=== PATIENT | female | born 1975 | race Caucasian/White ===

== ENCOUNTER 2016-09-21 08:55 | Emergency (ER) | payer MEDICAID | END 2016-09-21 11:26 | disposition home or self-care (01) | DX: S63.502A Unspecified sprain of left wrist, initial encounter (principal); M54.6 Pain in thoracic spine; W01.0XXA Fall on same level from slipping, tripping and stumbling without subsequent striking against object, initial encounter; Y93.01 Activity, walking, marching and hiking; R00.0 Tachycardia, unspecified; M79.7 Fibromyalgia; G62.9 Polyneuropathy, unspecified; E03.9 Hypothyroidism, unspecified; Z98.84 Bariatric surgery status; Z87.891 Personal history of nicotine dependence ==

== ENCOUNTER 2016-10-26 | Outpatient (CLI) | payer MEDICAID | END 2016-10-26 17:24 | disposition critical access hospital (66) | DX: R07.89 Other chest pain (principal) | CPT/HCPCS: A0425; A0427 ==

== ENCOUNTER 2016-10-26 | Outpatient (CLI) | payer MEDICAID | END 2016-10-26 16:31 | disposition home or self-care (01) | DX: R07.89 Other chest pain (principal) ==

== ENCOUNTER 2016-10-26 17:56 | Emergency (ER) | payer MEDICAID ==
[2016-10-26] MEDS ORDERED: PREGABALIN 100 MG CAPSULE PO STA (20:26)
[2016-10-26] MEDS ORDERED: CYCLOBENZAPRINE 10 MG TABLET PO STA (20:26)
[2016-10-26] MEDS ORDERED: oxyCOD/ACETAMIN 5 MG/325 MG TABLET PO STA (20:26)
[2016-10-26] MEDS ORDERED: oxyCOD/ACETAMIN 5 MG/325 MG TABLET PO ONE (20:31)
[2016-10-26] MEDS ORDERED: CYCLOBENZAPRINE 10 MG TABLET PO ONE (20:31)
== END 2016-10-26 23:43 | disposition home or self-care (01) ==
DX: R07.9 Chest pain, unspecified (principal); R94.31 Abnormal electrocardiogram [ECG] [EKG]; E03.9 Hypothyroidism, unspecified; G62.9 Polyneuropathy, unspecified; M79.7 Fibromyalgia; Z87.891 Personal history of nicotine dependence
CPT/HCPCS: 36415; 71020; 80048; 84484; 85025; 85379; 93005; 93010; 99284; A9270

== ENCOUNTER 2017-03-11 21:50 | Emergency (ER) | payer MEDICAID ==
[2017-03-11 21:57] VITALS: BP 115/72
--- NOTE | 2017-03-11 22:22 | ED Physician Documentation ---
PD HPI HEENT - Stated complaint Stated Complaint: EAR PX - Chief complaint Chief Complaint: Heent - History obtained from History obtained from: Patient - History of Present Illness Timing - onset: Other (Several days of increasing left ear pain radiating up and down, not related to chewing. No URI symptoms or hearing difficulty. No fever.) Review of Systems Constitutional: denies: Fever, Chills Nose: denies: Rhinorrhea / runny nose, Congestion Throat: denies: Sore throat Cardiac: denies: Chest pain / pressure, Palpitations PD PAST MEDICAL HISTORY - Past Medical History Past Medical History: Yes Cardiovascular: Other Respiratory: None Neuro: Headache/migraine, Peripheral neuropathy Endocrine/Autoimmune: HyPOthyroidism, Other GI: None CRATE TIER: None : Incontinence, Frequency, Other HEENT: None, Chronic vision loss, Chronic hearing loss Psych: Depression, Anxiety Musculoskeletal: Fibromyalgia, Chronic back pain Derm: None - Past Surgical History Past Surgical History: Yes General: Gastric surgery Ortho: Carpal Tunnel surgery HEENT: Tonsil/Adenoidectomy - Present Medications Home Medications: Ambulatory Orders Medication Instructions Recorded Confirmed Levothyroxine [Synthroid] 100 mcg PO DAILY 02/23/14 10/26/16 Cyclobenzaprine [Flexeril] 10 mg PO TID PRN #15 tablet 05/21/15 09/21/16 Oxycodone HCl/Acetaminophen 1 each PO Q8H PRN #20 tablet 10/16/15 10/26/16 [Percocet 10-325 mg Tablet] Hydrochlorothiazide 12.5 mg PO QDBREAKFAST 06/22/16 09/21/16 Pregabalin [Lyrica] 200 mg PO TID #21 capsule 06/22/16 10/26/16 hydrOXYzine PAMOATE [Vistaril] 25 mg PO BID 06/22/16 10/26/16 Loratadine [Allergy] 10 mg PO DAILY PRN 09/15/16 09/21/16 Metoprolol Tartrate 75 mg PO BID 09/15/16 10/26/16 Promethazine [Phenergan] 25 mg PO BID 09/15/16 10/26/16 Meloxicam [Mobic] 7.5 mg PO BID PRN #14 tablet 03/11/17 Neomycin/Polymyx/Hc Otic Drops 4 drops OT TID #1 bottle 07/07/17 [Cortisporin Ear Susp] - Allergies Allergies/Adverse Reactions: Allergies Allergy/AdvReac Type Severity Reaction Status Date / Time No Known Drug Allergies Allergy Verified 03/11/17 21:57 - Social History Does the pt smoke?: No Smoking Status: Former smoker Does the pt drink ETOH?: No Does the pt have substance abuse?: No - Immunizations Immunizations are current?: Yes - POLST Patient has POLST: No PD ED PE NORMAL - Vitals Vital signs reviewed: Yes - General General: Alert and oriented X 3, No acute distress - HEENT HEENT: Other (She has mild left external otitis without much canal swelling. The TM is normal. She is basically edentulous and has no dental tenderness or trismus or facial edema.) - Neck Neck: Supple, no meningeal sign, No bony TTP - Neuro Neuro: Alert and oriented X 3, hoistman 2-12 intact, No motor deficit, No sensory deficit, Normal speech - Psych Psych: Normal mood, Normal affect Results - Vitals Vitals: Vital Signs - 24 hr 03/11/17 21:55 Temperature 36.1 C L Heart Rate 94 Respiratory 18 Rate Blood Pressure 115/72 O2 Saturation 98 Oxygen O2 Source [With Activity] Room air O2 Source [Without Activity] Room air O2 Source Room air PD MEDICAL DECISION MAKING - ED course ED course: 41-year-old woman with left external otitis. She did need something for pain, she is in pain management with her primary care physician and says the Percocet is not working. A potent nonsteroidal was added to her regimen for the short course and she is placed on Cortisporin. Departure - Departure Disposition: 01 Home, Self Care Clinical Impression: External otitis of left ear Qualifiers: Otitis externa type: hemorrhagic Chronicity: acute Qualified Code(s): H60.322 - Hemorrhagic otitis externa, left ear Condition: Good Record reviewed to determine appropriate education?: Yes Instructions: Cephalosporin, ED Otitis Externa Prescriptions: Neomycin/Polymyx/Hc Otic Drops [Cortisporin Ear Susp] 4 drops OT TID #1 bottle Meloxicam [Mobic] 7.5 mg PO BID PRN #14 tablet PRN Reason: Pain Comments: Call your doctor to arrange a follow-up appointment, make the next available appointment. In the interim, return anytime if worse or if new symptoms develop.
[2017-03-11] MEDS ORDERED: NEOMYCIN/POLYMYX/HC OTIC DROPS ONE (22:26)
[2017-03-11] MEDS ORDERED: NAPROXEN 250 MG TABLET PO ONE (22:28)
[2017-03-11] MEDS: NAPROXEN 250 MG TABLET PO STA (22:34)
[2017-03-11] MEDS: MELOXICAM 7.5 MG TABLET PO STA (22:34)
[2017-03-11] MEDS: NEOMYCIN/POLYMYX/HC OTIC DROPS LEFTEAR STA (22:34)
== END 2017-03-11 22:35 | disposition home or self-care (01) ==
LOC: ED 21:50
DX: H60.92 Unspecified otitis externa, left ear (principal); E03.9 Hypothyroidism, unspecified; G62.9 Polyneuropathy, unspecified; M79.7 Fibromyalgia; Z98.84 Bariatric surgery status; Z87.891 Personal history of nicotine dependence
CPT/HCPCS: 99283

== ENCOUNTER 2017-08-31 18:53 | Emergency (ER) | payer MEDICAID ==
[2017-08-31] MEDS ORDERED: oxyCOD/ACETAMIN 5 MG/325 MG TABLET PO STA (19:49)
--- NOTE | 2017-08-31 19:53 | ED Physician Documentation ---
History of Present Illness - Stated complaint Stated Complaint: BODY ACHES - Chief complaint Chief Complaint: General - History obtained from History obtained from: Patient - History of Present Illness Timing: How many days ago (3) Pain level max: 8 Pain level now: 8 - Additonal information Additional information: Patient is a 42-year-old female who states she has had body aches for the past several days. She also states she had a dental extraction performed today on 2 teeth and was having increased pain in the lower jaw. Was not placed on antibiotics. Has taken Motrin and Tylenol without relief. No fevers. Worse with eating, nothing makes it better. 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 : Incontinence, Frequency, Other HEENT: None, Chronic vision loss, Chronic hearing loss Psych: Depression, Anxiety Musculoskeletal: Fibromyalgia, Chronic back pain Derm: None - Past Surgical History Past Surgical History: Yes General: Gastric surgery Ortho: Carpal Tunnel surgery HEENT: Tonsil/Adenoidectomy - Present Medications Home Medications: Ambulatory Orders Medication Instructions Recorded Confirmed Levothyroxine [Synthroid] 100 mcg PO DAILY 02/23/14 08/31/17 Cyclobenzaprine [Flexeril] 10 mg PO TID PRN #15 tablet 05/21/15 08/31/17 Pregabalin [Lyrica] 200 mg PO TID #21 capsule 06/22/16 08/31/17 hydrOXYzine PAMOATE [Vistaril] 25 mg PO BID 06/22/16 08/31/17 Loratadine [Allergy] 10 mg PO DAILY PRN 09/15/16 08/31/17 Metoprolol Tartrate 75 mg PO BID 09/15/16 08/31/17 Promethazine [Phenergan] 25 mg PO BID 09/15/16 08/31/17 Neomycin/Polymyx/Hc Otic Drops 4 drops OT TID #1 bottle 03/11/17 08/31/17 [Cortisporin Ear Susp] Oxybutynin [Ditropan] 5 mg PO BID 08/31/17 08/31/17 Oxycodone HCl/Acetaminophen 1 - 2 each PO Q6H PRN #7 tablet 08/31/17 [Percocet 5-325 mg Tablet] Penicillin V Potassium 500 mg PO Q6HR #40 tablet 08/31/17 traZODone [Desyrel] 50 mg PO DAILY 08/31/17 08/31/17 - Allergies Allergies/Adverse Reactions: Allergies Allergy/AdvReac Type Severity Reaction Status Date / Time No Known Drug Allergies Allergy Verified 08/31/17 19:06 - Social History Does the pt smoke?: Yes Smoking Status: Current every day smoker Does the pt drink ETOH?: No Does the pt have substance abuse?: No - Immunizations Immunizations are current?: Yes - POLST Patient has POLST: No PD ED PE NORMAL - Vitals Vital signs reviewed: Yes - General General: Alert and oriented X 3, No acute distress, Well developed/nourished - HEENT HEENT: PERRL, Ears normal, Moist mucous membranes, Other (2 recently extracted tooth sockets on the bottom L mandible. Clots in place. ) - Neck Neck: Supple, no meningeal sign - Cardiac Cardiac: RRR, Strong equal pulses - Respiratory Respiratory: No respiratory distress, Clear bilaterally - Abdomen Abdomen: Soft, Non tender, Non distended - Derm Derm: Warm and dry - Psych Psych: Normal mood, Normal affect Results - Vitals Vitals: Vital Signs - 24 hr 08/31/17 08/31/17 19:00 19:55 Temperature 36.5 C Heart Rate 125 H 103 H Respiratory 16 14 Rate Blood Pressure 144/87 H 121/69 O2 Saturation 100 99 Oxygen O2 Source [With Activity] Room air O2 Source [Without Activity] Room air O2 Source Room air PD MEDICAL DECISION MAKING - ED course Complexity details: considered differential, d/w patient, d/w family ED course: Patient is a 42-year-old female who presents the emergency department with body aches, but no fevers. Also increasing dental pain after tooth extraction. Will place on antibiotics and pain medication for home. Concern for possible dry socket? She is well-appearing, nontoxic. Afebrile. Patient counseled regarding signs and symptoms for which I believe and urgent re-evaluation would be necessary. Patient with good understanding of and agreement to plan and is comfortable going home at this time This document was made in part using voice recognition software. While efforts are made to proofread this document, sound alike and grammatical errors may occur. Departure - Departure Disposition: 01 Home, Self Care Clinical Impression: Pain, dental Condition: Good Instructions: ED Tooth Pain Follow-Up: Yisel Melendez ARNP [Primary Care Provider] - Within 1 week Prescriptions: Penicillin V Potassium 500 mg PO Q6HR #40 tablet Oxycodone HCl/Acetaminophen [Percocet 5-325 mg Tablet] 1 - 2 each PO Q6H PRN #7 tablet PRN Reason: pain Comments: Return if you worsen. Do not drink alcohol or drive while on narcotic pain medicine. Note that many narcotic pain relievers also contain tylenol/acetaminophen. Please ensure that your total dose of acetaminophen from all sources does not exceed 3 grams (3000mg) per day. You may constipated on this medication, take a stool softener such as "Colace" twice a day while you are on it. Also recommend a [id number] laxative such as senna or MiraLAX any day that you do not have a bowel movement. If you received narcotic pain medication in the emergency department, do not drive or operate machinery for the next 24 hours. Discharge Date/Time: 08/31/17 20:15
[2017-08-31 19:56] VITALS: BP 121/69
== END 2017-08-31 20:15 | disposition home or self-care (01) ==
LOC: ED 18:53
DX: R68.84 Jaw pain (principal); K08.89 Other specified disorders of teeth and supporting structures; E03.9 Hypothyroidism, unspecified; G62.9 Polyneuropathy, unspecified; F17.200 Nicotine dependence, unspecified, uncomplicated; Z98.890 Other specified postprocedural states
CPT/HCPCS: 99283; A9270

== ENCOUNTER 2017-10-31 15:01 | Emergency (ER) | payer MEDICAID ==
--- NOTE | 2017-10-31 18:15 | ED Physician Documentation ---
PD HPI HEADACHE - Stated complaint Stated Complaint: MIGRAINS/NAUSEA - Chief complaint Chief Complaint: Neuro - History obtained from History obtained from: Patient - History of Present Illness Timing - onset: Last night Timing - details: Gradual onset, Still present Worst headache ever?: No: Worst headache ever? Location: Left, Global Quality: Throbbing Associated symptoms: Nausea. No: Fever, Vomiting Improved by: No: Meds Worsened by: Light, Noise Contributing factors: Recent illness Similar symptoms before: Has not had sx before Recently seen: Not recently seen Review of Systems Constitutional: denies: Fever, Chills Nose: denies: Rhinorrhea / runny nose, Congestion Throat: denies: Sore throat Cardiac: denies: Chest pain / pressure Respiratory: denies: Dyspnea, Cough GI: denies: Nausea, Vomiting, Diarrhea Skin: denies: Rash, Lesions PD PAST MEDICAL HISTORY - Past Medical History Cardiovascular: Other Respiratory: None Neuro: Headache/migraine, Peripheral neuropathy Endocrine/Autoimmune: HyPOthyroidism, Other GI: None 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 : Incontinence, Frequency, Other HEENT: None, Chronic vision loss, Chronic hearing loss Psych: Depression, Anxiety Musculoskeletal: Fibromyalgia, Chronic back pain Derm: None - Past Surgical History Past Surgical History: Yes General: Gastric surgery Ortho: Carpal Tunnel surgery HEENT: Tonsil/Adenoidectomy - Present Medications Home Medications: Ambulatory Orders Medication Instructions Recorded Confirmed Levothyroxine [Synthroid] 100 mcg PO DAILY 02/23/14 08/31/17 Cyclobenzaprine [Flexeril] 10 mg PO TID PRN #15 tablet 05/21/15 08/31/17 hydrOXYzine PAMOATE [Vistaril] 25 mg PO BID 06/22/16 08/31/17 Loratadine [Allergy] 10 mg PO DAILY PRN 09/15/16 08/31/17 Metoprolol Tartrate 75 mg PO BID 09/15/16 08/31/17 Promethazine [Phenergan] 25 mg PO BID 09/15/16 08/31/17 Neomycin/Polymyx/Hc Otic Drops 4 drops OT TID #1 bottle 03/11/17 08/31/17 [Cortisporin Ear Susp] Oxybutynin [Ditropan] 5 mg PO BID 08/31/17 08/31/17 Butalb/Acetaminophen/Caffeine 1 each PO Q6H PRN #20 capsule 10/31/17 [Fioricet 50-300-40 mg Capsule] Ondansetron HCl [Zofran] 4 mg PO Q6H PRN #20 tablet 10/31/17 - Allergies Allergies/Adverse Reactions: Allergies Allergy/AdvReac Type Severity Reaction Status Date / Time No Known Drug Allergies Allergy Verified 08/31/17 19:06 - Social History Does the pt smoke?: Yes Smoking Status: Current every day smoker Does the pt drink ETOH?: No Does the pt have substance abuse?: No - Immunizations Immunizations are current?: Yes - POLST Patient has POLST: No PD ED PE NORMAL - Vitals Vital signs reviewed: Yes - General General: Alert and oriented X 3, Well developed/nourished - HEENT HEENT: Ears normal, Pharynx benign - Neck Neck: Supple, no meningeal sign, No adenopathy - Cardiac Cardiac: RRR, No murmur - Respiratory Respiratory: Clear bilaterally - Abdomen Abdomen: Soft, Non tender - Back Back: No CVA TTP - Derm Derm: Normal color, Warm and dry - Neuro Neuro: Alert and oriented X 3, grocery supervisor 2-12 intact, No motor deficit, No sensory deficit, Normal speech Eye Opening: Spontaneous Motor: Obeys Commands Verbal: Oriented GCS Score: 15 Results - Vitals Vitals: Oxygen O2 Source [With Activity] Room air O2 Source [Without Activity] Room air O2 Source Room air PD MEDICAL DECISION MAKING - ED course Complexity details: reviewed old records (not that often of visits for this. ), re-evaluated patient (much improved after migraine meds), considered differential, d/w patient Departure - Departure Disposition: 01 Home, Self Care Clinical Impression: Migraine Qualifiers: Migraine type: without aura Status migrainosus presence: without status migrainosus Intractability: not intractable Qualified Code(s): G43.009 - Migraine without aura, not intractable, without status migrainosus Condition: Stable Record reviewed to determine appropriate education?: Yes Instructions: ED Headache Migraine Follow-Up: Yisel Melendez ARNP [Primary Care Provider] - Prescriptions: Butalb/Acetaminophen/Caffeine [Fioricet 50-300-40 mg Capsule] 1 each PO Q6H PRN #20 capsule PRN Reason: Headache Ondansetron HCl [Zofran] 4 mg PO Q6H PRN #20 tablet PRN Reason: Nausea / Vomiting Comments: Continue usual medications. Drink lots of fluids. For subsequent migraines, use the ibuprofen or Excedrin Migraine that you commonly would use and could combine it with ondansetron and Fioricet which is a particular migraine medicine. See if those work for you in that combination. Follow-up with your primary care Discharge Date/Time: 10/31/17 20:39
[2017-10-31] MEDS ORDERED: KETOROLAC 60 MG/2 ML VIAL IM STA (19:05)
[2017-10-31] MEDS ORDERED: HYDROmorphone 1 MG/ML SYRINGE IM STA (19:05)
[2017-10-31] MEDS ORDERED: PROMETHAZINE 25 MG/1 ML VIAL IM STA (19:05)
[2017-10-31] MEDS ORDERED: ONDANSETRON ODT 4 MG TABLET TL STA (19:08)
[2017-10-31] MEDS ORDERED: oxyCOD/ACETAMIN 5 MG/325 MG TABLET PO STA (20:22)
[2017-10-31] MEDS ORDERED: DEXAMETHASONE 10 MG/ML VIAL PO STA (20:22)
[2017-10-31 20:36] VITALS: BP 116/79
[2017-10-31] MEDS ORDERED: CHERRY SYRUP 10 ML UDC PO ONE (20:36)
== END 2017-10-31 20:39 | disposition home or self-care (01) ==
LOC: ED 15:01
DX: G43.009 Migraine without aura, not intractable, without status migrainosus (principal); E03.9 Hypothyroidism, unspecified; F17.200 Nicotine dependence, unspecified, uncomplicated
CPT/HCPCS: 96372; 99283; 99284; A9270; J1170; Q0162

== ENCOUNTER 2017-11-23 14:16 | Emergency (ER) | payer MEDICAID ==
--- NOTE | 2017-11-23 16:30 | ED Physician Documentation ---
PD HPI URI - Stated complaint Stated Complaint: ALL OVER PX - Chief complaint Chief Complaint: General - History obtained from History obtained from: Patient - History of Present Illness Timing duration: Days Timing details: Gradual onset (has had increase of diffuse pains in muscles over several days without obvious causation. Has fibromyalgia and has had similar flare ups in the past.), Still present Associated symptoms: No: Fever, Chills, Nasal congestion, Rhinorrhea, Sore throat, Dry cough, Chest pain, NVD Contributing factors: No: Sick contact, Travel, Immunocompromised Similar symptoms before: Diagnosis (firbromyalgia) Recently seen: Not recently seen Review of Systems Constitutional: reports: Myalgias, Fatigue. denies: Fever, Chills Nose: denies: Rhinorrhea / runny nose, Congestion Throat: denies: Sore throat Cardiac: denies: Chest pain / pressure, Palpitations Respiratory: denies: Dyspnea, Cough GI: reports: Nausea. 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 : Incontinence, Frequency, Other HEENT: None, Chronic vision loss, Chronic hearing loss Psych: Depression, Anxiety Musculoskeletal: Fibromyalgia, Chronic back pain Derm: None - Past Surgical History Past Surgical History: Yes General: Gastric surgery Ortho: Carpal Tunnel surgery HEENT: Tonsil/Adenoidectomy - Present Medications Home Medications: Ambulatory Orders Medication Instructions Recorded Confirmed Levothyroxine [Synthroid] 100 mcg PO DAILY 02/23/14 08/31/17 Cyclobenzaprine [Flexeril] 10 mg PO TID PRN #15 tablet 05/21/15 08/31/17 hydrOXYzine PAMOATE [Vistaril] 25 mg PO BID 06/22/16 08/31/17 Loratadine [Allergy] 10 mg PO DAILY PRN 09/15/16 08/31/17 Metoprolol Tartrate 75 mg PO BID 09/15/16 08/31/17 Promethazine [Phenergan] 25 mg PO BID 09/15/16 08/31/17 Oxybutynin [Ditropan] 5 mg PO BID 08/31/17 08/31/17 Butalb/Acetaminophen/Caffeine 1 each PO Q6H PRN #20 capsule 10/31/17 [Fioricet 50-300-40 mg Capsule] Dexamethasone [Decadron] 4 mg PO DAILY #5 tablet 11/23/17 Oxycodone HCl/Acetaminophen 1 each PO Q6H PRN #20 tablet 11/23/17 [Percocet 5-325 mg Tablet] - Allergies Allergies/Adverse Reactions: Allergies Allergy/AdvReac Type Severity Reaction Status Date / Time No Known Drug Allergies Allergy Verified 11/23/17 14:26 - Social History Does the pt smoke?: Yes Smoking Status: Current every day smoker Does the pt drink ETOH?: No Does the pt have substance abuse?: No - Immunizations Immunizations are current?: Yes - POLST Patient has POLST: No PD ED PE NORMAL - Vitals Vital signs reviewed: Yes - General General: Alert and oriented X 3, Well developed/nourished, Other (appears in pain and uncomfortable. Tachycardic though patient says her heart rate fujj) - HEENT HEENT: Atraumatic, Ears normal, Pharynx benign - Neck Neck: Supple, no meningeal sign, No adenopathy, Thyroid normal - Cardiac Cardiac: RRR (tachy but regular), No murmur - Respiratory Respiratory: Clear bilaterally - Abdomen Abdomen: Soft, Non tender - Back Back: No CVA TTP - Derm Derm: Normal color, Warm and dry - Extremities Extremities: No edema, No calf tenderness / cord - Neuro Neuro: Alert and oriented X 3, No motor deficit, Normal speech Results - Vitals Vitals: Oxygen O2 Source [With Activity] Room air O2 Source [Without Activity] Room air O2 Source Room air - Labs Labs: Laboratory Tests 11/23/17 14:29 Influenza A (Rapid) Negative Influenza B (Rapid) Negative Influenza Types A,B Ag - PD MEDICAL DECISION MAKING - ED course Complexity details: reviewed results, considered differential (no obvious infections, has had similar in the past. Consider if viral illness or such has triggered the flare of fibromyalgia. ), d/w patient Departure - Departure Disposition: 01 Home, Self Care Clinical Impression: Myalgia, Diffuse pain Condition: Stable Record reviewed to determine appropriate education?: Yes Instructions: ED Muscle Aching Follow-Up: Yisel Melendez ARNP [Primary Care Provider] - Prescriptions: Dexamethasone [Decadron] 4 mg PO DAILY #5 tablet Oxycodone HCl/Acetaminophen [Percocet 5-325 mg Tablet] 1 each PO Q6H PRN #20 tablet PRN Reason: Pain Comments: Continue usual medications. Add Decadron daily for 5 more days. Percocet if needed for pain short-term. Follow-up with your primary care if not improved over the next several days. Discharge Date/Time: 11/23/17 18:39
[2017-11-23] MEDS ORDERED: HYDROmorphone 1 MG/ML CARPUJECT IM STA (16:52)
[2017-11-23] MEDS ORDERED: DEXAMETHASONE 10 MG/ML VIAL PO STA (16:52)
[2017-11-23] MEDS ORDERED: KETOROLAC 60 MG/2 ML VIAL IM STA (16:52)
[2017-11-23 18:38] VITALS: BP 99/62
== END 2017-11-23 18:39 | disposition home or self-care (01) ==
LOC: ED 14:16
DX: M79.7 Fibromyalgia (principal); R52 Pain, unspecified; G62.9 Polyneuropathy, unspecified; E03.9 Hypothyroidism, unspecified; Z98.84 Bariatric surgery status; F17.200 Nicotine dependence, unspecified, uncomplicated
CPT/HCPCS: 87275; 87276; 96372; 99283; J1170

== ENCOUNTER 2018-01-19 14:36 | Outpatient (CLI) | payer MEDICAID ==
[2018-01-19 20:05] LABS: RHEUMATOID FACTOR NEGATIVE (Negative)
[2018-01-21 14:31] LABS: ANA SCREEN NEGATIVE (NEGATIVE)
== END 2018-01-19 14:37 | disposition home or self-care (01) ==
LOC: LAB.F 14:36
PROVIDERS: ATTEND Family Medicine
DX: M25.50 Pain in unspecified joint (principal)
CPT/HCPCS: 36415; 84443; 85651; 86038; 86140; 86430

== ENCOUNTER 2018-02-28 15:06 | Emergency (ER) | payer MEDICAID ==
--- NOTE | 2018-02-28 15:18 | ED Physician Documentation ---
PD HPI BACK INJURY - Stated complaint Stated Complaint: BACK/HIP PX - History obtained from History obtained from: Patient - History of Present Illness Location: Lower Type of injury: Twist (she was moving fridge down stairs on handtruck, so leaning and bending/twisting. No abrupt pain but hurting later in day and continued. Pain lower back to right mostly. Worse with movement.) Where injury occurred: Other (friends house) Timing - onset: How many days ago (3) Timing - duration: Days (2-3) Timing - details: Gradual onset, Still present Quality: Pain, Spasm Improved by: No: Rest Worsened by: Moving, Palpating Associated symptoms: No: Fever, Weakness, Numbness, Incontinent of urine Contributing factors: No: Anticoagulated Similar symptoms before: No diagnosis (has had back pains in the past.) Review of Systems Constitutional: denies: Fever, Chills, Myalgias Nose: denies: Rhinorrhea / runny nose, Congestion Throat: denies: Sore throat Cardiac: denies: Chest pain / pressure Respiratory: denies: Dyspnea, Cough GI: denies: Abdominal Pain, Nausea, Vomiting, Constipation, Diarrhea : denies: Dysuria, Frequency, Discharge Skin: denies: Rash Musculoskeletal: reports: Back pain. denies: Neck pain, Extremity pain Neurologic: denies: Generalized weakness, Focal weakness, Numbness, Near syncope PD PAST MEDICAL HISTORY - Past Medical History Cardiovascular: Other Respiratory: None Endocrine/Autoimmune: HyPOthyroidism, Other GI: None CARDIOVASCULAR RN: None : Incontinence, Frequency, Other HEENT: None, Chronic vision loss, Chronic hearing loss Psych: Depression, Anxiety Musculoskeletal: Fibromyalgia, Chronic back pain Derm: None - Past Surgical History Past Surgical History: Yes General: Gastric surgery Ortho: Carpal Tunnel surgery HEENT: Tonsil/Adenoidectomy - Present Medications Home Medications: Ambulatory Orders Medication Instructions Recorded Confirmed Levothyroxine [Synthroid] 100 mcg PO DAILY 02/23/14 08/31/17 Cyclobenzaprine [Flexeril] 10 mg PO TID PRN #15 tablet 05/21/15 08/31/17 hydrOXYzine PAMOATE [Vistaril] 25 mg PO BID 06/22/16 08/31/17 Loratadine [Allergy] 10 mg PO DAILY PRN 09/15/16 08/31/17 Metoprolol Tartrate 75 mg PO BID 09/15/16 08/31/17 Promethazine [Phenergan] 25 mg PO BID 09/15/16 08/31/17 Oxybutynin [Ditropan] 5 mg PO BID 08/31/17 08/31/17 Butalb/Acetaminophen/Caffeine 1 each PO Q6H PRN #20 capsule 10/31/17 [Fioricet 50-300-40 mg Capsule] Dexamethasone [Decadron] 4 mg PO DAILY #5 tablet 11/23/17 Oxycodone HCl/Acetaminophen 1 each PO Q6H PRN #20 tablet 11/23/17 [Percocet 5-325 mg Tablet] Dexamethasone [Decadron] 4 mg PO DAILY #5 tablet 02/28/18 HYDROcodone/ACET 7.5/325 [[place] 1 each PO Q6H PRN #25 tablet 02/28/18 7.5/325] Lidocaine HCl/Menthol 1 each TP BID PRN #10 adh..patch 02/28/18 [Lidozenpatch 4%-1%] Tizanidine HCl 4 mg PO TID PRN #30 capsule 02/28/18 - Allergies Allergies/Adverse Reactions: Allergies Allergy/AdvReac Type Severity Reaction Status Date / Time No Known Drug Allergies Allergy Verified 11/23/17 14:26 - Social History Does the pt smoke?: Yes Smoking Status: Current every day smoker Does the pt drink ETOH?: No Does the pt have substance abuse?: No - Immunizations Immunizations are current?: Yes - POLST Patient has POLST: No PD ED PE NORMAL - Vitals Vital signs reviewed: Yes - General General: Alert and oriented X 3, Well developed/nourished - Cardiac Cardiac: RRR, No murmur - Respiratory Respiratory: Clear bilaterally - Abdomen Abdomen: Normal bowel sounds, Soft - Female Female : Deferred - Rectal Rectal: Deferred - Back Back: No CVA TTP, No spinal TTP (tender right lower muscles without rash nor redness. ) - Derm Derm: Normal color, Warm and dry, No rash - Extremities Extremities: No deformity, No tenderness to palpate, Normal ROM s pain - Neuro Neuro: Alert and oriented X 3, No motor deficit, No sensory deficit, Normal speech, Other (good reflexes at knees. ) Results - Vitals Vitals: Vital Signs - 24 hr 02/28/18 02/28/18 15:11 16:00 Temperature 36.4 C L 36.1 C L Heart Rate 119 H 108 H Respiratory 18 18 Rate Blood Pressure 133/78 H 118/79 O2 Saturation 100 99 Oxygen O2 Source [With Activity] Room air O2 Source [Without Activity] Room air O2 Source Room air PD MEDICAL DECISION MAKING - ED course Complexity details: considered differential (seems myofascial and no red flags, so no labs/imaging indicated. ), d/w patient - Sepsis Event Vital Signs: Vital Signs - 24 hr 02/28/18 02/28/18 15:11 16:00 Temperature 36.4 C L 36.1 C L Heart Rate 119 H 108 H Respiratory 18 18 Rate Blood Pressure 133/78 H 118/79 O2 Saturation 100 99 Oxygen O2 Source [With Activity] Room air O2 Source [Without Activity] Room air O2 Source Room air Departure - Departure Disposition: 01 Home, Self Care Clinical Impression: Low back strain Qualifiers: Encounter type: initial encounter Qualified Code(s): S39.012A - Strain of muscle, fascia and tendon of lower back, initial encounter Condition: Stable Record reviewed to determine appropriate education?: Yes Instructions: ED Sprain Strain Lumbar Follow-Up: Yisel Melendez ARNP [Primary Care Provider] - Prescriptions: Dexamethasone [Decadron] 4 mg PO DAILY #5 tablet HYDROcodone/ACET 7.5/325 [[place] 7.5/325] 1 each PO Q6H PRN #25 tablet PRN Reason: Pain Lidocaine HCl/Menthol [Lidozenpatch 4%-1%] 1 each TP BID PRN #10 adh..patch PRN Reason: Pain Tizanidine HCl 4 mg PO TID PRN #30 capsule PRN Reason: Spasms Comments: Continue your naproxen. To it add Decadron steroid anti-inflammatory daily for 5 more days. You can try tizanidine muscle relaxant instead of your Flexeril for the next week or 2. See if it is more effective. Add Tylenol or hydrocodone if needed for pains. Topical lidocaine/Menthol patch will likely help as well. At this point it sounds like musculoskeletal back pain and we'll treat it that way. No indication for x-rays or such at this time. Follow-up with your primary care though if it is persisting symptoms, or other symptoms develop with it. Discharge Date/Time: 02/28/18 16:00
[2018-02-28] MEDS: DEXAMETHASONE 10 MG/ML VIAL PO STA (15:55)
[2018-02-28] MEDS: METHOCARBAMOL 500 MG TABLET PO STA (15:56)
[2018-02-28] MEDS: HYDROcod/ACETAM 10 MG/325 MG TABLET PO STA (15:56)
[2018-02-28 16:02] VITALS: BP 118/79
== END 2018-02-28 16:00 | disposition home or self-care (01) ==
LOC: ED 15:06
DX: S39.012A Strain of muscle, fascia and tendon of lower back, initial encounter (principal); X50.9XXA Other and unspecified overexertion or strenuous movements or postures, initial encounter; E03.9 Hypothyroidism, unspecified; F17.200 Nicotine dependence, unspecified, uncomplicated
CPT/HCPCS: 99283; A9270

== ENCOUNTER 2018-04-17 19:36 | Inpatient (IN) | payer MEDICAID ==
[2018-04-17] MEDS ORDERED: SODIUM CHLORIDE 0.9% 1,000 ML IV ONE (21:05)
[2018-04-17] MEDS ORDERED: ACETAMINOPHEN 500 MG TABLET PO STA (21:05)
[2018-04-17] MEDS ORDERED: HYDROmorphone 1 MG/ML CARPUJECT IVP STA ×2 (21:05→23:17)
[2018-04-17] MEDS ORDERED: AMPICILLIN/SULBACTAM 3 GM in SODIUM CHLORIDE 0.9% MINIBAG 100 ML IV STA (21:06)
[2018-04-17 21:29] LABS: BASOPHILS % (AUTO) 0.8 %; EOSINOPHILS % (AUTO) 0.9 %; HGB - HEMOGLOBIN 11.7 g/dL (12.0-16.0); MEAN CORPUSCULAR HEMOGLOBIN 24.9 pg (27.0-31.0); MEAN CORPUSCULAR VOLUME 73.3 fL (81.0-99.0); MEAN PLATELET VOLUME 9.4 fL (7.9-10.8); MONOCYTES % (AUTO) 6.9 %; NEUTROPHILS % (AUTO) 79.4 %; PLT - PLATELET COUNT 259 10^3/uL (130-450); RED BLOOD COUNT 4.69 10^6/uL (4.20-5.40); RED CELL DISTRIBUTION WIDTH 16.3 % (12.0-15.0); WHITE BLOOD COUNT 20.4 x10^3/uL (4.8-10.8)
[2018-04-17 21:31] LABS: ABNORMAL LYMPHS % (MANUAL) 0 %
--- NOTE | 2018-04-17 21:37 | ED Physician Documentation ---
History of Present Illness - Stated complaint Stated Complaint: FEM /NAUSEA - Chief complaint Chief Complaint: Wound - History obtained from History obtained from: Patient - Additonal information Additional information: 42-year-old female presents the emergency department with increasing groin pain which tracks down into her rectum. The patient reports swelling and redness of her groin into her labia and down into her rectum. The patient reports difficulty sitting secondary to the pain. The patient reports general weakness , chills and fatigue. Symptoms are described as severe. No triggering factors. No relieving factors. No other associated symptoms Review of Systems Constitutional: reports: Chills, Fatigue Eyes: denies: Photophobia Ears: denies: Ear pain Nose: denies: Congestion Throat: denies: Sore throat Cardiac: denies: Palpitations Respiratory: denies: Cough GI: denies: Abdominal Pain : denies: Dysuria Skin: reports: Other (Swelling and erythema of the groin and buttocks) Musculoskeletal: denies: Neck pain Neurologic: denies: Generalized weakness Immunocompromised: denies: Chemotherapy PD PAST MEDICAL HISTORY - Past Medical History Past Medical History: Yes Cardiovascular: Other Respiratory: None Endocrine/Autoimmune: HyPOthyroidism, Other GI: None HEEL SCORER: None : Incontinence, Frequency, Other HEENT: None, Chronic vision loss, Chronic hearing loss Psych: Depression, Anxiety Musculoskeletal: Fibromyalgia, Chronic back pain Derm: None Other Past Medical History: Hypoglycemia - Past Surgical History Past Surgical History: Yes General: Gastric surgery Ortho: Carpal Tunnel surgery HEENT: Tonsil/Adenoidectomy - Present Medications Home Medications: Ambulatory Orders Medication Instructions Recorded Confirmed Levothyroxine [Synthroid] 100 mcg PO DAILY 02/23/14 08/31/17 Cyclobenzaprine [Flexeril] 10 mg PO TID PRN #15 tablet 05/21/15 08/31/17 hydrOXYzine PAMOATE [Vistaril] 25 mg PO BID 06/22/16 08/31/17 Loratadine [Allergy] 10 mg PO DAILY PRN 09/15/16 08/31/17 Metoprolol Tartrate 75 mg PO BID 09/15/16 08/31/17 Promethazine [Phenergan] 25 mg PO BID 09/15/16 08/31/17 Oxybutynin [Ditropan] 5 mg PO BID 08/31/17 08/31/17 Dexamethasone [Decadron] 4 mg PO DAILY #5 tablet 11/23/17 - Allergies Allergies/Adverse Reactions: Allergies Allergy/AdvReac Type Severity Reaction Status Date / Time No Known Drug Allergies Allergy Verified 04/17/18 19:50 - Social History Does the pt smoke?: Yes Smoking Status: Current every day smoker Does the pt drink ETOH?: No Does the pt have substance abuse?: No - Immunizations Immunizations are current?: Yes - POLST Patient has POLST: No PD ED PE NORMAL - General General: Alert and oriented X 3, Other (The patient appears quite uncomfortable) - HEENT HEENT: Atraumatic, PERRL, EOMI, Ears normal - Neck Neck: Supple, no meningeal sign - Cardiac Cardiac: RRR, Strong equal pulses, Other (Tachycardia) - Respiratory Respiratory: No respiratory distress, Clear bilaterally - Abdomen Abdomen: Soft, Non tender - Female Female : Other (Erythema and swelling of the labia, pubic wound, groin andButtocks) - Derm Derm: Other (The patient has extensive swelling of the left labia, pubic mound which tracks down into her thigh and gluteal fold. There is no clear area of abscess and the patient is in quite amount of discomfort during examination) - Extremities Extremities: No deformity, No edema - Neuro Neuro: Alert and oriented X 3, Normal speech - Psych Psych: Normal affect Results - Vitals Vitals: Vital Signs - 24 hr 04/17/18 04/17/18 04/17/18 19:47 22:00 22:30 Temperature 36.8 C 36.6 C Heart Rate 136 H 96 94 Respiratory 22 16 Rate Blood Pressure 120/95 H 110/66 95/62 O2 Saturation 99 99 99 04/17/18 04/17/18 23:14 23:37 Temperature Heart Rate 101 H 99 Respiratory 16 17 Rate Blood Pressure 100/62 91/57 L O2 Saturation 98 97 Oxygen O2 Source [With Activity] Room air O2 Source [Without Activity] Room air O2 Source Room air - Labs Labs: Laboratory Tests 04/17/18 04/17/18 04/17/18 21:15 21:15 21:15 WBC 20.4 H RBC 4.69 Hgb 11.7 L Hct 34.4 L MCV 73.3 L MCH 24.9 L MCHC 34.0 RDW 16.3 H Plt Count 259 MPV 9.4 Neut # (Auto) Not Reportable Lymph # (Auto) Not Reportable [place] # (Auto) Not Reportable Eos # (Auto) Not Reportable Baso # (Auto) Not Reportable Absolute Nucleated RBC Not Reportable Total Counted 100 Band Neuts % (Manual) 10 Abnorm Lymph % (Manual) 0 Nucleated RBC % Not Reportable Neutrophils # (Manual) 17.5 H Lymphocytes # (Manual) 2.4 Monocytes # (Manual) 0.2 Eosinophils # (Manual) 0.2 Basophils # (Manual) 0.0 Differential Comment MANUAL DIFFERENTIAL Manual Slide Review Indicated WBC Morphology NORMAL APPEARANCE Platelet Estimate NORMAL (130-450,000) Platelet Morphology NORMAL APPEARANCE RBC Morph Micro Appear NORMAL APPEARANCE Sodium 133 L Potassium 2.6 L Chloride 97 L Carbon Dioxide 26 Anion Gap 10.0 BUN 15 Creatinine 1.0 Estimated GFR (MDRD) 61 L Glucose 112 H Lactic Acid 1.0 Calcium 8.9 Magnesium 1.8 Total Bilirubin 1.0 AST 15 ALT 13 Alkaline Phosphatase 92 Total Protein 7.4 Albumin 3.3 Globulin 4.1 Albumin/Globulin Ratio 0.8 L Lipase 23 Serum HCG, Qual Urine Color Urine Clarity Urine pH Ur Specific [place] Urine Protein Urine Glucose (UA) Urine Ketones Urine Occult Blood Urine Nitrite Urine Bilirubin Urine Urobilinogen Ur Leukocyte Esterase Urine RBC Urine WBC Ur Squamous Epith Cells Urine Bacteria Ur Microscopic Review Urine Culture Comments 04/17/18 04/17/18 21:15 23:05 WBC RBC Hgb Hct MCV MCH MCHC RDW Plt Count MPV Neut # (Auto) Lymph # (Auto) [place] # (Auto) Eos # (Auto) Baso # (Auto) Absolute Nucleated RBC Total Counted Band Neuts % (Manual) Abnorm Lymph % (Manual) Nucleated RBC % Neutrophils # (Manual) Lymphocytes # (Manual) Monocytes # (Manual) Eosinophils # (Manual) Basophils # (Manual) Differential Comment Manual Slide Review WBC Morphology Platelet Estimate Platelet Morphology RBC Morph Micro Appear Sodium Potassium Chloride Carbon Dioxide Anion Gap BUN Creatinine Estimated GFR (MDRD) Glucose Lactic Acid Calcium Magnesium Total Bilirubin AST ALT Alkaline Phosphatase Total Protein Albumin Globulin Albumin/Globulin Ratio Lipase Serum HCG, Qual NEGATIVE Urine Color YELLOW Urine Clarity CLEAR Urine pH 5.5 Ur Specific [place] 1.015 Urine Protein NEGATIVE Urine Glucose (UA) NEGATIVE Urine Ketones TRACE Urine Occult Blood NEGATIVE Urine Nitrite POSITIVE H Urine Bilirubin NEGATIVE Urine Urobilinogen 1 (NORMAL) Ur Leukocyte Esterase NEGATIVE Urine RBC None Seen Urine WBC 0-3 Ur Squamous Epith Cells MOD Squamous H Urine Bacteria Many H Ur Microscopic Review INDICATED Urine Culture Comments NOT INDICATED - Rads (name of study) CT pelvis with IV contrast Radiology: Final report received (Impression: 1. Left labial/perineal cellulitis without evidence of abscess 2. Potential left perianal sinus tract. MRI utilizing fistula protocol may be helpful to assess for potential perianal fistula) PD MEDICAL DECISION MAKING - ED course ED course: The patient has acute cellulitis, on physical exam there is no evidence of necrotizing fasciitis. On reevaluation the patient's resting comfortably and her symptoms are under better control. The patient will require admission to the hospital for ongoing management with IV antibiotics.The patient may also require further workup with MRI to rule out a fistula per the CT read. The findings and plan were discussed with the patient understands and agrees. The case was discussed with the hospitalist Dr. Toscano who accepts the patient onto her service - Sepsis Event Vital Signs: Vital Signs - 24 hr 04/17/18 04/17/18 04/17/18 19:47 22:00 22:30 Temperature 36.8 C 36.6 C Heart Rate 136 H 96 94 Respiratory 22 16 Rate Blood Pressure 120/95 H 110/66 95/62 O2 Saturation 99 99 99 04/17/18 04/17/18 23:14 23:37 Temperature Heart Rate 101 H 99 Respiratory 16 17 Rate Blood Pressure 100/62 91/57 L O2 Saturation 98 97 Oxygen O2 Source [With Activity] Room air O2 Source [Without Activity] Room air O2 Source Room air Departure - Departure Disposition: ED Place in Observation Clinical Impression: Cellulitis of female genitalia Condition: Good
[2018-04-17 21:42] LABS: ALBUMIN 3.3 g/dL (3.2-5.5); ALBUMIN/GLOBULIN RATIO 0.8 (1.0-2.2); CALCIUM 8.9 mg/dL (8.5-10.3); MAGNESIUM 1.8 mg/dL (1.7-2.8); TOTAL PROTEIN 7.4 g/dL (6.7-8.2)
[2018-04-17 21:47] LABS: BAND NEUTROPHILS % (MANUAL) 10 %; DIFFERENTIAL COMMENT MANUAL DIFFERENTIAL; EOSINOPHILS # (MANUAL) 0.2 10^3/uL (0-0.7); LYMPHOCYTES # (MANUAL) 2.4 10^3/uL (1.5-3.5); LYMPHOCYTES % (MANUAL) 12 %; MONOCYTES # (MANUAL) 0.2 10^3/uL (0.0-1.0); NEUTROPHILS # (MANUAL) 17.5 10^3/uL (1.5-6.6); NEUTROPHILS % (MANUAL) 76 %; PLATELET ESTIMATE, MANUAL NORMAL (130-450,000) (NORMAL); PLATELET MORPHOLOGY NORMAL APPEARANCE (NORMAL); RBC MORPHOLOGY (MULTIPLE) NORMAL APPEARANCE (NORMAL)
[2018-04-17] MEDS ORDERED: POTASSIUM CHLORIDE 20 MEQ TABLET PO STA (21:47)
[2018-04-17 21:58] LABS: HCG,QUALITATIVE BLOOD NEGATIVE
[2018-04-17] MEDS ORDERED: metroNIDAZOLE 500 MG/100 ML 500 MG/100 ML BAG IV SCH (22:00)
[2018-04-17] MEDS ORDERED: IOPAMIDOL-300 100 ML VIAL ONE (22:03)
[2018-04-17] MEDS ORDERED: IOPAMIDOL-300 100 ML VIAL IVP ONE (22:53)
[2018-04-17 23:09] LABS: BILIRUBIN,URINE NEGATIVE (NEGATIVE); GLUCOSE, URINE (UA) NEGATIVE (NEGATIVE); KETONES,URINE (UA) TRACE mg/dL (NEGATIVE); LEUKOCYTE ESTERASE, URINE NEGATIVE (NEGATIVE); NITRITE,URINE POSITIVE (NEGATIVE); OCCULT BLOOD,URINE NEGATIVE (NEGATIVE); PH,URINE 5.5 PH (5.0-7.5); PROTEIN,URINE NEGATIVE (NEGATIVE); UROBILINOGEN,URINE 1 (NORMAL) E.U./dL (NORMAL)
[2018-04-17 23:11] LABS: CLARITY,URINE CLEAR (CLEAR)
[2018-04-17 23:15] LABS: BACTERIA,URINE Many /HPF (None Seen); RBC,URINE None Seen /HPF (0-5); SQUAMOUS EPITHELIAL CELL,UR MOD Squamous (<= Few)
--- NOTE | 2018-04-17 23:38 | CT Report ---
Procedure Date: 04/17/2018 Accession Number: [id number] / [id number] Procedure: CT - Pelvis W/ CPT Code: FULL RESULT: EXAM: CT PELVIS EXAM DATE: 04/17/2018 10:54 PM. CLINICAL HISTORY: Increased labial redness tracking down into rectum. COMPARISONS: None. TECHNIQUE: Routine helical CT imaging was performed through the pelvis. IV contrast: 100 mL Isovue 300. Enteric contrast: No. Reconstructions: Coronal and sagittal. In accordance with CT protocol optimization, one or more of the following dose reduction techniques were utilized for this exam: automated exposure control, adjustment of mA and/or KV based on patient size, or use of iterative reconstructive technique. FINDINGS: Visualized Abdominal Organs: Normal. Peritoneal Cavity/Bowel: Normal. No free fluid, free air or adenopathy. No masses or acute inflammatory process. The appendix is well visualized and normal. Pelvic Organs: There is subcutaneous edema and stranding in the region of the left labia and perineum. A linear density is seen extending from the left perineum subcutaneous fat towards the anorectal region. No clear communication with the rectum or anal canal is seen. The uterus is unremarkable. No adnexal mass. Vasculature: No aneurysms or other significant abnormality. Bones: No significant abnormality. Other: None. IMPRESSION: 1. Left labial/perineum cellulitis without evidence of abscess. 2. Potential left perianal sinus tract. MRI utilizing fistula protocol may be helpful to assess for potential perianal fistula. [facility]
[2018-04-18] MEDS ORDERED: ONDANSETRON ODT 4 MG TABLET TL PRN (00:07)
--- NOTE | 2018-04-18 00:19 | HISTORY & PHYSICAL EXAMINATION ---
Chief Complaint - Chief Complaint Chief Complaint: labial pain and swelling History of Present Illness - Admitted From Admitted From:: ER/Home - History Obtained From Records Reviewed: Kori Dixon History obtained from: Patient, ER MD Exam Limitations: none - History of Present Illness HPI Comment/Other: She is a morbidly obese female who has a past medical history of chronic pain syndrome from back pain and fibromyalgia and came to the emergency room thinking that she had a recurrence of a Bartholin's gland infection. She had a fairly severe infection with labial pain back in her 20s. She started having pain in the same area April 14, and thought that she was having another infeciton. While she did see her PCP in the office on April 13 requesting a referral to the pain clinic, she did not call them back on April 14 when she started having the labial pain. She denies fever, but does have chills and fatigue. Her discomfort is mainly localized to the pudendal and labial area.It does radiate to her rectum. Because of her morbid obesity, she finds it difficult to visualize her site of discomfort. But what from she can see, what she can see is red and tender. She was seen in the emergency room where her initial heart rate was 136. But after fluid resuscitation her heart rates down to 98. She has been afebrile at 36.8. She is saturating well on room air. Blood pressure was initially 120/95 in the lower she was in the emergency room was 95/62. Her lactic acid level was normal. She does have hyponatremia at 133, hypokalemia at 2.6, and a white cell count of 20.4 thousand with a left shift.The ER physician does confirm that she has "extensive swelling of the left labia, pubic mount which tracks down into her thigh and gluteal fold. There is no clear area of abscess and the patient is in quite amount of discomfort during the examination". CT of the pelvis was reviewed and she has left labial/perineal cellulitis without evidence of abscess. Potential left perianal sinus tract. MRI using fistula protocol may be helpful to assess for potential perianal fistula. She is now placed in acute patient status for cellulitis. History - Past Medical History Cardiovascular: reports: Other (Tachycardia. Started 2009. Seen by [facility] and 24 hour holter neg. Seen by Cardiology [facility] 07/08/16 and had been taking up to 80 mg of propranolol tid prn.Iraan to be from anxiety and her imipramine. Changed to metoprolol 75 mg po bid. One week Zio patch monitor ordered. But no follwoup noted. ) Respiratory: reports: None Neuro: reports: Headaches (With referral to [facility] headache clinic on April 07, 2018. She has had several referrals but no she didn't followup. ) Endocrine/Autoimmune: reports: HyPOthyroidism, Other (Hypoglycemia,) GI: reports: None CHASER TAR: reports: None : reports: Incontinence, Frequency, Other HEENT: reports: Chronic vision loss, Chronic hearing loss Psych: reports: Depression, Anxiety, ADD/ADHD Musculoskeletal: reports: Osteoarthritis (Of the backAs well as degenerative disc disease), Fibromyalgia, Scoliosis, Chronic back pain (seen by [facility] 03/14/18 and changed to zanaflex. Neurontin max dose helped but became too emotionally numb. PT 10 session in pool in 2016 did not help. [facility] pain managment gave her spine injections in 2016 but none helped. Cymalta has caused nausea. ) Derm: reports: None MRSA Hx?: No Other Past Medical History: She has had chronic pain for more than 5 years. She has been treated by psychiatry with Savella and discontinue the Lyrica and cyclobenzaprine. She was transitioned to tizanidine in the summer 2017 but it does not work well as cyclobenzaprine. Savella was discontinued and she was discharged by the psychiatrist saying they could not treat her for pain. In the past she used Percocet but was weaned off all narcotics in 2017. Pain is primarily in the hips and low back. Spasming low back buttocks. She has tried physical therapy. Requested referral to pain clinic April. - Past Surgical History General: reports: Gastric surgery Ortho: reports: Carpal Tunnel surgery HEENT: reports: Tonsil/Adenoidectomy - Family & Social History Family History Comment/Other: Mom has hx of substance abuse and mental illness. No contract w her for over 18 years. She's ~60. Dad has hx of substance abuse, HTN. He's 63. Full Sister has hx of substance abuse, end stage COPD. Half Sister healthy as a horse. 4 kids. All healthy without CAD, HTN, DM, thyroid, but one has autism. Living arrangement: At home Living Situation: With spouse/s.o. Social History Notes: She was born around [facility]. her first in her late teens and he enlisted in the [employer] and they lived in [facility]. For a while they were in [place]. Then they returned to [place] and they have been on [facility] for 4 years. She does not like living on [facility] and looks forward to leaving the [place]. She has been a [id number] mother. 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 She smoked half a pack per day in her 20s. Started around the age of 19. Currently smokes 3 cigarettes a day. She has no history of alcohol abuse. She does daily ingestion or vague being of cannabis. She denies any use of cocaine, heroin, LSD, methamphetamines. - Substance History Use: Uses substance without health or social issues: Tobacco Abuse: Recurrent use of substance despite neg consequences: NONE Dependence: Experiences withdrawal or developed tolerances: NONE Tobacco Details: Cigarettes (3 to 6 cigarettes a day since her 20s) - POLST Patient has POLST: No POLST Status: Full Code (At this point, she would like everything done including intubation, CPR, tube feeds. If she were to have significant disease state resulting in significant cognitive dysfunction where she has severe memory loss and is 24/ 7 bed bound, let her go) Meds/Allgy - Home Medications Home Medications: Ambulatory Orders Medication Instructions Recorded Confirmed Levothyroxine [Synthroid] 100 mcg PO DAILY 02/23/14 08/31/17 Cyclobenzaprine [Flexeril] 10 mg PO TID PRN #15 tablet 05/21/15 08/31/17 hydrOXYzine PAMOATE [Vistaril] 25 mg PO BID 06/22/16 08/31/17 Loratadine [Allergy] 10 mg PO DAILY PRN 09/15/16 08/31/17 Metoprolol Tartrate 75 mg PO BID 09/15/16 08/31/17 Promethazine [Phenergan] 25 mg PO BID 09/15/16 08/31/17 Oxybutynin [Ditropan] 5 mg PO BID 08/31/17 08/31/17 Dexamethasone [Decadron] 4 mg PO DAILY #5 tablet 11/23/17 - Allergies Allergies/Adverse Reactions: Allergies Allergy/AdvReac Type Severity Reaction Status Date / Time No Known Drug Allergies Allergy Verified 04/17/18 19:50 Review of Systems - Constitutional Constitutional: reports: Fatigue, Chills, Malaise. denies: Fever, Weakness, Poor appetite, Diaphoresis - Eyes Eyes: reports: Blurred vision, Vision loss. denies: Pain, Irritation, Amaurosis , Spots in vision, Field loss, Dipolpia - Ears, Nose & Throat Ears, Nose & Throat: reports: Hearing loss, Postnasal drainage. denies: Ear pain, Hearing aids, Tinnitus, Vertigo, Nasal obstruction, Nasal congestion - Cardiovascular Cariovascular: denies: Irregular heart rate, Palpitations, Chest pain, Edema, Lightheadedness, Syncope - Respiratory Respiratory: denies: Cough, Sputum production, Wheezing, Snoring, Orthopnea, SOB at rest - Gastrointestinal Gastrointestinal: reports: Diarrhea, Nausea. denies: Abdominal pain, Abdominal distention, Constipation, Change in bowel habits, Rectal bleeding, Black stools , Bloody stools, Vomiting - Genitourinary Genitourinary: reports: Dysuria, Frequency, Urgency, Incontinence. denies: Hematuria, Flank pain, Nocturia - Musculoskeletal Musculoskeletal: reports: Muscle pain, Back pain, Muscle aches, Stiffness, Limited range of motion, Joint pain. denies: Muscle weakness, Gout - Integumentary Integumentary: reports: Pruritis, Dryness. denies: Rash, Lesions, Lumps, Acne, Pigment changes - Neurological Neurological: reports: General weakness (Sometimes uses a walker or cane. She hates using it. Has been sometimes has to help her with going to the bathroom and has to wipe her, or help her get off the toilet.). denies: Focal weakness, Numbness, Memory problems, Seizures, Incoordination, Slurred speech - Psychiatric Psychiatric: reports: Depression, Anxiety. denies: Suicidal, Delusions, Hallucinations - Endocrine Endocrine: denies: Polyuria, Polydypsia, Polyphagia - Hematologic/Lymphatic Hematologic/Lymphatic: denies: Anemia, Bruising, Petechiae Exam - Vital Signs Reviewed Vital Signs: Yes Vital Signs: Vital Signs x48h Temp Pulse Resp BP Pulse Ox 04/18/18 00:02 36.5 C 98 16 97/62 97 04/17/18 23:37 99 17 91/57 L 97 04/17/18 23:14 101 H 16 100/62 98 04/17/18 22:30 36.6 C 94 95/62 99 04/17/18 22:00 96 16 110/66 99 04/17/18 19:47 36.8 C 136 H 22 120/95 H 99 - Physical Exam General Appearance: positive: No acute distress, Alert, Other (Middle-aged female, partially edentulous, comfortable after being transferred from the emergency room and being seen in her regular room. No family at the bedside right now) Eyes Bilateral: positive: PERRL, EOMI ENT: positive: Dry mucous membranes Neck: positive: No JVD. negative: Stiff neck, Carotid bruit Respiratory: positive: Chest non-tender, No respiratory distress. negative: Wheezes, Rales, Rhonchi Cardiovascular: positive: Regular rate & rhythm, No murmur. negative: JVD present, Gallop/S4, Friction rub Peripheral Pulses: positive: 1+ Abdomen: positive: Non-tender, No organomegaly, Nml bowel sounds Skin: positive: Warm, Dry, Other (Left labia swollen and red that extends up into the pudendal area and adjacent to the intertriginous fold. Then goes toward the perineum. No discrete abscess, no discrete fluctuance.) Extremities: positive: Non-tender, Full ROM, No pedal edema Neurologic/Psychiatric: positive: Oriented x3, CN's nml (2-12), Motor nml, Depressed mood/affect (Tearful about her poor quality of life, and the stress that she sometimes under because of it) Reflexes: Bicep (R): 1+, Bicep (L): 1+, Knee (R): 1+, Knee (L): 1+, Ankle (R): 0 , Ankle (L): 0 Babinski Reflex: Right: Down, Left: Down Conclusion/Plan - Problem List (1) Cellulitis of female genitalia Conclusion/Plan: No antecedent trauma. No foreign body insertion. No history of diabetes. Previous history of Bartholin's gland infection in her [address]. CT of pelvis does not show discrete abscess nor is there evidence of necrotizing fasciitis Plan: Inpatient admission with acute care stay of greater than 2 midnights planned Unasyn and Flagyl day #1 Adjust antibiotics on the basis of blood cultures I have called Dr. Veronica, gynecologic on-call, for opinion. I asked to be good to see her in the morning. Pain management with Tylenol, p.o. oxycodone. (2) Electrolyte disorder Conclusion/Plan: With hypokalemia and hyponatremia. I suspect dehydration. Plan: IV fluids were 0.9 normal saline used for a total of 2 L Oral supplementation with potassium every 4 hours for total of 3 doses BMP in a.m. (3) Pain syndrome, chronic Conclusion/Plan: She has been recently referred to [facility] pain clinic. She also has chronic migraine headaches. While she is not in a pain contract, specialty evaluations with psychiatry in the past as well as a recent note in her primary care provider office, indicate that opioids are to be used very sparingly. She has been successfully weaned off opioids since last year. Plan Tylenol for mild pain, oxycodone for moderate pain, and no IV pain medicine at this time. (4) Sinus tachycardia Conclusion/Plan: Chronic. An ongoing problem for her. Has now been seen by cardiology in [place] and cardiology at [facility]. Resume a Toprol 75 mg p.o. twice daily. (5) Microcytic anemia Conclusion/Plan: She had anemia in 2013, the 2016 and 2017 showed normal MCV and normal hemoglobin and hematocrit. On review of systems there is no dyspepsia, bloody stool. This patient has had gastric bypass surgery so she would be at risk for malabsorption. The anemia is microcytic. Plan: Anemia panel looking for iron deficiency and B12 deficiency as well as hemolysis. - Lab Results Fish Bones: 04/17/18 21:15 04/17/18 21:15 - Diagnostic Imaging Results Diagnostic Imaging Results: positive: Final report reviewed Diagnostic Imaging Results Comments: CT Pelvis W: IMPRESSION: 1. Left labial/perineum cellulitis without evidence of abscess. 2. Potential left perianal sinus tract. MRI utilizing fistula protocol may be helpful to assess for potential perianal fistula. Core Measures - Anticipated LOS I expect patient to be DC'd or transferred within 96 hours.: Yes - DVT/VTE - Prophylaxis VTE/DVT Device ordered at admit?: Yes
[2018-04-18] MEDS: SODIUM CHLORIDE 0.9% 1,000 ML IV SCH ×2 (01:00→08:05)
[2018-04-18] MEDS: METOPROLOL SUCCINATE 50 MG TABLET PO SCH ×2 (01:20→09:08)
[2018-04-18] MEDS: SODIUM CHLORIDE FLUSH 0.9% 10 ML SYRINGE IVP SCH ×4 (01:21→23:49)
[2018-04-18] MEDS: ONDANSETRON 4 MG/2 ML VIAL IVP PRN ×2 (01:21→08:05)
[2018-04-18] MEDS: POTASSIUM CHLORIDE 20 MEQ TABLET PO SCH ×4 (01:21→13:37)
[2018-04-18] MEDS: oxyCODONE 5 MG TABLET PO PRN ×5 (02:38→20:39)
[2018-04-18] MEDS: AMPICILLIN/SULBACTAM 3 GM in SODIUM CHLORIDE 0.9% MINIBAG 100 ML IV SCH ×4 (02:53→22:14)
[2018-04-18] MEDS: metroNIDAZOLE 500 MG/100 ML 500 MG/100 ML BAG IV SCH ×3 (03:45→18:41)
[2018-04-18 06:13] LABS: BASOPHILS % (AUTO) 0.3 %; EOSINOPHILS # (AUTO) 0.3 10^3/uL (0.0-0.7); HGB - HEMOGLOBIN 10.7 g/dL (12.0-16.0); LYMPHOCYTES % (AUTO) 14.6 %; MEAN CORPUSCULAR HEMOGLOBIN 24.7 pg (27.0-31.0); MEAN CORPUSCULAR HGB CONC 33.2 g/dL (32.0-36.0); MEAN CORPUSCULAR VOLUME 74.2 fL (81.0-99.0); MEAN PLATELET VOLUME 9.5 fL (7.9-10.8); MONOCYTES # (AUTO) 0.9 10^3/uL (0.0-1.0); MONOCYTES % (AUTO) 6.9 %; NEUTROPHILS # (AUTO) 10.4 10^3/uL (1.5-6.6); NEUTROPHILS % (AUTO) 76.2 %; PLT - PLATELET COUNT 224 10^3/uL (130-450); RED BLOOD COUNT 4.36 10^6/uL (4.20-5.40); RED CELL DISTRIBUTION WIDTH 16.1 % (12.0-15.0); WHITE BLOOD COUNT 13.7 x10^3/uL (4.8-10.8)
[2018-04-18 06:18] LABS: MEAN RETIC VALUE 99.9; RED BLOOD COUNT 4.37 10^6/uL (4.20-5.40)
[2018-04-18 06:27] LABS: CALCIUM 8.4 mg/dL (8.5-10.3); CREATININE 0.9 mg/dL (0.4-1.0)
[2018-04-18 06:49] LABS: % IRON SATURATION 6 % (20-50); IRON 22 ug/dL (28-170); TOTAL IRON BINDING CAPACITY 374 ug/dL (250-450); TRANSFERRIN 267 mg/dL (192-382)
[2018-04-18] MEDS: ACETAMINOPHEN 325 MG TABLET PO PRN ×3 (07:56→16:55)
[2018-04-18] MEDS: POLYETHYLENE GLYCOL 3350 17 GM PACKET PO SCH (09:08)
[2018-04-18] MEDS: ENOXAPARIN 40 MG/0.4 ML SYRINGE SUBQ SCH (09:08)
[2018-04-18] MEDS: SODIUM CHLORIDE FLUSH 0.9% 10 ML SYRINGE IVP PRN (09:15)
[2018-04-18] MEDS ORDERED: GADOBUTROL 15 MMOL/15 ML VIAL ONE (11:25)
[2018-04-18] MEDS ORDERED: GADOBUTROL 15 MMOL/15 ML VIAL IVP ONE (12:09)
--- NOTE | 2018-04-18 13:48 | MRI Report ---
Procedure Date: 04/18/2018 Accession Number: [id number] / [id number] Procedure: MRI - Pelvis W/WO CPT Code: FULL RESULT: EXAM: MR PELVIS WITH AND WITHOUT CONTRAST- FISTULOGRAPHY EXAM DATE: 04/18/2018 11:34 AM. CLINICAL HISTORY: Pelvic fistula. COMPARISON: Pelvis with 04/17/2018. TECHNIQUE: Multiplanar breath-hold T1, T2, and DWI sequences obtained through the pelvis on an MR scanner. High-resolution images obtained through the anorectal region and pelvic floor. Images obtained before and after administration of 10 mL Gadavist intravenous contrast. FINDINGS: The [id number] does not include the anal verge, measurements of location may not be perfectly precise in terms of distance to anal verge. The left perianal space demonstrates phlegmonous changes extending past the puborectalis musculature with formation of 3 abscesses inferiorly measuring 2.8 x 1.0, 1.9 x 1.2, and 1.1 x 2.7 cm along the fistula tract. The anal mucosa appears intact with the exception of questionable disruption at the 1 o'clock position approximately 2.5 cm above the anal verge. There appears to be involvement of the vaginal wall at the 5 o'clock position respective to the vagina at the same level. The uterus appears within normal limits as do remaining pelvic structures. IMPRESSION: Trans-sphincteric left perianal space fistula suspected to communicate with the 5 o'clock position of the vagina (1 o'clock position in relation to the anus, 2.5 cm above the anal verge where the origin is suspected ) with formation of 3 discrete abscesses along the tract with a width of up to 1.2 cm and a length of up to 2.8 cm. RADIA
[2018-04-18] MEDS ORDERED: PROMETHAZINE 25 MG TABLET PO PRN (16:38)
--- NOTE | 2018-04-18 16:44 | HISTORY & PHYSICAL EXAMINATION ---
DATE OF SERVICE: 04/18/2018 Physician: Konstantin Veronica MD PRIMARY: TAMRA Simpson. DIAGNOSES 1. Left labial, perineal and buttock cellulitis w associated pain. 2. Bouts of supraventricular tachycardia. 3. Hypothyroidism. 4. Hypoglycemic Episodes. 5. Chronic headaches. 6. Urinary incontinence, mostly stress. 7. Depression and anxiety. 8. Osteoarthritis. 9. Fibromyalgia and chronic pain. REASON FOR CONSULTATION: Dr. Toscano requests investigation of perineal cellulitis and treat. HISTORY OF PRESENT ILLNESS: Patient is a 42-year-old , 4, para 4-0-0-4 woman who reports severe left labial pain and perineal pain that she believes is a Bartholin's gland abscess. The left labial pain began on 06/2018 and gradually increased until the labia and perineum portions of the buttock had swollen. She denies fevers, but does report chills. She has no STD history or suspicion of exposure. 18 years ago, she had a similar bout that began and blossomed into a left Bartholin's gland abscess. The current pain differs in that it radiates into the rectum. She presented to the emergency room with obvious labial/perineal cellulitis tracking down into the interior of the thigh and gluteal fold. She was not found to be septic with normal lactic acid levels, though she had hyponatremia 133 with hypokalemia of 2.6. Her white count was remarkably elevated at 20.4. Patient denies current discharge. CT scan was ordered and will be discussed later in the H and P. Patient is currently on Unasyn and Flagyl. PAST MEDICAL HISTORY: Patient has tachycardia and is followed by Cardiology at [facility]. She was placed on propranolol 80 mg t.i.d. The tachycardia was triggered by anxiety and imipramine. Her Current beta aryan is metoprolol 75 mg b.i.d. Patient has chronic headaches and is seen at the [facility]. She has not made her appointment and has missed several prior. She reports frequency and stress incontinence without dysuria or hematuria. Patient reports osteoarthritis secondary probably to scoliosis and morbid obesity. She has been evaluated by [facility]. She has also seen the [facility] and received paraspinal injections in 2016. Patient denies Crohn's or ulcerative colitis history. She denies history of MRSA. PAST SURGICAL HISTORY 1. Gastric bypass surgery at [facility]. 2. Carpal tunnel surgery. 3. Tonsillectomy, adenoidectomy, and for nasal cauterization. FAMILY HISTORY: Mother - substance abuse, mental illness. Father - substance abuse; hypertension. Sister - substance abuse and end-stage COPD. Children all healthy. SOCIAL HISTORY: Lives with . First enlisted [employer], has and been in [employer] for 4 years. [id number] mom. Smokes half a pack of cigarettes a day for 20 years. Denies alcohol use. Does use marijuana derivative for self- medicating pain. ALLERGIES 1. SEASONAL RHINITIS. 2. NO KNOWN DRUG ALLERGIES. MEDICATIONS 1. Synthroid 100 mcg daily. 2. Flexeril 10 mg t.i.d. 3. Vistaril 25 mg b.i.d. 4. Loratadine 10 mg daily. 5. Metoprolol 75 mg b.i.d. 6. Promethazine 25 mg b.i.d. 7. Ditropan 5 mg b.i.d. 8. Dexamethasone 4 mg daily. REVIEW OF SYSTEMS CONSTITUTIONAL: Chills, night sweats as noted before, otherwise negative. HEENT: Postnasal drip. Seasonal rhinitis symptoms negative. CARDIOVASCULAR: No palpitations, chest pain. RESPIRATORY: No cough, sputum, wheezing, or snoring. GASTROINTESTINAL: Negative abdominal pain, constipation, or rectal bleeding, pain or hematochezia. UROGENITAL: Negative except for stress incontinence. MUSCULOSKELETAL: Back pain, back spasms. SKIN: Negative. NEUROLOGIC: General weakness. PSYCHIATRY: As noted before. PHYSICAL EXAMINATION GENERAL: Morbidly obese, Lying on her side in bed, comfortable. VITAL SIGNS: Temp 36.5, pulse 98, respirations 16, blood pressure 110/66. HEENT: Supple neck, no thyromegaly. LUNGS: Clear, but distant. CARDIAC: Regular. No murmur, no gallop. No JVD. ABDOMEN: Morbidly obese with large pannus. No tenderness. No organomegaly. BREASTS: Deferred. SKIN: Overall warm, dry. EXTREMITIES: Moves all 4 extremities well. No pedal edema or calf tenderness. NEUROLOGIC: Alert, oriented. Cranial nerves grossly intact. GENITOURINARY: Mild inguinal lymphadenopathy on the left. Labia is swollen, red, very tender to touch, which extends down into the buttock and towards the groin fold. The tenderness precludes pelvic exam. No obvious bleeding or pus. ASSESSMENT: Patient has obvious left labial perineal and buttock cellulitis. The origin is not completely clear. CT scan finds no abscess, but exhibits rstranding towards the rectum and changes in the subcutaneous and fat tissue. Radiology suspects possibile perirectal abscess. Discussed and reviewed the CT scan with Radiology and MRI is recommended to determine if there is perirectal and rectal involvement. PLAN: Treatment depends on origin of the infection. The origin is not a Bartholin gland abscess, but there may be an underlying perirectal infective process. In case a perirectal abscess, General Surgery should be called to render an opinion. At the current time, there is no abscess to drain, and the patient is on appropriate IV antibiotics. MRI with and without contrast of the pelvis was ordered for this afternoon. Addendum: MRI revealed perirectal abscesses it is uncertain if there is communication with the rectum itself. There may be vaginal involvement. Discussed case with hospitalist and they will call general surgeon on-call for evaluation and opinion. TD: 04/18/2018 12:58 [id number]
--- NOTE | 2018-04-18 18:15 | PROVIDER PROGRESS NOTE ---
Assessment/Plan - Problem List (1) Cellulitis of female genitalia Assessment/Plan: Dr Veronica did OBGYN consult and I&D was planned but first repeat imaging was done. This showed 3 carine-rectal abscess and he advised General Surgery for mangement. Continue antibioticas and pain meds. Gen. Surgery consult requested. Pt may eat today. I updated Pt with these plans. (2) Perirectal abscess Assessment/Plan: General surgery consult ordered and I called, left message. Continue iv antibiotics and pain meds. Liquid diet ordered and a colon prep may be needed pre-op. (3) Dehydration Assessment/Plan: Hyponatremia and Hypokalemia need replacement with iv fluids. Monitor daily BMP, WBC. (4) Electrolyte disorder Assessment/Plan: Replace low Na and K. Monitor daily labs. - Current Meds Current Meds: Current Medications Generic Name Dose Route Start Last Admin Trade Name Freq PRN Reason Stop Dose Admin Acetaminophen 650 mg 04/18/18 00:07 04/18/18 16:55 Tylenol PO 650 mg Q4HR PRN Administration Pain 1 to 4 Enoxaparin Sodium 40 mg 04/18/18 09:00 04/18/18 09:08 Lovenox SUBQ Not Given DAILY JUAN DIEGO Metronidazole 500 mg in 100 mls @ 100 mls/hr 04/18/18 03:00 04/18/18 13:44 Flagyl 500 Mg/100 Ml IV Infused Q8H JUAN DIEGO Infusion Sodium Chloride 1,000 mls @ 100 mls/hr 04/18/18 01:00 04/18/18 15:33 Normal Saline 0.9% IV 04/18/18 20:59 100 mls/hr .Q10H JUAN DIEGO Infusion Ondansetron HCl 4 mg 04/18/18 00:07 04/18/18 08:05 Zofran Inj IVP 4 mg Q6HR PRN Administration Nausea / Vomiting Oxycodone HCl 5 mg 04/18/18 00:07 04/18/18 16:55 Roxicodone PO 5 mg Q4HR PRN Administration Pain 5 to 7 Polyethylene Glycol 17 gm 04/18/18 09:00 04/18/18 09:08 Miralax PO Not Given DAILY JUAN DIEGO Sodium Chloride 10 ml 04/18/18 00:07 04/18/18 09:15 Normal Saline Flush 0.9% IVP 10 ml PRN PRN Administration NEEDED PER PROVIDER ORDERS Sodium Chloride 10 ml 04/18/18 01:00 04/18/18 08:40 Normal Saline Flush 0.9% IVP Not Given 0100,0900,1700 JUAN DIEGO - Lab Result Fish Bone Diagrams: 04/18/18 05:53 04/18/18 05:53 - Additional Planning My Orders: My Active Orders 04/18/18 Consult [General Surgery Consult] [CONS] Routine 04/18/18 16:38 Promethazine [Phenergan] 25 mg PO TID PRN 04/18/18 21:00 Cyclobenzaprine [Flexeril] 10 mg PO BID Metoprolol Tartrate [Lopressor] 100 mg PO QPM Oxybutynin [Ditropan] 5 mg PO BID 04/18/18 Dinner DIET [Full Liquid Diet] [DIET] 04/19/18 07:00 Levothyroxine [Synthroid] 100 mcg PO QDAC 04/19/18 09:00 Metoprolol Tartrate [Lopressor] 75 mg PO DAILY Varenicline Tartrate [Chantix] 1 mg PO DAILY Subjective - Subjective Patient Reports: Pain Objective Vital Signs: Vital Signs - 24 hr 04/18/18 04/18/18 04/18/18 00:40 02:25 06:02 Temperature 36.4 C L Heart Rate [ 92 78 76 Brachial] Respiratory 16 Rate Blood Pressure [Left Brachial artery] Blood Pressure 119/62 86/52 L 98/50 L [Right Brachial artery] O2 Saturation 98 04/18/18 04/18/18 08:00 15:26 Temperature 36.8 C 36.8 C Heart Rate [ 77 72 Brachial] Respiratory 18 18 Rate Blood Pressure 90/31 L [Left Brachial artery] Blood Pressure 114/53 L [Right Brachial artery] O2 Saturation 100 100 Oxygen O2 Source Room air I&O (Last 24 Hrs): Intake and Output Totals x24h 04/16/18 04/17/18 04/18/18 23:59 23:59 23:59 Intake Total 2590.000 Balance 2590.000 General: Alert, Oriented x3 HEENT: Other (Mucosa dry, edentulous) Neck: Supple Neuro: Non Focal Cardiovascular: Regular rate, No murmurs Respiratory: No respiratory distress, Breath sounds nml Abdomen: Normal bowel sounds, Soft Rectal: Other (Deferred to OBGYN talent development consultant) Extremities: No edema - Results Results: Laboratory Results WBC 13.7 x10^3/uL (4.8-10.8) H 04/18/18 05:53 RBC 4.37 10^6/uL (4.20-5.40) 04/18/18 05:53 Hgb 10.7 g/dL (12.0-16.0) L 04/18/18 05:53 Hct 32.3 % (37.0-47.0) L 04/18/18 05:53 MCV 74.2 fL (81.0-99.0) L 04/18/18 05:53 MCH 24.7 pg (27.0-31.0) L 04/18/18 05:53 MCHC 33.2 g/dL (32.0-36.0) 04/18/18 05:53 RDW 16.1 % (12.0-15.0) H 04/18/18 05:53 Plt Count 224 10^3/uL (130-450) 04/18/18 05:53 MPV 9.5 fL (7.9-10.8) 04/18/18 05:53 Reticulocyte % (Auto) 2.40 % (0.5-2.3) H 04/18/18 05:53 Neut # (Auto) 10.4 10^3/uL (1.5-6.6) H 04/18/18 05:53 Lymph # (Auto) 2.0 10^3/uL (1.5-3.5) 04/18/18 05:53 [place] # (Auto) 0.9 10^3/uL (0.0-1.0) 04/18/18 05:53 Eos # (Auto) 0.3 10^3/uL (0.0-0.7) 04/18/18 05:53 Baso # (Auto) 0.0 10^3/uL (0.0-0.1) 04/18/18 05:53 Absolute Nucleated RBC 0.01 x10^3/uL 04/18/18 05:53 Total Counted 100 04/17/18 21:15 Band Neuts % (Manual) 10 % (0-10) 04/17/18 21:15 Abnorm Lymph % (Manual) 0 % 04/17/18 21:15 Nucleated RBC % 0.1 /100WBC 04/18/18 05:53 Neutrophils # (Manual) 17.5 10^3/uL (1.5-6.6) H 04/17/18 21:15 Lymphocytes # (Manual) 2.4 10^3/uL (1.5-3.5) 04/17/18 21:15 Monocytes # (Manual) 0.2 10^3/uL (0.0-1.0) 04/17/18 21:15 Eosinophils # (Manual) 0.2 10^3/uL (0-0.7) 04/17/18 21:15 Basophils # (Manual) 0.0 10^3/uL (0-0.1) 04/17/18 21:15 Differential Comment MANUAL DIFFERENTIAL 04/17/18 21:15 Manual Slide Review Indicated 04/17/18 21:15 WBC Morphology NORMAL APPEARANCE (NORMAL) 04/17/18 21:15 Platelet Estimate NORMAL (130-450,000) (NORMAL) 04/17/18 21:15 Platelet Morphology NORMAL APPEARANCE (NORMAL) 04/17/18 21:15 RBC Morph Micro Appear NORMAL APPEARANCE (NORMAL) 04/17/18 21:15 Absolute Retic 0.105 10^6/uL (0.020-0.110) 04/18/18 05:53 Sodium 133 mmol/L (135-145) L 04/18/18 05:53 Potassium 2.9 mmol/L (3.5-5.0) L 04/18/18 05:53 Chloride 100 mmol/L (101-111) L 04/18/18 05:53 Carbon Dioxide 26 mmol/L (21-32) 04/18/18 05:53 Anion Gap 7.0 (6-13) 04/18/18 05:53 BUN 12 mg/dL (6-20) 04/18/18 05:53 Creatinine 0.9 mg/dL (0.4-1.0) 04/18/18 05:53 Estimated GFR (MDRD) 69 (>89) L 04/18/18 05:53 Glucose 105 mg/dL (70-100) H 04/18/18 05:53 Lactic Acid 1.0 mmol/L (0.5-2.2) 08/13/18 21:15 Calcium 8.4 mg/dL (8.5-10.3) L 04/18/18 05:53 Magnesium 1.8 mg/dL (1.7-2.8) 04/17/18 21:15 Iron 22 ug/dL (28-170) L 04/18/18 05:53 TIBC 374 ug/dL (250-450) 04/18/18 05:53 % Saturation 6 % (20-50) L 04/18/18 05:53 Transferrin 267 mg/dL (192-382) 04/18/18 05:53 Ferritin 22.8 ng/mL (11.0-306.8) 04/18/18 05:53 Total Bilirubin 1.0 mg/dL (0.2-1.0) 04/17/18 21:15 AST 15 IU/L (10-42) 04/17/18 21:15 ALT 13 IU/L (10-60) 04/17/18 21:15 Alkaline Phosphatase 92 IU/L (42-121) 04/17/18 21:15 Lactate Dehydrogenase 107 IU/L (91-225) 04/18/18 05:53 Total Protein 7.4 g/dL (6.7-8.2) 04/17/18 21:15 Albumin 3.3 g/dL (3.2-5.5) 04/17/18 21:15 Globulin 4.1 g/dL (2.1-4.2) 04/17/18 21:15 Albumin/Globulin Ratio 0.8 (1.0-2.2) L 04/17/18 21:15 Lipase 23 U/L (22-51) 04/17/18 21:15 Vitamin B12 206 pg/mL (180-914) 04/18/18 05:53 Serum HCG, Qual NEGATIVE 04/17/18 21:15 Urine Color YELLOW 04/17/18 23:05 Urine Clarity CLEAR (CLEAR) 04/17/18 23:05 Urine pH 5.5 PH (5.0-7.5) 04/17/18 23:05 Ur Specific [place] 1.015 (1.002-1.030) 04/17/18 23:05 Urine Protein NEGATIVE mg/dL (NEGATIVE) 04/17/18 23:05 Urine Glucose (UA) NEGATIVE mg/dL (NEGATIVE) 04/17/18 23:05 Urine Ketones TRACE mg/dL (NEGATIVE) 04/17/18 23:05 Urine Occult Blood NEGATIVE (NEGATIVE) 04/17/18 23:05 Urine Nitrite POSITIVE (NEGATIVE) H 04/17/18 23:05 Urine Bilirubin NEGATIVE (NEGATIVE) 04/17/18 23:05 Urine Urobilinogen 1 (NORMAL) E.U./dL (NORMAL) 04/17/18 23:05 Ur Leukocyte Esterase NEGATIVE (NEGATIVE) 04/17/18 23:05 Urine RBC None Seen /HPF (0-5) 04/17/18 23:05 Urine WBC 0-3 /HPF (0-5) 04/17/18 23:05 Ur Squamous Epith Cells MOD Squamous (<= Few) H 04/17/18 23:05 Urine Bacteria Many /HPF (None Seen) H 04/17/18 23:05 Ur Microscopic Review INDICATED 04/17/18 23:05 Urine Culture Comments NOT INDICATED 04/17/18 23:05
[2018-04-18] MEDS: OXYBUTYNIN 5MG TABLET PO SCH (20:39)
[2018-04-18] MEDS: CYCLOBENZAPRINE 10 MG TABLET PO SCH (20:39)
[2018-04-18] MEDS ORDERED: METOPROLOL TARTRATE 50 MG TABLET PO SCH (21:00)
[2018-04-19] MEDS: SODIUM CHLORIDE FLUSH 0.9% 10 ML SYRINGE IVP PRN (03:05)
[2018-04-19] MEDS: metroNIDAZOLE 500 MG/100 ML 500 MG/100 ML BAG IV SCH ×3 (03:06→19:16)
[2018-04-19] MEDS: oxyCODONE 5 MG TABLET PO PRN ×3 (03:07→13:27)
[2018-04-19] MEDS: AMPICILLIN/SULBACTAM 3 GM in SODIUM CHLORIDE 0.9% MINIBAG 100 ML IV SCH ×4 (04:30→21:29)
[2018-04-19 05:39] LABS: BASOPHILS # (AUTO) 0.1 10^3/uL (0.0-0.1); BASOPHILS % (AUTO) 0.7 %; EOSINOPHILS # (AUTO) 0.4 10^3/uL (0.0-0.7); EOSINOPHILS % (AUTO) 3.1 %; HGB - HEMOGLOBIN 10.4 g/dL (12.0-16.0); LYMPHOCYTES # (AUTO) 1.7 10^3/uL (1.5-3.5); LYMPHOCYTES % (AUTO) 14.7 %; MEAN CORPUSCULAR HEMOGLOBIN 24.7 pg (27.0-31.0); MEAN CORPUSCULAR HGB CONC 31.7 g/dL (32.0-36.0); MEAN CORPUSCULAR VOLUME 78.1 fL (81.0-99.0); MEAN PLATELET VOLUME 9.8 fL (7.9-10.8); MONOCYTES # (AUTO) 0.8 10^3/uL (0.0-1.0); MONOCYTES % (AUTO) 6.9 %; NEUTROPHILS # (AUTO) 8.7 10^3/uL (1.5-6.6); NEUTROPHILS % (AUTO) 74.6 %; PLT - PLATELET COUNT 230 10^3/uL (130-450); RED BLOOD COUNT 4.22 10^6/uL (4.20-5.40); WHITE BLOOD COUNT 11.7 x10^3/uL (4.8-10.8)
[2018-04-19 05:44] LABS: CALCIUM 8.3 mg/dL (8.5-10.3); CREATININE 0.9 mg/dL (0.4-1.0)
[2018-04-19] MEDS: LEVOTHYROXINE 100 MCG TABLET PO SCH (06:24)
--- NOTE | 2018-04-19 08:11 | PROVIDER PROGRESS NOTE ---
Assessment/Plan - Problem List (1) TIA (transient ischemic attack) Assessment/Plan: Symptoms at 0320 are concerning for a poss TIA. (2) Cellulitis of female genitalia Assessment/Plan: OBGYN consult appreciated. Continue iv antibiotics. (3) Perirectal abscess Assessment/Plan: Pt seen by general surgeon, who stated that he wpu;d not be able to reach all the 3 abscess to son them, that she needs surgery and ONION TOPPER procedure combined, at a higher level of care hospital. I will reach out to other facilities to have her accepted for transfer. (4) Dehydration Assessment/Plan: Continue iv fluids. (5) Electrolyte disorder Assessment/Plan: Continue replacement and monitor labs daily. (6) Hypotension Assessment/Plan: Pt was on a high dose of immediate release Mteoprolol 75 mg in am and 100 mg in pm, which was ordered to continue here when meds reconciled. But Pt admitted to her RN that she only took it haphazardly and it was prescribed for tachycardia, not for HTN. Will stop Metoprolol Tartrtae 75 mg every am and 100 mg ecery pm. Will start long acting Metoprolol Succinate at a lower am dose, starting tomorrow, with HOLD parameters. The patient does not appear to be in septic shock, despite her infection, with improving WBC and skin warm and dry. Will continue iv fluid hydration. Consider an EKG, Echo regarding LVEF if the BP remains low despite iv fluids and med adjustments as above. - Current Meds Current Meds: Current Medications Generic Name Dose Route Start Last Admin Trade Name Freq PRN Reason Stop Dose Admin Acetaminophen 650 mg 04/18/18 00:07 04/18/18 16:55 Tylenol PO 650 mg Q4HR PRN Administration Pain 1 to 4 Cyclobenzaprine HCl 10 mg 04/18/18 21:00 04/18/18 20:39 Flexeril PO 10 mg BID JUAN DIEGO Administration Enoxaparin Sodium 40 mg 04/18/18 09:00 04/18/18 09:08 Lovenox SUBQ Not Given DAILY JUAN DIEGO Metronidazole 500 mg in 100 mls @ 100 mls/hr 04/18/18 03:00 04/19/18 04:06 Flagyl 500 Mg/100 Ml IV Infused Q8H JUAN DIEGO Infusion Ampicillin Sodium/Sulbactam 100 mls @ 200 mls/hr 04/18/18 22:00 04/19/18 05: 29 Sodium 3 gm/ Sodium Chloride IV Infused Q6H JUAN DIEGO Infusion Levothyroxine Sodium 100 mcg 04/19/18 07:00 04/19/18 06:24 Synthroid PO 100 mcg QDAC JUAN DIEGO Administration Metoprolol Tartrate 100 mg 04/18/18 21:00 04/18/18 20:39 Lopressor PO 100 mg QPM JUAN DIEGO Administration Ondansetron HCl 4 mg 04/18/18 00:07 04/18/18 08:05 Zofran Inj IVP 4 mg Q6HR PRN Administration Nausea / Vomiting Oxybutynin Chloride 5 mg 04/18/18 21:00 04/18/18 20:39 Ditropan PO 5 mg BID JUAN DIEGO Administration Oxycodone HCl 5 mg 04/18/18 00:07 04/19/18 03:07 Roxicodone PO 5 mg Q4HR PRN Administration Pain 5 to 7 Polyethylene Glycol 17 gm 04/18/18 09:00 04/18/18 09:08 Miralax PO Not Given DAILY JUAN DIEGO Sodium Chloride 10 ml 04/18/18 00:07 04/19/18 03:05 Normal Saline Flush 0.9% IVP 10 ml PRN PRN Administration NEEDED PER PROVIDER ORDERS Sodium Chloride 10 ml 04/18/18 01:00 04/18/18 23:49 Normal Saline Flush 0.9% IVP 10 ml 0100,0900,1700 JUAN DIEGO Administration - Lab Result Fish Bone Diagrams: 04/19/18 05:20 04/19/18 05:20 - Additional Planning My Orders: My Active Orders 04/18/18 16:38 Promethazine [Phenergan] 25 mg PO TID PRN 04/18/18 21:00 Cyclobenzaprine [Flexeril] 10 mg PO BID Metoprolol Tartrate [Lopressor] 100 mg PO QPM Oxybutynin [Ditropan] 5 mg PO BID 04/18/18 Dinner DIET [Full Liquid Diet] [DIET] 04/19/18 07:00 Levothyroxine [Synthroid] 100 mcg PO QDAC 04/19/18 08:06 Telemetry- [RC] Q4HR 04/19/18 09:00 Metoprolol Tartrate [Lopressor] 75 mg PO DAILY Varenicline Tartrate [Chantix] 1 mg PO DAILY 04/20/18 05:00 CBC - COMP BLD CT W/AUTO DIFF [HEME] DAILYLAB 04/21/18 05:00 CBC - COMP BLD CT W/AUTO DIFF [HEME] DAILYLAB 04/22/18 05:00 CBC - COMP BLD CT W/AUTO DIFF [HEME] DAILYLAB Subjective - Subjective Patient Reports: Other (The abscess started to drain. her pain is better.) Nursing Reports: Other (Pt had approx. 30 min of L facial numbness and droop overnight. A TIA workup was ordered this am.) Objective Vital Signs: Vital Signs - 24 hr 04/18/18 04/18/18 04/18/18 15:26 20:39 23:49 Temperature 36.8 C 37.3 C Heart Rate [ 72 73 Brachial] Respiratory 18 20 Rate Blood Pressure 124/64 Blood Pressure 90/31 L [Left Brachial artery] Blood Pressure 92/51 L [Right Brachial artery] O2 Saturation 100 99 04/19/18 04/19/18 04/19/18 03:20 03:31 03:42 Temperature Heart Rate [ 89 88 84 Brachial] Respiratory 18 Rate Blood Pressure Blood Pressure [Left Brachial artery] Blood Pressure 118/46 L 122/71 118/62 [Right Brachial artery] O2 Saturation 04/19/18 07:32 Temperature 37.1 C Heart Rate [ 78 Brachial] Respiratory 18 Rate Blood Pressure Blood Pressure 101/43 L [Left Brachial artery] Blood Pressure [Right Brachial artery] O2 Saturation 99 Oxygen O2 Source Room air I&O (Last 24 Hrs): Intake and Output Totals x24h 04/17/18 04/18/18 04/19/18 23:59 23:59 23:59 Intake Total 3696.667 600 Balance 3696.667 600 General: Alert, Oriented x3, No acute distress HEENT: Mucous membr. moist/pink Neck: Supple, No JVD Neuro: Non Focal Cardiovascular: Regular rate, No murmurs Respiratory: No respiratory distress Abdomen: Soft, No tenderness, Other (Obese with pannus.) Rectal: Other (Defferred to general surgeon.) Extremities: No edema - Results Results: Laboratory Results WBC 11.7 x10^3/uL (4.8-10.8) H 04/19/18 05:20 RBC 4.22 10^6/uL (4.20-5.40) 04/19/18 05:20 Hgb 10.4 g/dL (12.0-16.0) L 04/19/18 05:20 Hct 33.0 % (37.0-47.0) L 04/19/18 05:20 MCV 78.1 fL (81.0-99.0) L 04/19/18 05:20 MCH 24.7 pg (27.0-31.0) L 04/19/18 05:20 MCHC 31.7 g/dL (32.0-36.0) L 04/19/18 05:20 RDW 17.0 % (12.0-15.0) H 04/19/18 05:20 Plt Count 230 10^3/uL (130-450) 04/19/18 05:20 MPV 9.8 fL (7.9-10.8) 04/19/18 05:20 Reticulocyte % (Auto) 2.40 % (0.5-2.3) H 04/18/18 05:53 Neut # (Auto) 8.7 10^3/uL (1.5-6.6) H 04/19/18 05:20 Lymph # (Auto) 1.7 10^3/uL (1.5-3.5) 04/19/18 05:20 [place] # (Auto) 0.8 10^3/uL (0.0-1.0) 04/19/18 05:20 Eos # (Auto) 0.4 10^3/uL (0.0-0.7) 04/19/18 05:20 Baso # (Auto) 0.1 10^3/uL (0.0-0.1) 04/19/18 05:20 Absolute Nucleated RBC 0.00 x10^3/uL 04/19/18 05:20 Total Counted 100 04/17/18 21:15 Band Neuts % (Manual) 10 % (0-10) 04/17/18 21:15 Abnorm Lymph % (Manual) 0 % 04/17/18 21:15 Nucleated RBC % 0.0 /100WBC 04/19/18 05:20 Neutrophils # (Manual) 17.5 10^3/uL (1.5-6.6) H 04/17/18 21:15 Lymphocytes # (Manual) 2.4 10^3/uL (1.5-3.5) 04/17/18 21:15 Monocytes # (Manual) 0.2 10^3/uL (0.0-1.0) 04/17/18 21:15 Eosinophils # (Manual) 0.2 10^3/uL (0-0.7) 04/17/18 21:15 Basophils # (Manual) 0.0 10^3/uL (0-0.1) 04/17/18 21:15 Differential Comment MANUAL DIFFERENTIAL 04/17/18 21:15 Manual Slide Review Indicated 04/17/18 21:15 WBC Morphology NORMAL APPEARANCE (NORMAL) 04/17/18 21:15 Platelet Estimate NORMAL (130-450,000) (NORMAL) 04/17/18 21:15 Platelet Morphology NORMAL APPEARANCE (NORMAL) 04/17/18 21:15 RBC Morph Micro Appear NORMAL APPEARANCE (NORMAL) 04/17/18 21:15 Absolute Retic 0.105 10^6/uL (0.020-0.110) 04/18/18 05:53 Sodium 137 mmol/L (135-145) 04/19/18 05:20 Potassium 3.6 mmol/L (3.5-5.0) 04/19/18 05:20 Chloride 106 mmol/L (101-111) 04/19/18 05:20 Carbon Dioxide 24 mmol/L (21-32) 04/19/18 05:20 Anion Gap 7.0 (6-13) 04/19/18 05:20 BUN 9 mg/dL (6-20) 04/19/18 05:20 Creatinine 0.9 mg/dL (0.4-1.0) 04/19/18 05:20 Estimated GFR (MDRD) 69 (>89) L 04/19/18 05:20 Glucose 90 mg/dL (70-100) 04/19/18 05:20 Lactic Acid 1.0 mmol/L (0.5-2.2) 04/17/18 21:15 Calcium 8.3 mg/dL (8.5-10.3) L 04/19/18 05:20 Magnesium 1.8 mg/dL (1.7-2.8) 04/17/18 21:15 Iron 22 ug/dL (28-170) L 04/18/18 05:53 TIBC 374 ug/dL (250-450) 04/18/18 05:53 % Saturation 6 % (20-50) L 04/18/18 05:53 Transferrin 267 mg/dL (192-382) 04/18/18 05:53 Ferritin 22.8 ng/mL (11.0-306.8) 04/18/18 05:53 Total Bilirubin 1.0 mg/dL (0.2-1.0) 04/17/18 21:15 AST 15 IU/L (10-42) 04/17/18 21:15 ALT 13 IU/L (10-60) 04/17/18 21:15 Alkaline Phosphatase 92 IU/L (42-121) 04/17/18 21:15 Lactate Dehydrogenase 107 IU/L (91-225) 04/18/18 05:53 Total Protein 7.4 g/dL (6.7-8.2) 04/17/18 21:15 Albumin 3.3 g/dL (3.2-5.5) 04/17/18 21:15 Globulin 4.1 g/dL (2.1-4.2) 04/17/18 21:15 Albumin/Globulin Ratio 0.8 (1.0-2.2) L 04/17/18 21:15 Lipase 23 U/L (22-51) 04/17/18 21:15 Vitamin B12 206 pg/mL (180-914) 04/18/18 05:53 Serum HCG, Qual NEGATIVE 04/17/18 21:15 Urine Color YELLOW 04/17/18 23:05 Urine Clarity CLEAR (CLEAR) 04/17/18 23:05 Urine pH 5.5 PH (5.0-7.5) 04/17/18 23:05 Ur Specific [place] 1.015 (1.002-1.030) 04/17/18 23:05 Urine Protein NEGATIVE mg/dL (NEGATIVE) 04/17/18 23:05 Urine Glucose (UA) NEGATIVE mg/dL (NEGATIVE) 04/17/18 23:05 Urine Ketones TRACE mg/dL (NEGATIVE) 04/17/18 23:05 Urine Occult Blood NEGATIVE (NEGATIVE) 04/17/18 23:05 Urine Nitrite POSITIVE (NEGATIVE) H 04/17/18 23:05 Urine Bilirubin NEGATIVE (NEGATIVE) 04/17/18 23:05 Urine Urobilinogen 1 (NORMAL) E.U./dL (NORMAL) 04/17/18 23:05 Ur Leukocyte Esterase NEGATIVE (NEGATIVE) 04/17/18 23:05 Urine RBC None Seen /HPF (0-5) 04/17/18 23:05 Urine WBC 0-3 /HPF (0-5) 04/17/18 23:05 Ur Squamous Epith Cells MOD Squamous (<= Few) H 04/17/18 23:05 Urine Bacteria Many /HPF (None Seen) H 04/17/18 23:05 Ur Microscopic Review INDICATED 04/17/18 23:05 Urine Culture Comments NOT INDICATED 04/17/18 23:05
[2018-04-19] MEDS ORDERED: METOPROLOL TARTRATE 50 MG TABLET PO SCH (09:00)
[2018-04-19] MEDS: OXYBUTYNIN 5MG TABLET PO SCH ×2 (09:08→21:29)
[2018-04-19] MEDS: CYCLOBENZAPRINE 10 MG TABLET PO SCH ×2 (09:09→21:29)
[2018-04-19] MEDS: SODIUM CHLORIDE FLUSH 0.9% 10 ML SYRINGE IVP SCH ×3 (09:10→20:21)
[2018-04-19] MEDS: ENOXAPARIN 40 MG/0.4 ML SYRINGE SUBQ SCH (09:10)
[2018-04-19] MEDS: POLYETHYLENE GLYCOL 3350 17 GM PACKET PO SCH (09:11)
[2018-04-19] MEDS: VARENICLINE TARTRATE 1 MG PO SCH (09:11)
[2018-04-19] MEDS ORDERED: LORazepam 0.5 MG TABLET PO ONE (09:27)
--- NOTE | 2018-04-19 11:21 | MRI Report ---
Procedure Date: 04/19/2018 Accession Number: [id number] / [id number] Procedure: MRI - Brain W/O CPT Code: FULL RESULT: EXAM: MRI BRAIN WITHOUT CONTRAST EXAM DATE: 04/19/2018 11:06 AM. CLINICAL HISTORY: TIA symptoms. Facial numbness. COMPARISON: None. TECHNIQUE: Multiplanar, multisequence T1-weighted and fluid-sensitive MR sequences of the brain were performed. Sequences optimized for routine evaluation. Other: None. IV Contrast: None. FINDINGS: Brain Volume: Normal for age. Parenchyma/Dura: Mildly low-lying cerebellar tonsils but not sufficient to clearly qualify as a Chiari type I malformation, maximal extent of the tonsils below the plane of the foramen magnum just under 5 mm. No restricted diffusion to suggest acute or recent ischemic infarct. No cerebral hemorrhage. No mass effect, midline shift or abnormal subdural fluid collection. No evidence for cerebral swelling or edema or clear evidence of focal cerebral white matter disease. Ventricles/Cisterns: No hydrocephalus. No abnormal extra-axial fluid collection or hemorrhage. Vasculature: The major arterial skull base flow voids are present. Sinuses: No acute appearing sinus disease. Bones: No focal edema of the calvarium. Other: None. IMPRESSION: 1. Mildly low-lying cerebellar tonsils of uncertain clinical significance. 2. Otherwise unremarkable appearance of the brain without evidence for acute hemorrhage or stroke. RADIA
[2018-04-19] MEDS: ACETAMINOPHEN 325 MG TABLET PO PRN (13:28)
[2018-04-19] MEDS: SACCHAROMYCES BOULARDII 250 MG CAPSULE PO SCH (16:19)
[2018-04-19] MEDS: HYDROmorphone 2 MG/ML VIAL IVP PRN (20:20)
--- NOTE | 2018-04-20 02:35 | Ultrasound Report ---
Procedure Date: 04/20/2018 Accession Number: [id number] / [id number] Procedure: US - Carotid Doppler Complete CPT Code: FULL RESULT: EXAM: BILATERAL CAROTID AND VERTEBRAL ARTERY DUPLEX DOPPLER ULTRASOUND: EXAM DATE: 04/20/2018 12:34 AM CLINICAL HISTORY: TIA symptoms. COMPARISON: None. TECHNIQUE: Grayscale imaging, color Doppler, and duplex spectral Doppler were used to evaluate the carotid and vertebral arteries bilaterally. Static images were obtained. FINDINGS: There is scattered soft plaque within the distal portion of the common carotid and the proximal portions of the internal carotid arteries bilaterally. No significant grayscale evidence of stenosis. VELOCITIES (cm/sec): VELOCITIES: Right: CCA Mid: PSV 80.9 cm/sec. CCA Dist: PSV 77.1 cm/sec. ICA Prox: PSV 80.9 cm/sec, EDV 22.7 cm/sec. ICA Mid: PSV 103 cm/sec, EDV 31.6 cm/sec. ICA Dist: PSV 116.9 cm/sec, EDV 48 cm/sec. ECA: PSV 95 cm/sec. Vertebral Artery: PSV 83 cm/sec. RVA flow direction: Antegrade. ICA/CCA Ratio: 1.05. Left: CCA Mid: PSV 81 cm/sec. CCA Dist: PSV 91.6 cm/sec. ICA Prox: PSV 60.6 cm/sec, EDV 24 cm/sec. ICA Mid: PSV 103 cm/sec, EDV 31.6 cm/sec. ICA Dist: PSV 80.2 cm/sec, EDV 31.6 cm/sec. ECA: PSV 75 cm/sec. Vertebral Artery: PSV 38 cm/sec. LVA flow direction: Antegrade. ICA/CCA Ratio: 0.7. ICA diameter stenosis: Right: <50% by velocity and <70% by NASCET criteria. Left: <50% by velocity and <70% by NASCET criteria. IMPRESSION: 1. Mild scattered soft plaque within the carotid arteries. 2. In the right carotid artery there are no elevated carotid artery velocities to suggest hemodynamically significant stenosis. 3. In the left carotid artery there are no elevated carotid artery velocities to suggest hemodynamically significant stenosis. 4. Normal antegrade flow is present in bilateral vertebral arteries. General Recommendations: Stenosis =50% ICA - Follow-up ultrasound 6-12 months Stenosis <50% ICA - High Risk Patient with plaque - Follow-up ultrasound 1-2 years Normal Study but High Risk Patient - Follow-up ultrasound 3-5 years Management recommendations and diagnostic criteria are based on current IAC endorsed standards in Carotid Artery Stenosis: Grayscale and Doppler Ultrasound Diagnosis. Validated velocity measurements with angiographic measurements and velocity criteria are extrapolated from diameter data as defined by the Society of Radiologists in Ultrasound Consensus Conference Radiology 2003; 229;340-346. RADIA
[2018-04-20] MEDS: SODIUM CHLORIDE FLUSH 0.9% 10 ML SYRINGE IVP PRN ×4 (03:10→14:49)
[2018-04-20] MEDS: metroNIDAZOLE 500 MG/100 ML 500 MG/100 ML BAG IV SCH ×3 (03:10→19:47)
[2018-04-20] MEDS: SODIUM CHLORIDE FLUSH 0.9% 10 ML SYRINGE IVP SCH ×5 (03:39→23:36)
[2018-04-20] MEDS: AMPICILLIN/SULBACTAM 3 GM in SODIUM CHLORIDE 0.9% MINIBAG 100 ML IV SCH ×4 (04:22→22:02)
[2018-04-20] MEDS: HYDROmorphone 2 MG/ML VIAL IVP PRN ×3 (05:06→20:27)
[2018-04-20 05:35] LABS: BASOPHILS # (AUTO) 0.1 10^3/uL (0.0-0.1); BASOPHILS % (AUTO) 0.7 %; EOSINOPHILS # (AUTO) 0.3 10^3/uL (0.0-0.7); EOSINOPHILS % (AUTO) 3.6 %; HGB - HEMOGLOBIN 9.9 g/dL (12.0-16.0); LYMPHOCYTES # (AUTO) 1.5 10^3/uL (1.5-3.5); LYMPHOCYTES % (AUTO) 16.6 %; MEAN CORPUSCULAR HEMOGLOBIN 25.1 pg (27.0-31.0); MEAN CORPUSCULAR HGB CONC 33.1 g/dL (32.0-36.0); MEAN CORPUSCULAR VOLUME 75.8 fL (81.0-99.0); MEAN PLATELET VOLUME 9.4 fL (7.9-10.8); MONOCYTES # (AUTO) 0.7 10^3/uL (0.0-1.0); MONOCYTES % (AUTO) 7.8 %; NEUTROPHILS # (AUTO) 6.6 10^3/uL (1.5-6.6); NEUTROPHILS % (AUTO) 71.3 %; PLT - PLATELET COUNT 214 10^3/uL (130-450); RED BLOOD COUNT 3.95 10^6/uL (4.20-5.40); RED CELL DISTRIBUTION WIDTH 16.8 % (12.0-15.0); WHITE BLOOD COUNT 9.2 x10^3/uL (4.8-10.8)
[2018-04-20 05:44] LABS: CALCIUM 8.2 mg/dL (8.5-10.3); CREATININE 0.8 mg/dL (0.4-1.0)
[2018-04-20] MEDS: LEVOTHYROXINE 100 MCG TABLET PO SCH (06:30)
[2018-04-20] MEDS: SACCHAROMYCES BOULARDII 250 MG CAPSULE PO SCH ×2 (08:01→17:04)
[2018-04-20] MEDS: ENOXAPARIN 40 MG/0.4 ML SYRINGE SUBQ SCH (08:02)
[2018-04-20] MEDS: CYCLOBENZAPRINE 10 MG TABLET PO SCH ×2 (08:02→20:27)
[2018-04-20] MEDS: oxyCODONE 5 MG TABLET PO PRN ×3 (08:02→16:28)
[2018-04-20] MEDS: OXYBUTYNIN 5MG TABLET PO SCH ×2 (08:02→20:27)
[2018-04-20] MEDS: ACETAMINOPHEN 325 MG TABLET PO PRN ×3 (08:02→16:28)
[2018-04-20] MEDS: POLYETHYLENE GLYCOL 3350 17 GM PACKET PO SCH (08:03)
[2018-04-20] MEDS: METOPROLOL SUCCINATE 25 MG TABLET PO SCH (08:07)
[2018-04-20] MEDS: VARENICLINE TARTRATE 1 MG PO SCH (10:03)
[2018-04-20] MEDS ORDERED: LIDOCAINE 1%-EPI 1:100000 30 ML MDV ONE (15:28)
[2018-04-20] MEDS ORDERED: BUPIVACAINE 0.5% PF 30 ML VIAL ONE (15:28)
--- NOTE | 2018-04-20 17:49 | ANESTHESIA ---
Pre-Anesthesia VS, & Labs - Diagnosis Carine-rectal abcess (anterior/poterior) - Procedure I&D Carine-rectal abcess Vital Signs: Temp Pulse Resp BP Pulse Ox 36.6 C 72 20 111/58 L 97 04/20/18 15:42 04/20/18 15:42 04/20/18 15:42 04/20/18 15:42 04/20/18 15:42 Height 5 ft 4 in Weight (kg) 116 kg Body Mass Index 43.9 - NPO Last Fluid Intake: 1230 Last Food Intake: 1230 - Is Patient ?: No Comments:: negative HCG 04/17/18 - Lab Results Lab results reviewed: Yes Fish Bones: 04/20/18 05:25 04/20/18 05:25 Home Medications and Allergies Home Medications: Ambulatory Orders Medication Instructions Recorded Confirmed hydrOXYzine PAMOATE [Vistaril] 25 mg PO BID 06/22/16 04/18/18 Loratadine [Allergy] 10 mg PO DAILY PRN 09/15/16 04/18/18 Metoprolol Tartrate 75 mg PO DAILY 09/15/16 04/18/18 Promethazine [Phenergan] 25 mg PO TID PRN 09/15/16 04/18/18 Oxybutynin [Ditropan] 5 mg PO BID 08/31/17 04/18/18 Cyclobenzaprine [Flexeril] 10 mg PO BID 04/18/18 04/18/18 Levothyroxine Sodium 100 mcg PO QDAC 04/18/18 04/18/18 Metoprolol Tartrate [Metoprolol 100 mg PO QPM 04/18/18 04/18/18 Tartrate] Varenicline Tartrate [Chantix] 1 mg PO DAILY 04/18/18 04/18/18 Vit E/Lidocaine/Aloe/Collagen 1 applic TOP Q8H PRN 04/18/18 04/18/18 [Lidotrex 2% Wound Gel] Allergies/Adverse Reactions: Allergies Allergy/AdvReac Type Severity Reaction Status Date / Time No Known Drug Allergies Allergy Verified 04/17/18 19:50 Anes History & Medical History - Anesthetic History Anesthesia Complications: reports: No previous complications Family history of Anesthesia Complications: Denies Family history of Malignant Hyperthermia: Denies - Medical History Cardiovascular: reports: None, Hypertension, Other (Tachycardia. Started 2009. Seen by [facility] and 24 hour holter neg. Seen by [facility] 07/08/16 and had been taking up to 80 mg of propranolol tid prn.[place] to be from anxiety and her imipramine. Changed to metoprolol 75 mg po bid. One week Zio patch monitor ordered. But no follwoup noted. ) Pulmonary: reports: None Gastrointestinal: reports: None Urinary: reports: Incontinence, Frequency, Other (carine-rectal abcess (draining)) Neuro: reports: Headaches (With referral to [facility] headache clinic on April 07, 2018. She has had several referrals but no she didn't followup. ) Musculoskeletal: reports: Osteoarthritis (Of the backAs well as degenerative disc disease), Fibromyalgia, Scoliosis, Chronic back pain (seen by [facility] 03/14/18 and changed to zanaflex. Neurontin max dose helped but became too emotionally numb. PT 10 session [place] 2016 did not help. [facility] pain managment gave her spine injections in 2016 but none helped. Cymalta has caused nausea. ) Endocrine/Autoimmune: reports: HyPOthyroidism, Other (Hypoglycemia,) Blood Disorders: reports: None Skin: reports: None Smoking Status: Current every day smoker Other Past Medical History: She has had chronic pain for more than 5 years. She has been treated by psychiatry with Savella and discontinue the Lyrica and cyclobenzaprine. She was transitioned to tizanidine in the summer 2017 but it does not work well as cyclobenzaprine. Savella was discontinued and she was discharged by the psychiatrist saying they could not treat her for pain. In the past she used Percocet but was weaned off all narcotics in 2017. Pain is primarily in the hips and low back. Spasming low back buttocks. She has tried physical therapy. Requested referral to pain clinic April. - Surgical History General: Gastric surgery Eyes Ears Nose Throat (EENT): Tonsil/Adenoidectomy Orthopedic: Carpal Tunnel surgery Results - Echo Results Echo Results: Report reviewed (EF 60-65%) Exam General: Alert, Oriented x3, Cooperative Mallampati classification: II Thyromental Distance: 4-6 cm Respiratory: Lungs clear, Normal breath sounds Cardiovascular: Regular rate Mental/Cognitive Status: Alert/Oriented X3, Normal for patient Cognitive Status: Within normal limits Plan Anesthesia Type: General Consent for Procedure(s) Verified and Reviewed: Yes Code Status: Attempt Resuscitation ASA classification: 2-Mild systemic disease Is this case an emergency?: No (Case moved to AM r/t NPO status)
--- NOTE | 2018-04-20 17:50 | PROVIDER PROGRESS NOTE ---
Assessment/Plan - Problem List (1) Cellulitis of female genitalia Assessment/Plan: WBC decreasing every day. Continue iv antibiotics. (2) Perirectal abscess Assessment/Plan: WBC decreasing every day. The surgeon from [facility] was to speak to Dr Mccormick directly. She apparently was not accepted in transfer, after they spoke. Continue antibiotics. Await I & D plan per our surgeon. (3) TIA (transient ischemic attack) Assessment/Plan: No further symptoms and had normal MRI of brain and normal Echo. (4) Dehydration Assessment/Plan: Pt remains in gentle hydration for possible upcoming NPO status for pelvic surgery. (5) Electrolyte disorder Assessment/Plan: Resolved. Monitor daily labs. (6) Hypotension Assessment/Plan: Resolved with significant decrease in B-aryan dose and hold parameters provided. It is for PSVT history. OK to stop telemetry as HR is 80's and only rises briefly, appropriately during walking and toileting. - Current Meds Current Meds: Current Medications Generic Name Dose Route Start Last Admin Trade Name Freq PRN Reason Stop Dose Admin Acetaminophen 650 mg 04/18/18 00:07 04/20/18 16:28 Tylenol PO 650 mg Q4HR PRN Administration Pain 1 to 4 Cyclobenzaprine HCl 10 mg 04/18/18 21:00 04/20/18 08:02 Flexeril PO 10 mg BID JUAN DIEGO Administration Enoxaparin Sodium 40 mg 04/18/18 09:00 04/20/18 08:02 Lovenox SUBQ 40 mg DAILY JUAN DIEGO Administration Hydromorphone HCl 2 mg 04/19/18 16:37 04/20/18 14:49 Dilaudid (Vial) IVP 2 mg Q2H PRN Administration PAIN Metronidazole 500 mg in 100 mls @ 100 mls/hr 04/18/18 03:00 04/20/18 12:00 Flagyl 500 Mg/100 Ml IV Infused Q8H JUAN DIEGO Infusion Ampicillin Sodium/Sulbactam 100 mls @ 200 mls/hr 04/18/18 22:00 04/20/18 16: 30 Sodium 3 gm/ Sodium Chloride IV 0 mls/hr Q6H JUAN DIEGO Infusion Levothyroxine Sodium 100 mcg 04/19/18 07:00 04/20/18 06:30 Synthroid PO 100 mcg QDAC JUAN DIEGO Administration Metoprolol Succinate 25 mg 04/20/18 09:00 04/20/18 08:07 Toprol Xl PO Not Given DAILY JUAN DIEGO Non-Formulary Medication 1 mg 04/19/18 09:00 04/20/18 10:03 Varenicline Tartrate [Chantix] PO Not Given DAILY JUAN DIEGO Ondansetron HCl 4 mg 04/18/18 00:07 04/18/18 08:05 Zofran Inj IVP 4 mg Q6HR PRN Administration Nausea / Vomiting Ondansetron HCl 4 mg 04/18/18 00:07 04/20/18 09:19 Zofran Odt TL 4 mg Q6HR PRN Administration Nausea / Vomiting Oxybutynin Chloride 5 mg 04/18/18 21:00 04/20/18 08:02 Ditropan PO 5 mg BID JUAN DIEGO Administration Oxycodone HCl 5 mg 04/18/18 00:07 04/20/18 16:28 Roxicodone PO 5 mg Q4HR PRN Administration Pain 5 to 7 Polyethylene Glycol 17 gm 04/18/18 09:00 04/20/18 08:03 Miralax PO 17 gm DAILY JUAN DIEGO Administration Promethazine HCl 25 mg 04/18/18 16:38 04/20/18 17:24 Phenergan PO 25 mg TID PRN Administration Nausea / Vomiting Saccharomyces Boulardii 250 mg 04/19/18 17:00 04/20/18 17:04 Florastor PO 250 mg BIDWM JUAN DIEGO Administration Sodium Chloride 10 ml 04/18/18 00:07 04/20/18 14:49 Normal Saline Flush 0.9% IVP 20 ml PRN PRN Administration NEEDED PER PROVIDER ORDERS Sodium Chloride 10 ml 04/18/18 01:00 04/20/18 17:04 Normal Saline Flush 0.9% IVP 10 ml 0100,[id number],1700 JUAN DIEGO Administration - Lab Result Fish Bone Diagrams: 04/20/18 05:25 04/20/18 05:25 - Additional Planning My Orders: My Active Orders 04/19/18 17:00 Saccharomyces Boulardii [Florastor] 250 mg PO BIDWM 04/20/18 09:00 Metoprolol Succinate [Toprol Xl] 25 mg PO DAILY 04/21/18 05:00 CBC - COMP BLD CT W/AUTO DIFF [HEME] DAILYLAB 04/22/18 05:00 CBC - COMP BLD CT W/AUTO DIFF [HEME] DAILYLAB Subjective - Subjective Patient Reports: Feeling Better, Other (Less perineal pain after warm compress. Drainage from wound persists and is bloody now. No BM since here. Nauseated after prune juice this am.) Objective Vital Signs: Vital Signs - 24 hr 04/19/18 04/20/18 04/20/18 20:25 00:05 04:50 Temperature 37.6 C H 37.1 C 37.5 C Heart Rate [ 87 94 83 Brachial] Respiratory 18 18 16 Rate Blood Pressure 105/49 L [Left Brachial artery] Blood Pressure 100/52 L 114/60 [Right Brachial artery] O2 Saturation 96 98 100 04/20/18 04/20/18 04/20/18 08:05 13:00 15:42 Temperature 37.2 C 36.7 C 36.6 C Heart Rate [ 95 82 72 Brachial] Respiratory 20 20 20 Rate Blood Pressure [Left Brachial artery] Blood Pressure 114/54 L 114/49 L 111/58 L [Right Brachial artery] O2 Saturation 98 99 97 Oxygen O2 Source Room air I&O (Last 24 Hrs): Intake and Output Totals x24h 04/18/18 04/19/18 04/20/18 23:59 23:59 23:59 Intake Total 3696.667 2647 1626.667 Balance 3696.667 2647 1626.667 General: Alert, Oriented x3 HEENT: Mucous membr. moist/pink Neck: Supple, No JVD Neuro: Non Focal Cardiovascular: Regular rate, No murmurs Respiratory: No respiratory distress, Breath sounds nml Abdomen: Soft, No tenderness Rectal: Other (Defferred to surgeon) Extremities: No edema - Results Results: Laboratory Results WBC 9.2 x10^3/uL (4.8-10.8) 04/20/18 05:25 RBC 3.95 10^6/uL (4.20-5.40) L 04/20/18 05:25 Hgb 9.9 g/dL (12.0-16.0) L 04/20/18 05:25 Hct 29.9 % (37.0-47.0) L 04/20/18 05:25 MCV 75.8 fL (81.0-99.0) L 04/20/18 05:25 MCH 25.1 pg (27.0-31.0) L 04/20/18 05:25 MCHC 33.1 g/dL (32.0-36.0) 04/20/18 05:25 RDW 16.8 % (12.0-15.0) H 04/20/18 05:25 Plt Count 214 10^3/uL (130-450) 04/20/18 05:25 MPV 9.4 fL (7.9-10.8) 04/20/18 05:25 Reticulocyte % (Auto) 2.40 % (0.5-2.3) H 04/18/18 05:53 Neut # (Auto) 6.6 10^3/uL (1.5-6.6) 04/20/18 05:25 Lymph # (Auto) 1.5 10^3/uL (1.5-3.5) 04/20/18 05:25 [place] # (Auto) 0.7 10^3/uL (0.0-1.0) 04/20/18 05:25 Eos # (Auto) 0.3 10^3/uL (0.0-0.7) 04/20/18 05:25 Baso # (Auto) 0.1 10^3/uL (0.0-0.1) 04/20/18 05:25 Absolute Nucleated RBC 0.00 x10^3/uL 04/20/18 05:25 Total Counted 100 04/17/18 21:15 Band Neuts % (Manual) 10 % (0-10) 04/17/18 21:15 Abnorm Lymph % (Manual) 0 % 04/17/18 21:15 Nucleated RBC % 0.0 /100WBC 04/20/18 05:25 Neutrophils # (Manual) 17.5 10^3/uL (1.5-6.6) H 04/17/18 21:15 Lymphocytes # (Manual) 2.4 10^3/uL (1.5-3.5) 04/17/18 21:15 Monocytes # (Manual) 0.2 10^3/uL (0.0-1.0) 04/17/18 21:15 Eosinophils # (Manual) 0.2 10^3/uL (0-0.7) 04/17/18 21:15 Basophils # (Manual) 0.0 10^3/uL (0-0.1) 04/17/18 21:15 Differential Comment MANUAL DIFFERENTIAL 04/17/18 21:15 Manual Slide Review Indicated 04/17/18 21:15 WBC Morphology NORMAL APPEARANCE (NORMAL) 04/17/18 21:15 Platelet Estimate NORMAL (130-450,000) (NORMAL) 04/17/18 21:15 Platelet Morphology NORMAL APPEARANCE (NORMAL) 04/17/18 21:15 RBC Morph Micro Appear NORMAL APPEARANCE (NORMAL) 04/17/18 21:15 Absolute Retic 0.105 10^6/uL (0.020-0.110) 04/18/18 05:53 Sodium 137 mmol/L (135-145) 04/20/18 05:25 Potassium 3.5 mmol/L (3.5-5.0) 04/20/18 05:25 Chloride 106 mmol/L (101-111) 04/20/18 05:25 Carbon Dioxide 24 mmol/L (21-32) 04/20/18 05:25 Anion Gap 7.0 (6-13) 04/20/18 05:25 BUN 8 mg/dL (6-20) 04/20/18 05:25 Creatinine 0.8 mg/dL (0.4-1.0) 04/20/18 05:25 Estimated GFR (MDRD) 79 (>89) L 04/20/18 05:25 Glucose 99 mg/dL (70-100) 04/20/18 05:25 Lactic Acid 1.0 mmol/L (0.5-2.2) 04/17/18 21:15 Calcium 8.2 mg/dL (8.5-10.3) L 04/20/18 05:25 Magnesium 1.8 mg/dL (1.7-2.8) 04/17/18 21:15 Iron 22 ug/dL (28-170) L 04/18/18 05:53 TIBC 374 ug/dL (250-450) 04/18/18 05:53 % Saturation 6 % (20-50) L 04/18/18 05:53 Transferrin 267 mg/dL (192-382) 04/18/18 05:53 Ferritin 22.8 ng/mL (11.0-306.8) 04/18/18 05:53 Total Bilirubin 1.0 mg/dL (0.2-1.0) 04/17/18 21:15 AST 15 IU/L (10-42) 04/17/18 21:15 ALT 13 IU/L (10-60) 04/17/18 21:15 Alkaline Phosphatase 92 IU/L (42-121) 04/17/18 21:15 Lactate Dehydrogenase 107 IU/L (91-225) 04/18/18 05:53 Total Protein 7.4 g/dL (6.7-8.2) 04/17/18 21:15 Albumin 3.3 g/dL (3.2-5.5) 04/17/18 21:15 Globulin 4.1 g/dL (2.1-4.2) 04/17/18 21:15 Albumin/Globulin Ratio 0.8 (1.0-2.2) L 04/17/18 21:15 Lipase 23 U/L (22-51) 04/17/18 21:15 Vitamin B12 206 pg/mL (180-914) 04/18/18 05:53 Serum HCG, Qual NEGATIVE 04/17/18 21:15 Urine Color YELLOW 04/17/18 23:05 Urine Clarity CLEAR (CLEAR) 04/17/18 23:05 Urine pH 5.5 PH (5.0-7.5) 04/17/18 23:05 Ur Specific [place] 1.015 (1.002-1.030) 04/17/18 23:05 Urine Protein NEGATIVE mg/dL (NEGATIVE) 04/17/18 23:05 Urine Glucose (UA) NEGATIVE mg/dL (NEGATIVE) 04/17/18 23:05 Urine Ketones TRACE mg/dL (NEGATIVE) 04/17/18 23:05 Urine Occult Blood NEGATIVE (NEGATIVE) 04/17/18 23:05 Urine Nitrite POSITIVE (NEGATIVE) H 04/17/18 23:05 Urine Bilirubin NEGATIVE (NEGATIVE) 04/17/18 23:05 Urine Urobilinogen 1 (NORMAL) E.U./dL (NORMAL) 04/17/18 23:05 Ur Leukocyte Esterase NEGATIVE (NEGATIVE) 04/17/18 23:05 Urine RBC None Seen /HPF (0-5) 04/17/18 23:05 Urine WBC 0-3 /HPF (0-5) 04/17/18 23:05 Ur Squamous Epith Cells MOD Squamous (<= Few) H 04/17/18 23:05 Urine Bacteria Many /HPF (None Seen) H 04/17/18 23:05 Ur Microscopic Review INDICATED 04/17/18 23:05 Urine Culture Comments NOT INDICATED 04/17/18 23:05 ABX Reporting Has patient been on IV antibiotics over the past 48 hours?: Yes
--- NOTE | 2018-04-20 20:32 | CONSULTATION NOTE ---
Referring Provider Name of Referring Provider:: Dr. Rosey Navarro Consult Date: 04/19/18 Chief Complaint - Chief Complaint Chief Complaint: Complex perineal abscess History of Present Illness - Admitted From Admitted From:: [facility] ED - History Obtained From Records Reviewed: Yes History obtained from: Patient and chart Exam Limitations: None - History of Present Illness HPI Comment/Other: 42 year old female evaluated in Room 2205 [facility] MS unit. This patient was initially admitted by Dr. Toscano and Dr. Veronica consulted for evaluation and treatment of labial cellulitis. The patient tells me that she normally does not wear underwear but in the 24 hours prior to her admission she wore the equivalent of male swim trunks in order to help her at his job ([employer]) and by the time she got home she was too tired to remove the trunks and feels that wearing and leaving the trunks on led to the cellulitis and the subsequent infection. Now that the labial lesion has spontaneously started draining she has started feeling better but the buttock lesion is becoming larger. The initial CT scan was not definitive for an abscess but was certainly concerning for possible infection. An MRI was obtained that showed the rectum as the likely source of the inflammation. Dr. Veronica recommended that general surgery be consulted for a possible opinion. From what I can tell this was his last input in the patient's care. Dr. Bhatt states that she then called me and left a message for me to consult on the patient. I did not receive this message and only noted my name associated with this patient's care by accident. As long as the patient has been admitted to the hospital she has been on appropriate antibiotics and has clinically improved. My initial evaluation suggested that this complex abscess was not something that should be tackled as our hospital as a multidisciplinary approach would be needed. I recommended transfer to a higher level of care. Dr. Bhatt called [facility] who also felt that her needed care was more than they could provide. [facility] Delacruz was then called and their section hand surgeon (name on request) sybil chowdhury told me that she did not feel that the patient should be transferred despite the fact that I clearly explained to her that we were a [facility] and that her care exceeded the care that I thought we could provide and that Felisha felt similarly. The section hand surgeon recommended that I drain the abscess. Now the patient has been in our hospital for 48 hours and although she has definitely clinically improved (no fever, decreased WBC) the complexity of the abscess has not improved. I explained the aforementioned to the patient and explained that since we are unable to transfer her I am offering that I drain this abscess. Both she and her have indicated that they would like to proceed with my plan. History - Past Medical History Cardiovascular: reports: None, Hypertension, Other (Tachycardia. Started 2009. Seen by [facility] and 24 hour holter neg. Seen by [facility] 07/08/16 and had been taking up to 80 mg of propranolol tid prn.[place] to be from anxiety and her imipramine. Changed to metoprolol 75 mg po bid. One week Zio patch monitor ordered. But no follwoup noted. ) Respiratory: reports: None Neuro: reports: Headaches (With referral to [facility] headache clinic on April 07, 2018. She has had several referrals but no she didn't followup. 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 Neurontin max dose helped but became too emotionally numb. PT 10 session in [place] in [address] [facility] for pain managment gave her spine injections in 2016 but none helped. Cymalta has caused nausea. ) Derm: reports: None MRSA Hx?: No Other Past Medical History: She has had chronic pain for more than 5 years. She has been treated by psychiatry with Savella and discontinue the Lyrica and cyclobenzaprine. She was transitioned to tizanidine in the summer 2017 but it does not work well as cyclobenzaprine. Savella was discontinued and she was discharged by the psychiatrist saying they could not treat her for pain. In the past she used Percocet but was weaned off all narcotics in 2017. Pain is primarily in the hips and low back. Spasming low back buttocks. She has tried physical therapy. Requested referral to pain clinic April. - Past Surgical History General: reports: Gastric surgery Ortho: reports: Carpal Tunnel surgery HEENT: reports: Tonsil/Adenoidectomy - Family & Social History Family History Comment/Other: Mom has hx of substance abuse and mental illness. No contract w her for over 18 years. She's ~60. Dad has hx of substance abuse, HTN. He's 63. Full Sister has hx of substance abuse, end stage COPD. Half Sister healthy as a horse. 4 kids. All healthy without CAD, HTN, DM, thyroid, but one has autism. Living arrangement: At home Living Situation: With spouse/s.o. Social History Notes: She was born around [facility]. her first in her late teens and he enlisted in the [employer] and they lived in [facility]. For a while they were in [place]. Then they returned to [place] and they have been on [facility] for 4 years. [place] does not like living on [facility] [place] 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 She smoked half a pack per day in her 20s. Started around the age of 19. Currently smokes 3 cigarettes a day. She has no history of alcohol abuse. She does daily ingestion or vague being of cannabis. She denies any use of cocaine, heroin, LSD, methamphetamines. - Substance History Use: Uses substance without health or social issues: Tobacco Abuse: Recurrent use of substance despite neg consequences: NONE Dependence: Experiences withdrawal or developed tolerances: NONE Tobacco Details: Cigarettes (3 to 6 cigarettes a day since her 20s) - POLST Patient has POLST: No POLST Status: Full Code (At this point, she would like everything done including intubation, CPR, tube feeds. If she were to have significant disease state resulting in significant cognitive dysfunction where she has severe memory loss and is 24/ 7 bed bound, let her go) Meds/Allgy - Home Medications Home Medications: Ambulatory Orders Medication Instructions Recorded Confirmed hydrOXYzine PAMOATE [Vistaril] 25 mg PO BID 06/22/16 04/18/18 Loratadine [Allergy] 10 mg PO DAILY PRN 09/15/16 04/18/18 Metoprolol Tartrate 75 mg PO DAILY 09/15/16 04/18/18 Promethazine [Phenergan] 25 mg PO TID PRN 09/15/16 04/18/18 Oxybutynin [Ditropan] 5 mg PO BID 08/31/17 04/18/18 Cyclobenzaprine [Flexeril] 10 mg PO BID 04/18/18 04/18/18 Levothyroxine Sodium 100 mcg PO QDAC 04/18/18 04/18/18 Metoprolol Tartrate [Metoprolol 100 mg PO QPM 04/18/18 04/18/18 Tartrate] Varenicline Tartrate [Chantix] 1 mg PO DAILY 04/18/18 04/18/18 Vit E/Lidocaine/Aloe/Collagen 1 applic TOP Q8H PRN 04/18/18 04/18/18 [Lidotrex 2% Wound Gel] - Allergies Allergies/Adverse Reactions: Allergies Allergy/AdvReac Type Severity Reaction Status Date / Time No Known Drug Allergies Allergy Verified 04/17/18 19:50 Review of Systems - Constitutional Constitutional: reports: Fever, Chills - All Other Systems All Other Systems: reports: Reviewed and negative Exam - Vital Signs Reviewed Vital Signs: Yes Vital Signs: Vital Signs x48h Temp Pulse Resp BP Pulse Ox 04/20/18 20:26 36.7 C 70 20 108/63 100 04/20/18 15:42 36.6 C 72 20 111/58 L 97 04/20/18 13:00 36.7 C 82 20 114/49 L 99 - Physical Exam General Appearance: positive: No acute distress (Obese.) Eyes Bilateral: positive: No lid inflammation, Conjunctivae nml, No scleral icterus ENT: positive: No signs of dehydration Neck: positive: Trachea midline Respiratory: positive: Chest non-tender, No respiratory distress, Breath sounds nml Cardiovascular: positive: Regular rate & rhythm Abdomen: positive: Non-tender, Nml bowel sounds, No distention Rectal: positive: Other (Draining lesion inferior and slightly lateral to the left labia with some fluctuance of the left buttocks. Pointing.) Extremities: positive: Non-tender, Nml appearance Neurologic/Psychiatric: positive: Oriented x3 Conclusion/Plan - Diagnosis Diagnosis: Complex perineal and perianal abscess - Plan Plan: Incision and drainage. The indications, procedure, alternatives including no surgery, possible risks including infection (deep or superficial), bleeding requiring transfusion (with all of its risks), and were fully explained to the patient and her and all questions answered. I also explained the pathophysiology. I explained that following the surgery that her stools must be soft to help with healing and that the areas need to be kept clean and dry. I explained why the wounds will be left open. I also explained that depending on the operative findings I may be packing the wound. Verbal and written consent was obtained. The patient, in preparation for surgery will be nothing by mouth, and receive 3.375 g of Zosyn with induction. I asked her to contact me with any surgical questions and her concerns and she stated that she would. I asked her to let me know if there is any way we can make her stay at [facility] more comfortable and she stated that she would let me know. 45 minutes of [id number] time spent with the patient, the majority of which was spent in discussion, coordination of care, and completion of the requisite paperwork Dragon disclaimer: This document was created in part using voice recognition technology. Because of the inherent limitations of the system ([employer]'s [employer] user manual states that the licensee understands that speech recognition is a statistical process and that recognition errors are inherent in the process), occasional same sounding word substitutions and grammatical errors do occur and persist despite proofreading. Please read this document for context. - Lab Results Lab results reviewed: Yes Fish Bones: 04/20/18 05:25 04/20/18 05:25 - Diagnostic Imaging Results Diagnostic Imaging Results: positive: Final report reviewed, Read independently - Other Other Results/Comments: Every attempt was made to try and transfer this patient to a higher level of care.
[2018-04-20] MEDS ORDERED: SODIUM CHLORIDE 0.9% 500 ML IV PRN (22:00)
[2018-04-21] MEDS: metroNIDAZOLE 500 MG/100 ML 500 MG/100 ML BAG IV SCH (03:00)
[2018-04-21] MEDS: AMPICILLIN/SULBACTAM 3 GM in SODIUM CHLORIDE 0.9% MINIBAG 100 ML IV SCH (04:16)
[2018-04-21] MEDS ORDERED: SALINE ENEMA 133 ML BOTTLE RC SCH (06:00)
[2018-04-21] MEDS: LEVOTHYROXINE 100 MCG TABLET PO SCH (06:11)
[2018-04-21 06:16] LABS: BASOPHILS % (AUTO) 0.5 %; EOSINOPHILS # (AUTO) 0.3 10^3/uL (0.0-0.7); EOSINOPHILS % (AUTO) 3.9 %; LYMPHOCYTES # (AUTO) 1.1 10^3/uL (1.5-3.5); LYMPHOCYTES % (AUTO) 13.2 %; MEAN CORPUSCULAR HGB CONC 33.2 g/dL (32.0-36.0); MEAN CORPUSCULAR VOLUME 75.2 fL (81.0-99.0); MEAN PLATELET VOLUME 9.3 fL (7.9-10.8); MONOCYTES # (AUTO) 0.7 10^3/uL (0.0-1.0); NEUTROPHILS # (AUTO) 6.4 10^3/uL (1.5-6.6); NEUTROPHILS % (AUTO) 74.4 %; PLT - PLATELET COUNT 214 10^3/uL (130-450); RED BLOOD COUNT 3.98 10^6/uL (4.20-5.40); RED CELL DISTRIBUTION WIDTH 16.9 % (12.0-15.0); WHITE BLOOD COUNT 8.6 x10^3/uL (4.8-10.8)
[2018-04-21] MEDS: SODIUM CHLORIDE FLUSH 0.9% 10 ML SYRINGE IVP SCH ×4 (07:32→23:48)
[2018-04-21] MEDS: POLYETHYLENE GLYCOL 3350 17 GM PACKET PO SCH (07:32)
[2018-04-21] MEDS ORDERED: SODIUM CHLORIDE 0.9% 1,000 ML IV ONE (08:21)
[2018-04-21] MEDS: LACTATED RINGERS 1,000 ML IV ONE (08:21)
[2018-04-21] MEDS ORDERED: fentaNYL 100 MCG/2 ML VIAL IVP ONE (08:29)
[2018-04-21] MEDS ORDERED: LIDOCAINE-MPF 2% 5 ML VIAL IM ONE (08:29)
[2018-04-21] MEDS ORDERED: PROPOFOL 200 MG/20 ML VIAL IVP ONE (08:29)
[2018-04-21] MEDS ORDERED: BUPIVACAINE 0.5% PF 30 ML VIAL INFIL ONE (08:37)
--- NOTE | 2018-04-21 08:44 | OPERATIVE REPORT ---
Operative Report - General Admit Date: 04/18/18 Procedure Date: 04/21/18 Planned Procedure: Incision and drainage of complex perianal and perineal abscess Pre-Op Diagnosis: Complex perianal and perineal abscess Procedure Performed: Incision and drainage of complex perianal, perineal and pelvic abscess Post Op Diagnosis: Complex perianal, perineal and pelvic abscess - Procedure Note Primary Surgeon: Lorenzo Mccormick MD Anesthesia Provider: Lorenzo Earl MD Anesthesia Technique: General ET tube, Local (30 mL 1/2% marcaine) IV Fluids (mL): 300 Estimated Blood Loss (mL): 20 Drain/Tube Type: Other (The wound was packed with an entire bottle of 1 inch iodophor.) Complications: None. - Other Other Information/Narrative: OPERATIVE DESCRIPTION/REPORT: After verbal and written informed consent was obtained detailing the risks of infection, bleeding requiring transfusion with its risks, nerve injury, and , as well as the possibility of a colostomy, and after I met with the patient confirming the surgery, the patient was brought to the operative suite and placed supine on the operating table. Great care was taken to avoid pressure points to prevent pressure necrosis or nerve injury. Monitoring devices were applied along with TEDs and pneumatic compressive stockings (to prevent DVT). The patient received preoperative antibiotics for surgical prophylaxis. Dr. Lorenzo Earl sedated and anesthetized the patient for the entire procedure. The patient was then carefully placed in stirrups. The patient was prepped and draped in the usual sterile manner. A "time in" then confirmed that the patient was identified with 3 identifiers (name, date and medical record number), the history and physical was in the chart, the signed consent confirming the procedure was in the chart, the patient was in the correct position, the aforementioned prophylactic measures were in place or given, we had the correct personnel and equipment to complete the procedure and that anesthesia, surgery and nursing were given an opportunity to express any concerns. With the agreement of everyone in the room, we proceeded with the operation. A circular incision was made with Bovie electrocautery inferior and lateral to the left labia where the abscess had already pointed and started draining. Dissection was carried out down to the abscess cavity with return of thick boss pus. The Yankauer suction was then used to follow the abscess cavity anteriorly and posteriorly. Posteriorly the entire tip was brought to the skin on the cheek of the left buttock and a circular incision was made there again with Bovie electrocautery. The tract site was widened again using Bovie electrocautery so that they could admit my index finger easily. Digitally the abscess was broken down to allow proper drainage. In a similar manner the Yankauer tip was brought up anteriorly pointing in the inguinal crease just lateral to the left superior labia and a circular incision was made where again using Bovie electrocautery. In a similar manner this tract was widened to admit my index finger and the abscess was debrided digitally. An entire bottle of 1 inch iodophor gauze was obtained and a silk tie was placed in the midportion of this gauze. The wound was then packed starting at the middle packing upwards and downwards so that the tie could be used to remove the packing tomorrow from the middle incision. Hemostasis was noted to be present once the packing was complete. At this point a time out was performed that confirmed that all the counts were correct, the procedure that was performed, the blood loss, the urine output, the IV fluids administered, and the patients condition. Dressings were placed on the wound. Having tolerated the procedure well, the patient was subsequently extubated and taken to recovery room in good and stable condition. [employer] disclaimer: This document was created in part using voice recognition technology. Because of the inherent limitations of the system ([employer]'s [employer] user manual states that the licensee understands that speech recognition is a statistical process and that recognition errors are inherent in the process), occasional same sounding word substitutions and grammatical errors do occur and persist despite proofreading. Please read this document for context.
[2018-04-21] MEDS ORDERED: SODIUM CHLORIDE FLUSH 0.9% 10 ML SYRINGE IVP PRN (09:02)
[2018-04-21] MEDS: HYDROmorphone 1 MG/ML CARPUJECT ONE ×2 (09:17→09:34)
[2018-04-21] MEDS: CYCLOBENZAPRINE 10 MG TABLET PO SCH ×2 (10:09→20:13)
[2018-04-21] MEDS: METOPROLOL SUCCINATE 25 MG TABLET PO SCH (10:09)
[2018-04-21] MEDS: SACCHAROMYCES BOULARDII 250 MG CAPSULE PO SCH ×2 (10:09→16:21)
[2018-04-21] MEDS: oxyCODONE 5 MG TABLET PO PRN ×2 (10:09→14:53)
[2018-04-21] MEDS: OXYBUTYNIN 5MG TABLET PO SCH ×2 (10:10→20:13)
[2018-04-21] MEDS: ENOXAPARIN 40 MG/0.4 ML SYRINGE SUBQ SCH (10:10)
[2018-04-21] MEDS: HYDROmorphone 2 MG/ML VIAL IVP PRN ×3 (10:51→23:48)
[2018-04-21] MEDS: IBUPROFEN 600 MG TABLET PO PRN ×2 (10:55→18:04)
--- NOTE | 2018-04-21 11:40 | PROVIDER PROGRESS NOTE ---
Assessment/Plan - Problem List (1) Cellulitis of female genitalia Assessment/Plan: Continue antibiotics (2) Perirectal abscess Assessment/Plan: Packs in place post-op Continue with surgical care plan [facility] tomorrow (3) Pain syndrome, chronic Assessment/Plan: Continue pain meds and management (4) Anemia Qualifiers: Anemia type: iron deficiency Assessment/Plan: Start Ferrous Gluconate, also B12 im x1 then po (5) Hypothyroidism Assessment/Plan: Continue Synthroid replacement - Current Meds Current Meds: Current Medications Generic Name Dose Route Start Last Admin Trade Name Freq PRN Reason Stop Dose Admin Acetaminophen 650 mg 04/18/18 00:07 04/20/18 16:28 Tylenol PO 650 mg Q4HR PRN Administration Pain 1 to 4 Cyclobenzaprine HCl 10 mg 04/18/18 21:00 04/21/18 10:09 Flexeril PO 10 mg BID JUAN DIEGO Administration Enoxaparin Sodium 40 mg 04/18/18 09:00 04/21/18 10:10 Lovenox SUBQ 40 mg DAILY JUAN DIEGO Administration Hydromorphone HCl 2 mg 04/19/18 16:37 04/21/18 10:51 Dilaudid (Vial) IVP 2 mg Q2H PRN Administration PAIN Sodium Chloride 500 mls @ 0 mls/hr 04/20/18 22:00 04/21/18 08:11 Normal Saline 0.9% IV 0 mls/hr Q24H PRN Infusion TKO RATE TKO Ibuprofen 600 mg 04/21/18 09:07 04/21/18 10:55 Motrin PO 600 mg Q6HR PRN Administration PAIN Levothyroxine Sodium 100 mcg 04/19/18 07:00 04/21/18 06:11 Synthroid PO 100 mcg QDAC JUAN DIEGO Administration Metoprolol Succinate 25 mg 04/20/18 09:00 04/21/18 10:09 Toprol Xl PO Not Given DAILY JUAN DIEGO Ondansetron HCl 4 mg 04/18/18 00:07 04/18/18 08:05 Zofran Inj IVP 4 mg Q6HR PRN Administration Nausea / Vomiting Ondansetron HCl 4 mg 04/18/18 00:07 04/20/18 09:19 Zofran Odt TL 4 mg Q6HR PRN Administration Nausea / Vomiting Oxybutynin Chloride 5 mg 04/18/18 21:00 04/21/18 10:10 Ditropan PO 5 mg BID JUAN DIEGO Administration Oxycodone HCl 5 mg 04/18/18 00:07 04/21/18 10:09 Roxicodone PO 5 mg Q4HR PRN Administration Pain 5 to 7 Polyethylene Glycol 17 gm 04/18/18 09:00 04/21/18 07:32 Miralax PO Not Given DAILY JUAN DIEGO Promethazine HCl 25 mg 04/18/18 16:38 04/20/18 17:24 Phenergan PO 25 mg TID PRN Administration Nausea / Vomiting Saccharomyces Boulardii 250 mg 04/19/18 17:00 04/21/18 10:09 Florastor PO 250 mg BIDWM JUAN DIEGO Administration Sodium Biphosphate/Sodium Phosphate 133 ml 04/21/18 06:00 04/21/18 06:16 Fleets Saline Enema RC 04/21/18 23:59 133 ml ONCE JUAN DIEGO Administration Sodium Chloride 10 ml 04/18/18 00:07 04/20/18 14:49 Normal Saline Flush 0.9% IVP 20 ml PRN PRN Administration NEEDED PER PROVIDER ORDERS Sodium Chloride 10 ml 04/18/18 01:00 04/21/18 07:32 Normal Saline Flush 0.9% IVP Not Given 0100,0900,1700 JUAN DIEGO - Lab Result Fish Bone Diagrams: 04/21/18 05:55 04/20/18 05:25 - Additional Planning My Orders: My Active Orders 04/22/18 05:00 CBC - COMP BLD CT W/AUTO DIFF [HEME] DAILYLAB Subjective - Subjective Patient Reports: Resting Comfortably Nursing Reports: Other (Had I&D surgery this am) Objective Vital Signs: Vital Signs - 24 hr 04/20/18 04/20/18 04/20/18 13:00 15:42 20:26 Temperature 36.7 C 36.6 C 36.7 C Heart Rate [ 82 72 70 Brachial] Respiratory 20 20 20 Rate Blood Pressure Blood Pressure [Left Brachial artery] Blood Pressure 114/49 L 111/58 L 108/63 [Right Brachial artery] O2 Saturation 99 97 100 04/21/18 04/21/18 04/21/18 06:00 07:51 08:49 Temperature 37.1 C 36.9 C 36.7 C Heart Rate [ 81 88 Brachial] Respiratory 18 18 21 Rate Blood Pressure 110/57 L Blood Pressure [Left Brachial artery] Blood Pressure 108/85 H 127/61 [Right Brachial artery] O2 Saturation 99 99 100 04/21/18 04/21/18 04/21/18 08:55 09:00 09:05 Temperature Heart Rate [ Brachial] Respiratory 16 22 21 Rate Blood Pressure 105/51 L 102/47 L 97/50 L Blood Pressure [Left Brachial artery] Blood Pressure [Right Brachial artery] O2 Saturation 100 100 100 04/21/18 04/21/18 04/21/18 09:10 09:15 09:20 Temperature 36.6 C Heart Rate [ Brachial] Respiratory 18 15 19 Rate Blood Pressure 108/56 L 114/51 L 113/59 L Blood Pressure [Left Brachial artery] Blood Pressure [Right Brachial artery] O2 Saturation 100 100 100 04/21/18 04/21/18 04/21/18 09:25 09:30 09:35 Temperature Heart Rate [ Brachial] Respiratory 92 H 89 H 13 Rate Blood Pressure 113/55 L 106/62 126/50 L Blood Pressure [Left Brachial artery] Blood Pressure [Right Brachial artery] O2 Saturation 99 100 100 04/21/18 04/21/18 04/21/18 09:40 09:45 10:15 Temperature 36.5 C 37.8 C H 36.7 C Heart Rate [ 81 78 Brachial] Respiratory 20 16 18 Rate Blood Pressure 98/47 L Blood Pressure 110/56 L 103/58 L [Left Brachial artery] Blood Pressure [Right Brachial artery] O2 Saturation 100 100 100 Oxygen O2 Source Room air I&O (Last 24 Hrs): Intake and Output Totals x24h 04/19/18 04/20/18 04/21/18 23:59 23:59 23:59 Intake Total 2647 2970.000 357.000 Balance 2647 2970.000 357.000 General: Alert, Oriented x3 HEENT: Mucous membr. moist/pink Neck: Supple Neuro: Non Focal Cardiovascular: Regular rate Respiratory: No respiratory distress, Breath sounds nml Abdomen: Soft Extremities: No edema - Results Results: Laboratory Results WBC 8.6 x10^3/uL (4.8-10.8) 04/21/18 05:55 RBC 3.98 10^6/uL (4.20-5.40) L 04/21/18 05:55 Hgb 10.0 g/dL (12.0-16.0) L 04/21/18 05:55 Hct 30.0 % (37.0-47.0) L 04/21/18 05:55 MCV 75.2 fL (81.0-99.0) L 04/21/18 05:55 MCH 25.0 pg (27.0-31.0) L 04/21/18 05:55 MCHC 33.2 g/dL (32.0-36.0) 04/21/18 05:55 RDW 16.9 % (12.0-15.0) H 04/21/18 05:55 Plt Count 214 10^3/uL (130-450) 04/21/18 05:55 MPV 9.3 fL (7.9-10.8) 04/21/18 05:55 Reticulocyte % (Auto) 2.40 % (0.5-2.3) H 04/18/18 05:53 Neut # (Auto) 6.4 10^3/uL (1.5-6.6) 04/21/18 05:55 Lymph # (Auto) 1.1 10^3/uL (1.5-3.5) L 04/21/18 05:55 [place] # (Auto) 0.7 10^3/uL (0.0-1.0) 04/21/18 05:55 Eos # (Auto) 0.3 10^3/uL (0.0-0.7) 04/21/18 05:55 Baso # (Auto) 0.0 10^3/uL (0.0-0.1) 04/21/18 05:55 Absolute Nucleated RBC 0.00 x10^3/uL 04/21/18 05:55 Total Counted 100 04/17/18 21:15 Band Neuts % (Manual) 10 % (0-10) 04/17/18 21:15 Abnorm Lymph % (Manual) 0 % 04/17/18 21:15 Nucleated RBC % 0.0 /100WBC 04/21/18 05:55 Neutrophils # (Manual) 17.5 10^3/uL (1.5-6.6) H 04/17/18 21:15 Lymphocytes # (Manual) 2.4 10^3/uL (1.5-3.5) 04/17/18 21:15 Monocytes # (Manual) 0.2 10^3/uL (0.0-1.0) 04/17/18 21:15 Eosinophils # (Manual) 0.2 10^3/uL (0-0.7) 04/17/18 21:15 Basophils # (Manual) 0.0 10^3/uL (0-0.1) 04/17/18 21:15 Differential Comment MANUAL DIFFERENTIAL 04/17/18 21:15 Manual Slide Review Indicated 04/17/18 21:15 WBC Morphology NORMAL APPEARANCE (NORMAL) 04/17/18 21:15 Platelet Estimate NORMAL (130-450,000) (NORMAL) 04/17/18 21:15 Platelet Morphology NORMAL APPEARANCE (NORMAL) 04/17/18 21:15 RBC Morph Micro Appear NORMAL APPEARANCE (NORMAL) 04/17/18 21:15 Absolute Retic 0.105 10^6/uL (0.020-0.110) 04/18/18 05:53 Sodium 137 mmol/L (135-145) 04/20/18 05:25 Potassium 3.5 mmol/L (3.5-5.0) 04/20/18 05:25 Chloride 106 mmol/L (101-111) 04/20/18 05:25 Carbon Dioxide 24 mmol/L (21-32) 04/20/18 05:25 Anion Gap 7.0 (6-13) 04/20/18 05:25 BUN 8 mg/dL (6-20) 04/20/18 05:25 Creatinine 0.8 mg/dL (0.4-1.0) 04/20/18 05:25 Estimated GFR (MDRD) 79 (>89) L 04/20/18 05:25 Glucose 99 mg/dL (70-100) 04/20/18 05:25 Lactic Acid 1.0 mmol/L (0.5-2.2) 04/17/18 21:15 Calcium 8.2 mg/dL (8.5-10.3) L 04/20/18 05:25 Magnesium 1.8 mg/dL (1.7-2.8) 04/17/18 21:15 Iron 22 ug/dL (28-170) L 04/18/18 05:53 TIBC 374 ug/dL (250-450) 04/18/18 05:53 % Saturation 6 % (20-50) L 04/18/18 05:53 Transferrin 267 mg/dL (192-382) 04/18/18 05:53 Ferritin 22.8 ng/mL (11.0-306.8) 04/18/18 05:53 Total Bilirubin 1.0 mg/dL (0.2-1.0) 04/17/18 21:15 AST 15 IU/L (10-42) 04/17/18 21:15 ALT 13 IU/L (10-60) 04/17/18 21:15 Alkaline Phosphatase 92 IU/L (42-121) 04/17/18 21:15 Lactate Dehydrogenase 107 IU/L (91-225) 04/18/18 05:53 Total Protein 7.4 g/dL (6.7-8.2) 04/17/18 21:15 Albumin 3.3 g/dL (3.2-5.5) 04/17/18 21:15 Globulin 4.1 g/dL (2.1-4.2) 04/17/18 21:15 Albumin/Globulin Ratio 0.8 (1.0-2.2) L 04/17/18 21:15 Lipase 23 U/L (22-51) 04/17/18 21:15 Vitamin B12 206 pg/mL (180-914) 04/18/18 05:53 Serum HCG, Qual NEGATIVE 04/17/18 21:15 Urine Color YELLOW 04/17/18 23:05 Urine Clarity CLEAR (CLEAR) 04/17/18 23:05 Urine pH 5.5 PH (5.0-7.5) 04/17/18 23:05 Ur Specific [place] 1.015 (1.002-1.030) 04/17/18 23:05 Urine Protein NEGATIVE mg/dL (NEGATIVE) 04/17/18 23:05 Urine Glucose (UA) NEGATIVE mg/dL (NEGATIVE) 04/17/18 23:05 Urine Ketones TRACE mg/dL (NEGATIVE) 04/17/18 23:05 Urine Occult Blood NEGATIVE (NEGATIVE) 04/17/18 23:05 Urine Nitrite POSITIVE (NEGATIVE) H 04/17/18 23:05 Urine Bilirubin NEGATIVE (NEGATIVE) 04/17/18 23:05 Urine Urobilinogen 1 (NORMAL) E.U./dL (NORMAL) 04/17/18 23:05 Ur Leukocyte Esterase NEGATIVE (NEGATIVE) 04/17/18 23:05 Urine RBC None Seen /HPF (0-5) 04/17/18 23:05 Urine WBC 0-3 /HPF (0-5) 04/17/18 23:05 Ur Squamous Epith Cells MOD Squamous (<= Few) H 04/17/18 23:05 Urine Bacteria Many /HPF (None Seen) H 04/17/18 23:05 Ur Microscopic Review INDICATED 04/17/18 23:05 Urine Culture Comments NOT INDICATED 04/17/18 23:05
[2018-04-21] MEDS: PIPERACILLIN/TAZOBACTAM 3.375 GM in SODIUM CHLORIDE 0.9% MINIBAG 100 ML IV SCH ×3 (13:17→23:48)
[2018-04-21] MEDS: ONDANSETRON 4 MG/2 ML VIAL IVP PRN ×2 (13:18→16:56)
[2018-04-21] MEDS: ACETAMINOPHEN 325 MG TABLET PO PRN (14:53)
[2018-04-21] MEDS ORDERED: CYANOCOBALAMIN 1,000 MCG/ML VIAL IM SCH (15:00)
[2018-04-21] MEDS: MULTIVITAMIN W/MINERALS TABLET PO SCH (16:21)
[2018-04-21] MEDS: FERROUS GLUCONATE 324 MG TABLET PO SCH (16:21)
[2018-04-21] MEDS ORDERED: SODIUM CHLORIDE FLUSH 0.9% 10 ML SYRINGE IVP SCH (17:00)
[2018-04-21] MEDS ORDERED: SODIUM CHLORIDE 0.9% 500 ML IV SCH (18:58)
[2018-04-22] MEDS: PIPERACILLIN/TAZOBACTAM 3.375 GM in SODIUM CHLORIDE 0.9% MINIBAG 100 ML IV SCH (05:43)
[2018-04-22] MEDS: SODIUM CHLORIDE FLUSH 0.9% 10 ML SYRINGE IVP PRN (05:43)
[2018-04-22] MEDS: metroNIDAZOLE 250 MG TABLET PO SCH ×2 (05:43→14:43)
[2018-04-22] MEDS: HYDROmorphone 2 MG/ML VIAL IVP PRN (05:45)
[2018-04-22 05:57] LABS: BASOPHILS % (AUTO) 0.3 %; EOSINOPHILS # (AUTO) 0.3 10^3/uL (0.0-0.7); EOSINOPHILS % (AUTO) 3.4 %; HGB - HEMOGLOBIN 10.6 g/dL (12.0-16.0); LYMPHOCYTES # (AUTO) 1.4 10^3/uL (1.5-3.5); LYMPHOCYTES % (AUTO) 14.1 %; MEAN CORPUSCULAR HEMOGLOBIN 25.3 pg (27.0-31.0); MEAN CORPUSCULAR HGB CONC 33.5 g/dL (32.0-36.0); MEAN CORPUSCULAR VOLUME 75.6 fL (81.0-99.0); MEAN PLATELET VOLUME 9.5 fL (7.9-10.8); MONOCYTES # (AUTO) 0.8 10^3/uL (0.0-1.0); MONOCYTES % (AUTO) 8.1 %; NEUTROPHILS # (AUTO) 7.5 10^3/uL (1.5-6.6); NEUTROPHILS % (AUTO) 74.1 %; PLT - PLATELET COUNT 216 10^3/uL (130-450); RED BLOOD COUNT 4.19 10^6/uL (4.20-5.40); RED CELL DISTRIBUTION WIDTH 17.4 % (12.0-15.0); WHITE BLOOD COUNT 10.2 x10^3/uL (4.8-10.8)
[2018-04-22] MEDS ORDERED: CIPROFLOXACIN 250 MG TABLET PO SCH ×2 (06:00)
[2018-04-22] MEDS: LEVOTHYROXINE 100 MCG TABLET PO SCH (06:09)
[2018-04-22] MEDS: oxyCODONE 5 MG TABLET PO PRN ×3 (07:26→17:18)
[2018-04-22] MEDS ORDERED: CYANOCOBALAMIN 500 MCG TABLET PO SCH (08:00)
[2018-04-22] MEDS: HYDROcod/ACETAM 7.5 MG/325 MG TABLET PO PRN ×2 (09:31→19:03)
--- NOTE | 2018-04-22 10:40 | PROVIDER PROGRESS NOTE ---
Assessment/Plan - Problem List (1) Perirectal abscess Assessment/Plan: Labial/perineal/perirectal abscess: clinically improving following I & D; cellulitis resolving as well; Rec: drain removed today; sitz baths TID, ok for d /c home today on oral antibiotics; f/u with Dr. Mccormick this coming week (4-5 days). (2) Cellulitis of female genitalia Assessment/Plan: Resolving; PLan: see plan for perirectal abscess above. (3) Constipation Qualifiers: Constipation type: chronic idiopathic constipation Qualified Code(s): K59.04 - Chronic idiopathic constipation Assessment/Plan: likely to be exacerbated by narcotic analgesics; Rec: daily Miralax; adjust dose as needed. - Current Meds Current Meds: Current Medications Generic Name Dose Route Start Last Admin Trade Name Freq PRN Reason Stop Dose Admin Acetaminophen 650 mg 04/18/18 00:07 04/21/18 14:53 Tylenol PO 650 mg Q4HR PRN Administration Pain 1 to 4 Hydrocodone Bitart/Acetaminophen 1 tab 04/22/18 09:11 04/22/18 09:31 [place] 7.5/325 PO 1 tab Q4HR PRN Administration PAIN Ciprofloxacin 250 mg 04/22/18 06:00 04/22/18 05:43 Cipro PO 250 mg BID JUAN DIEGO Administration Cyclobenzaprine HCl 10 mg 04/18/18 21:00 04/21/18 20:13 Flexeril PO 10 mg BID JUAN DIEGO Administration Enoxaparin Sodium 40 mg 04/18/18 09:00 04/21/18 10:10 Lovenox SUBQ 40 mg DAILY JUAN DIEGO Administration Ferrous Gluconate 324 mg 04/21/18 17:00 04/21/18 16:21 [place]ergon PO 324 mg DAILYWM JUAN DIEGO Administration Hydromorphone HCl 2 mg 04/19/18 16:37 04/21/18 23:48 Dilaudid (Vial) IVP 2 mg Q2H PRN Administration PAIN Sodium Chloride 500 mls @ 0 mls/hr 04/20/18 22:00 04/21/18 11:30 Normal Saline 0.9% IV 20 mls/hr Q24H PRN Infusion TKO RATE TKO Ibuprofen 600 mg 04/21/18 09:07 04/21/18 18:04 Motrin PO 600 mg Q6HR PRN Administration PAIN Levothyroxine Sodium 100 mcg 04/19/18 07:00 04/22/18 06:09 Synthroid PO 100 mcg QDAC JUAN DIEGO Administration Metoprolol Succinate 25 mg 04/20/18 09:00 04/21/18 10:09 Toprol Xl PO Not Given DAILY JUAN DIEGO Metronidazole 500 mg 04/22/18 06:00 04/22/18 05:43 Flagyl PO 04/26/18 05:59 500 mg Q8H JUAN DIEGO Administration Multivitamins/Minerals 1 tab 04/21/18 15:00 04/21/18 16:21 Theragran M PO 1 tab DAILYWM JUAN DIEGO Administration Ondansetron HCl 4 mg 04/18/18 00:07 04/21/18 16:56 Zofran Inj IVP 4 mg Q6HR PRN Administration Nausea / Vomiting Ondansetron HCl 4 mg 04/18/18 00:07 04/20/18 09:19 Zofran Odt TL 4 mg Q6HR PRN Administration Nausea / Vomiting Oxybutynin Chloride 5 mg 04/18/18 21:00 04/21/18 20:13 Ditropan PO 5 mg BID JUAN DIEGO Administration Oxycodone HCl 5 mg 04/18/18 00:07 04/22/18 07:26 Roxicodone PO 5 mg Q4HR PRN Administration Pain 5 to 7 Polyethylene Glycol 17 gm 04/18/18 09:00 04/21/18 07:32 Miralax PO Not Given DAILY JUAN DIEGO Promethazine HCl 25 mg 04/18/18 16:38 04/20/18 17:24 Phenergan PO 25 mg TID PRN Administration Nausea / Vomiting Saccharomyces Boulardii 250 mg 04/19/18 17:00 04/21/18 16:21 Florastor PO 250 mg BIDWM JUAN DIEGO Administration Sodium Chloride 10 ml 04/18/18 00:07 04/22/18 05:43 Normal Saline Flush 0.9% IVP 10 ml PRN PRN Administration NEEDED PER PROVIDER ORDERS Sodium Chloride 10 ml 04/18/18 01:00 04/21/18 23:48 Normal Saline Flush 0.9% IVP 10 ml 0100,0900,1700 JUAN DIEGO Administration - Lab Result Fish Bone Diagrams: 04/22/18 05:19 04/20/18 05:25 Subjective - Subjective Patient Reports: Feeling Better (perineal pain improving; wants to go home; able to void and tolerate oral intake well.) Objective Vital Signs: Vital Signs - 24 hr 04/21/18 04/21/18 04/21/18 12:15 14:15 15:15 Temperature 36.6 C 36.6 C 36.7 C Heart Rate [ 86 89 86 Brachial] Respiratory 18 18 18 Rate Blood Pressure 109/57 L 96/48 L 97/48 L [Left Brachial artery] Blood Pressure [Right Brachial artery] O2 Saturation 99 99 99 04/21/18 04/21/18 04/22/18 21:02 23:46 05:39 Temperature 36.7 C 36.6 C 36.8 C Heart Rate [ 85 97 92 Brachial] Respiratory 18 Rate Blood Pressure 104/52 L [Left Brachial artery] Blood Pressure 102/56 L 99/41 L [Right Brachial artery] O2 Saturation 100 99 100 04/22/18 07:53 Temperature Heart Rate [ Brachial] Respiratory Rate Blood Pressure 103/56 L [Left Brachial artery] Blood Pressure [Right Brachial artery] O2 Saturation Oxygen O2 Source Room air I&O (Last 24 Hrs): Intake and Output Totals x24h 04/20/18 04/21/18 04/22/18 23:59 23:59 23:59 Intake Total 2970.000 1807.000 440 Balance 2970.000 1807.000 440 General: Alert, Oriented x3, Cooperative Abdomen: Soft, No tenderness Genitourinary: No Bleeding, No Discharge Skin: No rashes Comments/Notes: perineal area inspected: no erythema, mild soft tissue swelling; drain removed after sitz bath and premedication with narcotics. - Results Results: Laboratory Results WBC 10.2 x10^3/uL (4.8-10.8) 04/22/18 05:19 RBC 4.19 10^6/uL (4.20-5.40) L 04/22/18 05:19 Hgb 10.6 g/dL (12.0-16.0) L 04/22/18 05:19 Hct 31.6 % (37.0-47.0) L 04/22/18 05:19 MCV 75.6 fL (81.0-99.0) L 04/22/18 05:19 MCH 25.3 pg (27.0-31.0) L 04/22/18 05:19 MCHC 33.5 g/dL (32.0-36.0) 04/22/18 05:19 RDW 17.4 % (12.0-15.0) H 04/22/18 05:19 Plt Count 216 10^3/uL (130-450) 04/22/18 05:19 MPV 9.5 fL (7.9-10.8) 04/22/18 05:19 Reticulocyte % (Auto) 2.40 % (0.5-2.3) H 04/18/18 05:53 Neut # (Auto) 7.5 10^3/uL (1.5-6.6) H 04/22/18 05:19 Lymph # (Auto) 1.4 10^3/uL (1.5-3.5) L 04/22/18 05:19 [place] # (Auto) 0.8 10^3/uL (0.0-1.0) 04/22/18 05:19 Eos # (Auto) 0.3 10^3/uL (0.0-0.7) 04/22/18 05:19 Baso # (Auto) 0.0 10^3/uL (0.0-0.1) 04/22/18 05:19 Absolute Nucleated RBC 0.00 x10^3/uL 04/22/18 05:19 Total Counted 100 04/17/18 21:15 Band Neuts % (Manual) 10 % (0-10) 04/17/18 21:15 Abnorm Lymph % (Manual) 0 % 04/17/18 21:15 Nucleated RBC % 0.0 /100WBC 04/22/18 05:19 Neutrophils # (Manual) 17.5 10^3/uL (1.5-6.6) H 04/17/18 21:15 Lymphocytes # (Manual) 2.4 10^3/uL (1.5-3.5) 04/17/18 21:15 Monocytes # (Manual) 0.2 10^3/uL (0.0-1.0) 04/17/18 21:15 Eosinophils # (Manual) 0.2 10^3/uL (0-0.7) 04/17/18 21:15 Basophils # (Manual) 0.0 10^3/uL (0-0.1) 04/17/18 21:15 Differential Comment MANUAL DIFFERENTIAL 04/17/18 21:15 Manual Slide Review Indicated 04/17/18 21:15 WBC Morphology NORMAL APPEARANCE (NORMAL) 04/17/18 21:15 Platelet Estimate NORMAL (130-450,000) (NORMAL) 04/17/18 21:15 Platelet Morphology NORMAL APPEARANCE (NORMAL) 04/17/18 21:15 RBC Morph Micro Appear NORMAL APPEARANCE (NORMAL) 04/17/18 21:15 Absolute Retic 0.105 10^6/uL (0.020-0.110) 04/18/18 05:53 Sodium 137 mmol/L (135-145) 04/20/18 05:25 Potassium 3.5 mmol/L (3.5-5.0) 04/20/18 05:25 Chloride 106 mmol/L (101-111) 04/20/18 05:25 Carbon Dioxide 24 mmol/L (21-32) 04/20/18 05:25 Anion Gap 7.0 (6-13) 04/20/18 05:25 BUN 8 mg/dL (6-20) 04/20/18 05:25 Creatinine 0.8 mg/dL (0.4-1.0) 04/20/18 05:25 Estimated GFR (MDRD) 79 (>89) L 04/20/18 05:25 Glucose 99 mg/dL (70-100) 04/20/18 05:25 Lactic Acid 1.0 mmol/L (0.5-2.2) 04/17/18 21:15 Calcium 8.2 mg/dL (8.5-10.3) L 04/20/18 05:25 Magnesium 1.8 mg/dL (1.7-2.8) 04/17/18 21:15 Iron 22 ug/dL (28-170) L 04/18/18 05:53 TIBC 374 ug/dL (250-450) 04/18/18 05:53 % Saturation 6 % (20-50) L 04/18/18 05:53 Transferrin 267 mg/dL (192-382) 04/18/18 05:53 Ferritin 22.8 ng/mL (11.0-306.8) 04/18/18 05:53 Total Bilirubin 1.0 mg/dL (0.2-1.0) 04/17/18 21:15 AST 15 IU/L (10-42) 04/17/18 21:15 ALT 13 IU/L (10-60) 04/17/18 21:15 Alkaline Phosphatase 92 IU/L (42-121) 04/17/18 21:15 Lactate Dehydrogenase 107 IU/L (91-225) 04/18/18 05:53 Total Protein 7.4 g/dL (6.7-8.2) 04/17/18 21:15 Albumin 3.3 g/dL (3.2-5.5) 04/17/18 21:15 Globulin 4.1 g/dL (2.1-4.2) 04/17/18 21:15 Albumin/Globulin Ratio 0.8 (1.0-2.2) L 04/17/18 21:15 Lipase 23 U/L (22-51) 04/17/18 21:15 Vitamin B12 206 pg/mL (180-914) 04/18/18 05:53 Serum HCG, Qual NEGATIVE 04/17/18 21:15 Urine Color YELLOW 04/17/18 23:05 Urine Clarity CLEAR (CLEAR) 04/17/18 23:05 Urine pH 5.5 PH (5.0-7.5) 04/17/18 23:05 Ur Specific [place] 1.015 (1.002-1.030) 04/17/18 23:05 Urine Protein NEGATIVE mg/dL (NEGATIVE) 04/17/18 23:05 Urine Glucose (UA) NEGATIVE mg/dL (NEGATIVE) 04/17/18 23:05 Urine Ketones TRACE mg/dL (NEGATIVE) 04/17/18 23:05 Urine Occult Blood NEGATIVE (NEGATIVE) 04/17/18 23:05 Urine Nitrite POSITIVE (NEGATIVE) H 04/17/18 23:05 Urine Bilirubin NEGATIVE (NEGATIVE) 04/17/18 23:05 Urine Urobilinogen 1 (NORMAL) E.U./dL (NORMAL) 04/17/18 23:05 Ur Leukocyte Esterase NEGATIVE (NEGATIVE) 04/17/18 23:05 Urine RBC None Seen /HPF (0-5) 04/17/18 23:05 Urine WBC 0-3 /HPF (0-5) 04/17/18 23:05 Ur Squamous Epith Cells MOD Squamous (<= Few) H 04/17/18 23:05 Urine Bacteria Many /HPF (None Seen) H 04/17/18 23:05 Ur Microscopic Review INDICATED 04/17/18 23:05 Urine Culture Comments NOT INDICATED 04/17/18 23:05 ABX Reporting Has patient been on IV antibiotics over the past 48 hours?: Yes
[2018-04-22] MEDS ORDERED: POLYETHYLENE GLYCOL 3350 17 GM PACKET PO SCH (10:46)
--- NOTE | 2018-04-22 10:53 | Discharge Plan ---
Discharge Plan Disposition: Home, Self Care Condition: Stable Prescriptions: HYDROcodone/ACET 7.5/325 [[place] 7.5/325] 1 tab PO Q4HR PRN #5 tablet PRN Reason: Pain B Complex with Vitamin C [Vitamin B-Complex with Vit C] 1 each PO DAILY #30 capsule Ciprofloxacin [Cipro] 250 mg PO BID #10 tablet Ferrous Gluconate 324 mg PO BID #60 tablet metroNIDAZOLE [Flagyl] 500 mg PO TID #30 tablet Multivitamin W/Minerals [Theragran M] 1 tab PO DAILYWM #30 tablet Diet: Regular Activity Restrictions: Activity as Tolerated Shower Restrictions: No Driving Restrictions: No Weight Bearing: Full Weight Instruction Topics: Sitz Bath Additional Instructions or Follow Up instructions: Resume all your pre-hospital medications. Take the 2 different antibiotics, Cipro and Flagyl, until all the pills are done. A prescription for pain medication, Vicodin was prescribed for you. New vitamins and iron replacement were also prescribed for you. Take a sitz bath 1-3 times a day, as advised by the surgeon. See Dr Lorenzo Mccormick in his office in follow-up in 1 week. Call the office to make an appointment: . Come back to the ER if you have concerns or worsening symptoms. No Smoking: If you smoke, Please STOP! Call for help. Follow-up with: Yisel Melendez ARNP [Primary Care Provider] -
[2018-04-22] MEDS: METOPROLOL SUCCINATE 25 MG TABLET PO SCH (11:01)
[2018-04-22] MEDS: FERROUS GLUCONATE 324 MG TABLET PO SCH (11:14)
[2018-04-22] MEDS: MULTIVITAMIN W/MINERALS TABLET PO SCH (11:14)
[2018-04-22] MEDS: CYANOCOBALAMIN 500 MCG TABLET PO SCH ×2 (11:14→11:18)
[2018-04-22] MEDS: ENOXAPARIN 40 MG/0.4 ML SYRINGE SUBQ SCH (11:15)
[2018-04-22] MEDS: OXYBUTYNIN 5MG TABLET PO SCH (11:15)
[2018-04-22] MEDS: IBUPROFEN 600 MG TABLET PO PRN (11:15)
[2018-04-22] MEDS: SACCHAROMYCES BOULARDII 250 MG CAPSULE PO SCH ×2 (11:15→17:18)
[2018-04-22] MEDS: CYCLOBENZAPRINE 10 MG TABLET PO SCH (11:41)
[2018-04-22] MEDS: SODIUM CHLORIDE FLUSH 0.9% 10 ML SYRINGE IVP SCH (17:14)
[2018-04-22 18:35] VITALS: BP 132/75
--- NOTE | 2018-04-23 16:44 | DISCHARGE SUMMARY ---
Physician: Rosey Bhatt MD DATE OF ADMISSION: 04/18/2018 DATE OF DISCHARGE: 04/22/2018 HISTORY OF PRESENT ILLNESS: This is a 42-year-old white female with history of hypothyroidism on Synthroid, obesity with prior gastric surgery, fibromyalgia with chronic pain syndrome, remote narcotic pain abuser who has weaned herself off last year. The patient presented after developing swollen, painful and red labia which occurred after she worked in an environment with certain pants that were usually not worn creating sweating. She was admitted with presumed cellulitis of her labia and the emergency room reached out to METHODS ENGINEER, who advised admission on the hospitalist service. HOSPITAL COURSE AND DISCHARGE DIAGNOSES 1. Cellulitis of female genitalia. The patient was placed on empiric IV antibiotics throughout this course. The Inserter Operator, Dr. Veronica, requested that after CT imaging, done in the emergency room, be repeated with MRI for better localization of the pathology. His evaluation found that she had an anovaginal fistula and 3 perirectal abscesses, pointing toward the vagina. He felt that this was out of the scope of WORKERS COMPENSATION EXAMINER and advised general surgery consult. 2. Perirectal abscesses. The patient had 3 abscesses. She was seen in consult by Dr. Mccormick, who felt that the patient needed transfer for higher level of care and combined surgical management from general surgery and gynecology. Hospitalist tried to get the patient accepted at [facility] where she was denied because the problem was felt too extensive for their management. Hospitalist also tried to get her accepted at [facility], on the surgical service and she was denied acceptance. Their surgeon spoke to our surgeon who indicated that the surgery should be done here. The patient remained here for surgery and postop care. The abscesses were drained on 2017 and packed. The packs were removed on 04/22/2018 and general surgery advised that she could be discharged home with p.o. antibiotics and with sitz baths to be done for a week. Followup should also be with Dr. Mccormick in 1 week in his office. 3. Pain syndrome, chronic. The patient's chronic pain medications were continued while here. She required additional Vicodin for postop pain and was discharged with 5 tablets of this. 4. Anemia. B12 level and iron values were low and she was started on ferrous gluconate as well as B12 replacement at discharge. 5. Hypothyroidism. The patient's Synthroid was continued throughout this hospital course. 6. Hypotension. The day after admission her BP was low. She had been given the reconciled dose of Metoprolol, for diagnosis of SVT, per the patient. She admitted that she actually only took Metoprolol sporadically, not daily. Therefore the dose of Metoprolol 75 mg in a.m. and 100 mg in p.m. was significantly decreased to Toprol XL 12.5 mg daily and she was discharged with this change. ALLERGIES: NO KNOWN ALLERGIES. DISCHARGE MEDICATIONS 1. [place] 7.5/325 mg q. 4 hours p.r.n., 5 tablets. 2. B complex with vitamin C 1 tablet daily. 3. Cipro 250 mg b.i.d. for an additional 5 days. 4. Flexeril 10 mg p.o. b.i.d. 5. Iron gluconate 324 mg b.i.d. 6. Vistaril 25 mg b.i.d. 7. Levothyroxine 100 mcg daily. 8. Loratadine 10 mg p.r.n. 9. Her Metoprolol tartrate 75 mg in am, 100 mg in pm was stopped. The patient' s actual dose of this was lower in that she indicated noncompliance with this schedule. The dose was decreased substantially while here and change to Toprol- XL 25 mg 1/2 tablet daily. 10. Flagyl 500 mg t.i.d. for an additional 5 days. 11. Multivitamin with minerals daily. 12. Ditropan 5 mg b.i.d. 13. Phenergan 25 mg t.i.d. p.r.n. 14. Chantix 1 mg daily. 15. Vitamin E with lidocaine and aloe topically. PHYSICAL EXAMINATION GENERAL: Edentulous, obese white female, in no distress. VITAL SIGNS: Blood pressure 111/55, pulse of 92, afebrile, room air saturation 100%. HEENT: Oral mucosa moist and mouth completely edentulous. NECK: Without JVD or carotid bruits. CHEST: Clear. HEART: Sounds are normal. ABDOMEN: Obese, nontender. EXTREMITIES: No clubbing, cyanosis, or edema. NEUROLOGIC: Intact. FOLLOWUP: With general surgeon, Dr. Mccormick in 1 week, and with her PCP in 1- 2 weeks. CODE STATUS: FULL CODE. Time required to complete this entire discharge, chart review, medication orders , dictation: 60 minutes. cc: TAMRA Simpson TD: 04/22/2018 17:37 MTDD
== END 2018-04-22 19:10 | disposition home or self-care (01) | DRG 580 ==
LOC: ED 19:36 → MS2 04-18 00:07
PROVIDERS: ADMIT Specialist; ATTEND Internal Medicine
PROC: 0D9QXZZ Drainage of Anus, External Approach (ICD-10-PCS; 2018-04-21)
PROC: 0H99XZZ Drainage of Perineum Skin, External Approach (ICD-10-PCS; principal; 2018-04-21 07:45)
DX: L02.215 Cutaneous abscess of perineum (principal); K61.0 Anal abscess; Z68.41 Body mass index [BMI] 40.0-44.9, adult; E87.1 Hypo-osmolality and hyponatremia; I47.1 Supraventricular tachycardia; G45.9 Transient cerebral ischemic attack, unspecified; M79.7 Fibromyalgia; Z72.0 Tobacco use; G89.4 Chronic pain syndrome; E03.9 Hypothyroidism, unspecified; E66.01 Morbid (severe) obesity due to excess calories; E87.6 Hypokalemia; E86.0 Dehydration; D50.9 Iron deficiency anemia, unspecified; K59.04 Chronic idiopathic constipation
CPT/HCPCS: 36415; 70551; 72193; 72197; 80048; 80053; 81001; 81003; 82607; 82728; 83540; 83605; 83615; 83690; 83735; 84466; 84703; 85025; 85044; 87040; 87086; 87640; 93306; 93880; 96365; 96368; 96375; 96376; 99284; 99285; 99406

== ENCOUNTER 2018-06-06 09:32 | Emergency (ER) | payer MEDICAID ==
[2018-06-06] MEDS ORDERED: SODIUM CHLORIDE 0.9% 1,000 ML IV ONE (10:08)
[2018-06-06] MEDS ORDERED: ONDANSETRON 4 MG/2 ML VIAL IVP STA (10:16)
[2018-06-06] MEDS ORDERED: HYDROmorphone 1 MG/ML CARPUJECT IVP STA ×2 (10:16→13:08)
[2018-06-06] MEDS ORDERED: AMPICILLIN/SULBACTAM 3 GM in SODIUM CHLORIDE 0.9% MINIBAG 100 ML IV STA (10:19)
--- NOTE | 2018-06-06 10:23 | ED Physician Documentation ---
History of Present Illness - Stated complaint Stated Complaint: FEMALE - Chief complaint Chief Complaint: Wound - Additonal information Additional information: hx from pt 42 f gastric surgery fibro admitted april 2018 for labial cellulitis and found to have anovag fistual with multiple perirectal abscesses surgery Dr Mccormick was better now sx returned subj fever chills vag pain nausea loose BM s blood no vag dc or bleed Review of Systems Constitutional: reports: Fever, Chills Throat: denies: Sore throat Cardiac: denies: Chest pain / pressure Respiratory: denies: Dyspnea, Cough GI: reports: Other (rectal pain). denies: Abdominal Pain : reports: Other (vaginal pain). denies: Discharge, Vaginal bleeding Endocrine: denies: Easy bruising / bleeding Immunocompromised: denies: Immunocompromised PD PAST MEDICAL HISTORY - Past Medical History Cardiovascular: None, Hypertension, Other Respiratory: None Neuro: Headaches Endocrine/Autoimmune: HyPOthyroidism, Other GI: None CURING ROOM WORKER: None : Incontinence, Frequency, Other HEENT: Chronic vision loss, Chronic hearing loss Psych: Depression, Anxiety, ADD/ADHD Musculoskeletal: Osteoarthritis, Fibromyalgia, Scoliosis, Chronic back pain Derm: None - Past Surgical History Past Surgical History: Yes General: Gastric surgery Ortho: Carpal Tunnel surgery HEENT: Tonsil/Adenoidectomy - Present Medications Home Medications: Ambulatory Orders Medication Instructions Recorded Confirmed hydrOXYzine PAMOATE [Vistaril] 25 mg PO BID 06/22/16 04/18/18 Loratadine [Allergy] 10 mg PO DAILY PRN 09/15/16 04/18/18 Metoprolol Tartrate 75 mg PO DAILY 09/15/16 04/18/18 Promethazine [Phenergan] 25 mg PO TID PRN 09/15/16 04/18/18 Oxybutynin [Ditropan] 5 mg PO BID 08/31/17 04/18/18 Cyclobenzaprine [Flexeril] 10 mg PO BID 04/18/18 04/18/18 Levothyroxine Sodium 100 mcg PO QDAC 04/18/18 04/18/18 Metoprolol Tartrate 100 mg PO QPM 04/18/18 04/18/18 Varenicline Tartrate [Chantix] 1 mg PO DAILY 04/18/18 04/18/18 Vit E/Lidocaine/Aloe/Collagen 1 applic TOP Q8H PRN 04/18/18 04/18/18 [Lidotrex 2% Wound Gel] B Complex with Vitamin C [Vitamin 1 each PO DAILY #30 capsule 04/22/18 B-Complex with Vit C] Ciprofloxacin [Cipro] 250 mg PO BID #10 tablet 04/22/18 Ferrous Gluconate 324 mg PO BID #60 tablet 04/22/18 HYDROcodone/ACET 7.5/325 [[place] 1 tab PO Q4HR PRN #5 tablet 04/22/18 7.5/325] Metoprolol Succinate [Toprol Xl] 12.5 mg PO DAILY #15 tab.er.24h 04/22/18 Multivitamin W/Minerals [Theragran 1 tab PO DAILYWM #30 tablet 04/22/18 M] metroNIDAZOLE [Flagyl] 500 mg PO TID #30 tablet 04/22/18 Clindamycin [Cleocin] 300 mg PO Q6H 7 Days capsule 06/06/18 Ibuprofen [Motrin] 400 mg PO Q6H PRN #30 tablet 06/06/18 Oxycodone HCl/Acetaminophen 1 each PO Q6HR PRN #10 tablet 06/06/18 [Percocet 5-325 mg Tablet] - Allergies Allergies/Adverse Reactions: Allergies Allergy/AdvReac Type Severity Reaction Status Date / Time No Known Drug Allergies Allergy Verified 06/06/18 09:45 - Social History Does the pt smoke?: Yes Smoking Status: Current every day smoker Does the pt drink ETOH?: No Does the pt have substance abuse?: No - Immunizations Immunizations are current?: Yes - POLST Patient has POLST: No POLST Status: Full Code (At this point, she would like everything done including intubation, CPR, tube feeds. If she were to have significant disease state resulting in significant cognitive dysfunction where she has severe memory loss and is 24/ 7 bed bound, let her go) PD ED PE NORMAL - Vitals Vital signs reviewed: Yes (tachy) - Cardiac Cardiac: RRR - Respiratory Respiratory: No respiratory distress - Abdomen Abdomen: Soft, Non tender - Female Female : Other (swollen red L labia with several open lesionsm TTP posterior R labia with fullness as well, palpable flutuance left side on vaginal and rectal exam as well) - Derm Derm: Normal color Results - Vitals Vitals: Vital Signs - 24 hr 06/06/18 09:39 Temperature 36.4 C L Heart Rate 130 H Respiratory 20 Rate Blood Pressure 138/68 H O2 Saturation 100 Oxygen O2 Source [With Activity] Room air O2 Source [Without Activity] Room air O2 Source Room air - EKG (time done) 1015 Rate: Rate (enter#) Rhythm: NSR (see lead II) [place]: Normal Ischemia: Non specific changes Other comments: Other comments (poor baseline) - Rads (name of study) CT pelvis with IV con Radiology: See rad report (no drainable fluid collection) PD MEDICAL DECISION MAKING - ED course ED course: pt meets sepsis criteria ordered lactate blood cx 30 cc /kg IVF and unasyn which would cover carine-rectal abcess order CT pelvis to assess extent of abscess - CT delayed for discussion between house radiologist and surgeon CT = no abscess surgeon consulted but defers to CURING ROOM WORKER rad rec TV sono seen by CURING ROOM WORKER Dr Simons before sono - does not feel abscess to drain, perhaps underlying hydranitis - rec tx with tetracycline or clinda and rec referral to CURING ROOM WORKER for consideration of excision of underlying tracts pt HR down, lactate neg, WBC fine - feel safe to dc at this point mark as no surgery is anticipated - Sepsis Event Vital Signs: Vital Signs - 24 hr 06/06/18 09:39 Temperature 36.4 C L Heart Rate 130 H Respiratory 20 Rate Blood Pressure 138/68 H O2 Saturation 100 Oxygen O2 Source [With Activity] Room air O2 Source [Without Activity] Room air O2 Source Room air Departure - Departure Disposition: 01 Home, Self Care Clinical Impression: Hydradenitis Condition: Good Instructions: Hidradenitis Suppurativa Follow-Up: Yisel Melendez ARNP [Primary Care Provider] - Prescriptions: Oxycodone HCl/Acetaminophen [Percocet 5-325 mg Tablet] 1 each PO Q6HR PRN #10 tablet PRN Reason: Severe Pain Clindamycin [Cleocin] 300 mg PO Q6H 7 Days capsule Ibuprofen [Motrin] 400 mg PO Q6H PRN #30 tablet PRN Reason: Pain Comments: Your labs were fine The CT scan did not show a perirectal abscess this time The CURING ROOM WORKER specialist came to see you and does not think you need surgery today - she recommends treatment with antibiotics an that your PMD refer you to CURING ROOM WORKER for consideration of excision of the underlying infection tracts Return if worse Forms: Activity restrictions
[2018-06-06 10:25] LABS: BILIRUBIN,URINE NEGATIVE (NEGATIVE); GLUCOSE, URINE (UA) NEGATIVE (NEGATIVE); KETONES,URINE (UA) NEGATIVE (NEGATIVE); LEUKOCYTE ESTERASE, URINE TRACE (NEGATIVE); NITRITE,URINE NEGATIVE (NEGATIVE); OCCULT BLOOD,URINE NEGATIVE (NEGATIVE); PROTEIN,URINE NEGATIVE (NEGATIVE); UROBILINOGEN,URINE 0.2 (NORMAL) E.U./dL (NORMAL)
[2018-06-06 10:27] LABS: CLARITY,URINE HAZY (CLEAR); HCG UR QUAL NEGATIVE
[2018-06-06 10:36] LABS: BACTERIA,URINE Many /HPF (None Seen); RBC,URINE 0-5 /HPF (0-5); SQUAMOUS EPITHELIAL CELL,UR MANY Squamous (<= Few)
[2018-06-06 10:57] LABS: BASOPHILS % (AUTO) 0.4 %; EOSINOPHILS # (AUTO) 0.2 10^3/uL (0.0-0.7); EOSINOPHILS % (AUTO) 1.8 %; HGB - HEMOGLOBIN 11.7 g/dL (12.0-16.0); LYMPHOCYTES # (AUTO) 1.4 10^3/uL (1.5-3.5); MEAN CORPUSCULAR HEMOGLOBIN 25.3 pg (27.0-31.0); MEAN CORPUSCULAR HGB CONC 32.6 g/dL (32.0-36.0); MEAN CORPUSCULAR VOLUME 77.7 fL (81.0-99.0); MEAN PLATELET VOLUME 10.1 fL (7.9-10.8); MONOCYTES # (AUTO) 0.6 10^3/uL (0.0-1.0); MONOCYTES % (AUTO) 6.8 %; NEUTROPHILS # (AUTO) 6.7 10^3/uL (1.5-6.6); PLT - PLATELET COUNT 183 10^3/uL (130-450); RED BLOOD COUNT 4.62 10^6/uL (4.20-5.40); RED CELL DISTRIBUTION WIDTH 18.3 % (12.0-15.0); WHITE BLOOD COUNT 8.9 x10^3/uL (4.8-10.8)
[2018-06-06 11:19] LABS: BILIRUBIN,TOTAL 0.4 mg/dL (0.2-1.0); CALCIUM 8.9 mg/dL (8.5-10.3); CREATININE 0.9 mg/dL (0.4-1.0)
[2018-06-06 11:20] LABS: ALBUMIN 3.7 g/dL (3.2-5.5); ALBUMIN/GLOBULIN RATIO 0.9 (1.0-2.2); TOTAL PROTEIN 7.6 g/dL (6.7-8.2)
[2018-06-06] MEDS ORDERED: IOPAMIDOL-300 100 ML VIAL ONE (11:20)
[2018-06-06 11:28] LABS: HCG,QUALITATIVE BLOOD NEGATIVE
[2018-06-06] MEDS ORDERED: SODIUM CHLORIDE 0.9% 2,000 ML IV ONE (12:25)
--- NOTE | 2018-06-06 12:42 | CT Report ---
Reason: rect-vag fistilas and suspect perirectal abscess Procedure Date: 06/06/2018 Accession Number: [id number] / [id number] Procedure: CT - Pelvis W/ CPT Code: FULL RESULT: EXAM: CT PELVIS EXAM DATE: 06/06/2018 12:22 PM. CLINICAL HISTORY: Rectovaginal fistulas and suspect perirectal abscess. COMPARISONS: PELVIS W/ 04/17/2018 10:30 PM. TECHNIQUE: Routine helical CT imaging was performed through the pelvis. IV contrast: ISOVUE 300 100mL. Enteric contrast: No. Reconstructions: Coronal and sagittal. In accordance with CT protocol optimization, one or more of the following dose reduction techniques were utilized for this exam: automated exposure control, adjustment of mA and/or KV based on patient size, or use of iterative reconstructive technique. FINDINGS: There is persistent soft tissue asymmetry and fat stranding between the left gracilis and labia tracking cranially towards the obturator internus and upwards to the left bladder base. The obturator internus itself is relatively symmetric within the limitations of this exam. No definite drainable fluid collection or phlegmon is detected. No abnormal mass, free air or free fluid is seen within the pelvis. Visualized visceral organs are within normal limits. IMPRESSION: No drainable fluid collection with prior fistula findings as described above. Presence or absence of a fistula cannot be determined on this exam. RADIA
[2018-06-06 14:52] VITALS: BP 112/50
--- NOTE | 2018-06-06 16:20 | CONSULTATION NOTE ---
DATE OF CONSULTATION: 06/06/2018 Physician: Alis Simons DO IDENTIFICATION: This is a 42-year-old G4, P4-0-0-4. HISTORY OF PRESENT ILLNESS: I was consulted by Dr. Rosemary Holt to see patient here in the emergency department. Her recent history is remarkable for a prior emergency room visit on 04/18/2018, with similar problems. Patient, at that time, was diagnosed with a rectovaginal fistula, and had an incision and drainage of a complex perianal, perineal and pelvic abscess done by Dr. Lorenzo Mccormick on 04/21/2018. This area was packed with an entire bottle of 1 inch iodoform. More recently, patient states that, within the last day, she started having acute pain in the left groin area. In general, her symptoms have been worsening within the last couple of months. She states that she has had these issues since she was a teenager. She has been able to self-treat herself until this year. Patient states that she has been using powders, as well as rupturing any acne or abscesses that she is able to take care of herself. However, now her symptoms are getting so bad that she is having a difficult time sitting or standing. She rates her pain at most an 8/10. She is experiencing cramping. Patient denies any difficulty with urination or defecation. She denies any fevers or chills. She recalls that her bowel movements are normal and she has 2 bowel movements in a week. She denies any hematochezia. PAST MEDICAL HISTORY 1. Hypothyroidism. 2. Obesity. 3. Supraventricular tachycardia. 4. Chronic migraines. 5. Depression and anxiety. 6. PTSD. 7. Osteoarthritis. 8. Fibromyalgia mainly in the upper body, but located in different areas as well. PAST SURGICAL HISTORY 1. In 2007, gastric bypass surgery, [facility]. Patient recalls that she went from 330 pounds down to 140 pounds. Her symptoms got significantly worsened when she lost that weight. She is currently 260 pounds, per report. 2. Left carpal tunnel surgery. 3. Tonsils and adenoids. ALLERGIES: NO KNOWN DRUG ALLERGIES. MEDICATIONS 1. Synthroid 100 mcg 1 tab p.o. q.a.m. 2. Metoprolol 75 mg 1 tab p.o. b.i.d. 3. Flexeril 10 mg p.o. t.i.d. p.r.n. 4. Vistaril 25 mg 1 tab p.o. b.i.d. p.r.n. 5. Loratadine 10 mg 1 tablet p.o. daily p.r.n. 6. Promethazine 25 mg 1 tab p.o. b.i.d. p.r.n. 7. Ditropan 5 mg 1 tab p.o. b.i.d. SOCIAL HISTORY: Patient is currently accompanied with her , Gian. 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 She states that her , Gian, had a vasectomy. Patient admits to using CBD for long-term pain control. Patient states that she smokes about half a pack of cigarettes per day. She denies any alcohol use. Patient's primary care provider is Yisel Melendez, and her pharmacy of choice is [facility]. PAST OBSTETRICAL HISTORY: Four term spontaneous vaginal deliveries, the largest baby weighing 8 pounds 2 ounces at the time of delivery PAST GYNECOLOGIC HISTORY: She states that her Pap smears have been within normal limits and her most recent Pap smear was performed about 2 years ago. She states that her menses are for the most part every month, and she bleeds for 3-4 days. However, last month, she has had 2 menses during a month period and bled for 4-5 days. She does have dysmenorrhea. Again, patient and Gian are using vasectomy for control. FAMILY HISTORY: Noncontributory. REVIEW OF SYSTEMS: Negative, unless otherwise stated. OBJECTIVE VITAL SIGNS: Temperature is 98.1, heart rate 112, blood pressure 132/75, respiratory rate 18, O2 saturations 99%. GENERAL: Patient is an obese, female who appears to be older than her stated age. She is alert and oriented x3. She does have a very depressed and anxious affect. HEENT: Patient seems to not have a full set of teeth. PELVIC: Female. Patient has several areas of folliculitis on her perineum and gluteal areas. She does have significant areas of infection between the left inferior labial and perilabial areas. The largest area is indurated and appeared to be healing. There is no osmin pustular head. There are 2 areas in the fold that are significant, measuring approximately 1.5 cm in largest diameter. There is no current drainage. The vagina itself is pink and moist. Cervix is posterior. There is a small amount of whitish discharge. Cervix is closed and thick. There are no obvious ulcerations or masses from the cervix. LABORATORIES: 06/06/2018 labs show a white count of 8.9, hemoglobin of 11.7, hematocrit 35.9, platelets are 183. Sodium 137, potassium 4.5, creatinine 0.9, glucose 96. Iron is 22, TIBC is 374, percent saturation is 6%, transferrin is 267, AST 27, ALT 19. Urine shows trace leukocytes, many squamous cells, 0-5 RBCs, and 6-10 WBCs. There are urinary casts, as well as many bacteria. Urine hCG is negative. STUDIES Patient did have recent radiological studies. CT of the pelvis on 06/06/2018 shows a persistent soft tissue asymmetry and fat stranding between the left gracilis and labia tracking cranially towards the obturator internus and upwards to the left bladder base. Obturator internus itself is relatively symmetric within the limitations of this exam. No definite drainable fluid collection or phlegmon is detected. No abnormal mass, free air or free fluid is seen within the pelvis. Visualized visceral organs are within normal limits. The 04/17/2018 CT of the pelvis is remarkable for subcutaneous edema and stranding in the region of the left labia and perineum. A linear density is seen extending from the left perineum subcutaneous fat towards the anorectal region. No clear communication with the rectum or anal canal was seen. The uterus is unremarkable. No adnexal mass. The 04/18/2018 MRI of the pelvis with and without contrast fistulography showing the left perianal space demonstrates phlegmonous changes extending past the puborectalis musculature with formation of 3 abscesses inferiorly measuring 2.8 x 1.0 x 1.9 x 1.2 and 1.1 x 2.7 along the fistula tract. The anal mucosa appears intact with the exception of questionable disruption at the 1-o'clock position approximately 2.5 cm above the anal verge. There appears to be involvement of the vaginal wall at the 5-o'clock position respective to the vagina at the same level. Uterus appears within normal limits, as do remaining pelvic structures. ASSESSMENT 1. A 42-year-old G4, P4-0-0-4. 2. Grade 2 hidradenitis suppurativa. PLAN 1. Cultures for gonorrhea, chlamydia have been done of the cervix. Aerobic and anaerobic cultures of the left labial and perilabial areas have been obtained. Finally, an Affirm of the vagina has been done. 2. Discussed with patient what hidradenitis suppurativa is, and unfortunately there is no good long-term treatment for this disease. I have recommended Dr. Rosemary Holt to put patient on antibiotics. According to [employer], tetracycline is the first line of choice. After that, she can have the option of clindamycin and rifampin. 3. I recommend patient to do conservative methods including keeping these areas clean and dry, making sure that they do not rub against her clothing and maximizing her immune system. She can maximize her immune system by having a healthy diet, getting good sleep and minimizing stress, as well as exercise. 4. Anticipate long-term care for patient. She will be seen at [facility], as she may be a candidate for surgery. TD: 06/06/2018 14:54 MTDAnna
[2018-06-06] MEDS ORDERED: IOPAMIDOL-300 100 ML VIAL IVP ONE (16:43)
== END 2018-06-06 15:03 | disposition home or self-care (01) ==
LOC: ED 09:32
DX: L73.2 Hidradenitis suppurativa (principal); I10 Essential (primary) hypertension; E03.9 Hypothyroidism, unspecified; M79.7 Fibromyalgia; F17.200 Nicotine dependence, unspecified, uncomplicated
CPT/HCPCS: 36415; 72193; 80053; 81001; 81025; 81599; 83605; 83690; 84703; 85025; 87040; 87480; 87510; 87660; 93005; 96361; 96365; 96375; 96376; 99284; J1170; Q9967; 81003; 87086; 87491; 87591

== ENCOUNTER 2018-07-07 19:45 | Emergency (ER) | payer MEDICAID ==
--- NOTE | 2018-07-07 20:32 | ED Physician Documentation ---
PD HPI BACK PAIN - Stated complaint Stated Complaint: BACK PX - Chief complaint Chief Complaint: Back Pain - History obtained from History obtained from: Patient - History of Present Illness Timing - onset: How many weeks ago (1) Timing - details: Gradual onset, Waxing and waning Pain level now: 6 Location: Mid, Lower, Other (mid/lower back pain, midline) Quality: Pain Associated symptoms: No: Fever, Weakness, Numbness, Incontinent of urine, Unable to urinate, Hematuria, Incontinent of stool Improves with: Rest Worsened by: Movement Recently seen: Emergency Dept (T+R 1 month ago (unrelated c/o)) - Additional information Additional information: c/o one week of gradual onset, gradually worsening low/mid back pain. no recent injury. Pain is worse with movement. Had migraine headache yesterday, although this has improved. She took flexeril and ibuprofen earlier today for the back pain without relief. 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: None : Incontinence, Frequency, Other HEENT: Chronic vision loss, Chronic hearing loss Psych: Depression, Anxiety, ADD/ADHD Musculoskeletal: Osteoarthritis, Fibromyalgia, Scoliosis, Chronic back pain Derm: None - Past Surgical History Past Surgical History: Yes General: Gastric surgery Ortho: Carpal Tunnel surgery HEENT: Tonsil/Adenoidectomy - Present Medications Home Medications: Ambulatory Orders Medication Instructions Recorded Confirmed hydrOXYzine PAMOATE [Vistaril] 25 mg PO BID 06/22/16 04/18/18 Loratadine [Allergy] 10 mg PO DAILY PRN 09/15/16 04/18/18 Metoprolol Tartrate 75 mg PO DAILY 09/15/16 04/18/18 Promethazine [Phenergan] 25 mg PO TID PRN 09/15/16 04/18/18 Oxybutynin [Ditropan] 5 mg PO BID 08/31/17 04/18/18 Cyclobenzaprine [Flexeril] 10 mg PO BID 04/18/18 04/18/18 Levothyroxine Sodium 100 mcg PO QDAC 04/18/18 04/18/18 Metoprolol Tartrate 100 mg PO QPM 04/18/18 04/18/18 Varenicline Tartrate [Chantix] 1 mg PO DAILY 04/18/18 04/18/18 Vit E/Lidocaine/Aloe/Collagen 1 applic TOP Q8H PRN 04/18/18 04/18/18 [Lidotrex 2% Wound Gel] B Complex with Vitamin C [Vitamin 1 each PO DAILY #30 capsule 04/22/18 B-Complex with Vit C] Ferrous Gluconate 324 mg PO BID #60 tablet 04/22/18 Metoprolol Succinate [Toprol Xl] 12.5 mg PO DAILY #15 tab.er.24h 04/22/18 Multivitamin W/Minerals [Theragran 1 tab PO DAILYWM #30 tablet 04/22/18 M] Ibuprofen 1 tab PO Q6HR PRN 07/07/18 07/07/18 - Allergies Allergies/Adverse Reactions: Allergies Allergy/AdvReac Type Severity Reaction Status Date / Time No Known Drug Allergies Allergy Verified 07/07/18 19:54 - Social History Does the pt smoke?: Yes Smoking Status: Current every day smoker Does the pt drink ETOH?: No Does the pt have substance abuse?: No - Immunizations Immunizations are current?: Yes - POLST Patient has POLST: No POLST Status: Full Code (At this point, she would like everything done including intubation, CPR, tube feeds. If she were to have significant disease state resulting in significant cognitive dysfunction where she has severe memory loss and is 24/ 7 bed bound, let her go) PD ED PE NORMAL - Vitals Vital signs reviewed: Yes - General General: Alert and oriented X 3, No acute distress, Well developed/nourished - Cardiac Cardiac: RRR, No murmur - Respiratory Respiratory: No respiratory distress, Clear bilaterally - Abdomen Abdomen: Soft, Non tender - Back Back: No CVA TTP, No spinal TTP - Derm Derm: No rash - Neuro Neuro: Alert and oriented X 3, No motor deficit, No sensory deficit Results - Vitals Vitals: Vital Signs - 24 hr 07/07/18 07/07/18 19:47 21:40 Temperature 36.8 C Heart Rate 121 H 100 Respiratory 18 18 Rate Blood Pressure 122/66 115/77 O2 Saturation 100 100 Oxygen O2 Source [With Activity] Room air O2 Source [Without Activity] Room air O2 Source Room air PD MEDICAL DECISION MAKING - ED course Complexity details: reviewed old records, re-evaluated patient, considered differential, d/w patient Departure - Departure Disposition: 01 Home, Self Care Clinical Impression: Back pain Qualifiers: Back pain location: low back pain Chronicity: unspecified Back pain laterality: midline Sciatica presence: without sciatica Qualified Code(s): M54.5 - Low back pain Condition: Good Instructions: ED Neck Back Pain General Follow-Up: Yisel Melendez ARNP [Primary Care Provider] - (Rocky to arrange next available appointment) Discharge Date/Time: 07/07/18 22:47
[2018-07-07] MEDS ORDERED: KETOROLAC 60 MG/2 ML VIAL IM STA (20:56)
[2018-07-07] MEDS ORDERED: diphenhydrAMINE INJ 50 MG/ML VIAL IM STA (20:56)
[2018-07-07] MEDS ORDERED: diazePAM 5 MG TABLET PO STA (20:56)
[2018-07-07 21:41] VITALS: BP 115/77
[2018-07-07] MEDS ORDERED: oxyCODONE 5 MG TABLET PO STA (22:37)
== END 2018-07-07 22:47 | disposition home or self-care (01) ==
LOC: ED 19:45
DX: M54.5 Low back pain (principal); I10 Essential (primary) hypertension; E03.9 Hypothyroidism, unspecified; F17.200 Nicotine dependence, unspecified, uncomplicated
CPT/HCPCS: 96372; 99283; A9270; J1200

== ENCOUNTER 2018-12-06 10:36 | Emergency (ER) | payer MEDICAID ==
[2018-12-06 10:54] LABS: MUDS CUTOFF CONCENTRATIONS CUTOFF CONC BELOW:
[2018-12-06 11:05] LABS: BILIRUBIN,URINE NEGATIVE (NEGATIVE); GLUCOSE, URINE (UA) NEGATIVE (NEGATIVE); KETONES,URINE (UA) 15 mg/dL (NEGATIVE); LEUKOCYTE ESTERASE, URINE NEGATIVE (NEGATIVE); NITRITE,URINE POSITIVE (NEGATIVE); OCCULT BLOOD,URINE LARGE (NEGATIVE); PH,URINE 5.5 PH (5.0-7.5); PROTEIN,URINE TRACE mg/dL (NEGATIVE); UROBILINOGEN,URINE 0.2 (NORMAL) E.U./dL (NORMAL)
[2018-12-06 11:09] LABS: CLARITY,URINE CLOUDY (CLEAR); HCG UR QUAL NEGATIVE
[2018-12-06 11:10] LABS: BACTERIA,URINE Many /HPF (None Seen); SQUAMOUS EPITHELIAL CELL,UR MANY Squamous (<= Few)
[2018-12-06 11:20] LABS: BASOPHILS # (AUTO) 0.1 10^3/uL (0.0-0.1); BASOPHILS % (AUTO) 1.4 %; EOSINOPHILS # (AUTO) 0.2 10^3/uL (0.0-0.7); EOSINOPHILS % (AUTO) 3.1 %; HGB - HEMOGLOBIN 12.2 g/dL (12.0-16.0); LYMPHOCYTES # (AUTO) 1.6 10^3/uL (1.5-3.5); MEAN CORPUSCULAR HGB CONC 33.4 g/dL (32.0-36.0); MEAN CORPUSCULAR VOLUME 74.8 fL (81.0-99.0); MONOCYTES # (AUTO) 0.4 10^3/uL (0.0-1.0); MONOCYTES % (AUTO) 6.3 %; NEUTROPHILS # (AUTO) 4.7 10^3/uL (1.5-6.6); NEUTROPHILS % (AUTO) 67.2 %; PLT - PLATELET COUNT 210 10^3/uL (130-450); RED BLOOD COUNT 4.88 10^6/uL (4.20-5.40); RED CELL DISTRIBUTION WIDTH 17.7 % (12.0-15.0); WHITE BLOOD COUNT 7.1 x10^3/uL (4.8-10.8)
[2018-12-06 11:25] LABS: TRICYCLIC ANTIDEPRESSANT,URINE POSITIVE (NEGATIVE)
[2018-12-06 11:26] LABS: AMPHETAMINE SCREEN,URINE NEGATIVE (NEGATIVE); BENZODIAZEPINES SCREEN, URINE NEGATIVE (NEGATIVE); COCAINE SCREEN URINE NEGATIVE (NEGATIVE); METHADONE SCREEN, URINE NEGATIVE (NEGATIVE); METHAMPHETAMINES SCREEN, URINE NEGATIVE (NEGATIVE); OPIATE SCREEN, URINE NEGATIVE (NEGATIVE); OXYCODONE SCREEN, URINE NEGATIVE (NEGATIVE); PROPOXYPHENE SCREEN, URINE NEGATIVE (NEGATIVE)
[2018-12-06 11:31] LABS: ACETAMINOPHEN < 10 ug/mL (10-30); ALBUMIN 4.3 g/dL (3.2-5.5); ALBUMIN/GLOBULIN RATIO 1.1 (1.0-2.2); ALKALINE PHOSPHATASE 102 IU/L (42-121); ALT ALANINE AMINOTRANSFERASE 17 IU/L (10-60); AST ASPARTATE AMINOTRANSFERASE 26 IU/L (10-42); BILIRUBIN,TOTAL 0.6 mg/dL (0.2-1.0); BUN - BLOOD UREA NITROGEN 10 mg/dL (6-20); CALCIUM 9.4 mg/dL (8.5-10.3); CARBON DIOXIDE - CO2 19 mmol/L (21-32); CHLORIDE 105 mmol/L (101-111); CREATININE 0.9 mg/dL (0.4-1.0); GFR - MDRD 69 (>89); GLUCOSE 97 mg/dL (70-100); LIPASE 30 U/L (22-51); SALICYLATE < 6.0 mg/dL; SODIUM 137 mmol/L (135-145); TOTAL PROTEIN 8.3 g/dL (6.7-8.2)
--- NOTE | 2018-12-06 11:35 | ED Physician Documentation ---
PD HPI MHE - Stated complaint Stated Complaint: SI - Chief complaint Chief Complaint: MHE - History obtained from History obtained from: Patient - History of Present Illness Primary symptom: Suicidal ideation, Depression Timing - onset: How many months ago (2) Contributing factors: Off meds Similar symptoms before: Diagnosis (depression) Recently seen: Not recently seen - Additional information Additional information: 43-year-old female with a history of fibromyalgia and chronic pain has a history of depression and she reports that about 2 months ago her depression worsened. She states that she is having trouble sleeping at night with excessive ruminatio n and she is not enjoying food and she is having suicidal ideations. She states that driving here today she was behind an [address] and felt that if she just spit up enough she might build to get into an accident that would kill her. She states that she did not follow through with anything because of her concern for her children. She reports that she had been on an antidepressant she thinks it was Effexor and she was on it for several months discontinued it in August because she thought it was making her pain worse. The patient has been for more than 14 years and she has a supportive . She has 4 children ages 6-19 and she does have a 9-year-old special needs son and a 14-year-old daughter. The 19-year-old child has recently moved out of the house and her grandmother apparently about 1 month ago. The patient states that all of the grandmothers belongings are in her apartment now. Review of Systems Constitutional: reports: Myalgias, Fatigue. denies: Fever, Chills Eyes: denies: Decreased vision Ears: denies: Ear pain Nose: denies: Rhinorrhea / runny nose, Congestion Throat: denies: Sore throat Cardiac: denies: Chest pain / pressure, Palpitations Respiratory: denies: Dyspnea, Cough GI: denies: Abdominal Pain, Nausea, Vomiting, Constipation, Diarrhea : denies: Dysuria, Frequency Skin: denies: Rash, Lesions Musculoskeletal: reports: Neck pain, Back pain, Extremity pain Neurologic: denies: Generalized weakness, Focal weakness, Numbness Psychiatric: reports: Depressed, Suicidal, Anxiety, Insomnia. 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 : Incontinence, Frequency, Other HEENT: Chronic vision loss, Chronic hearing loss Psych: Depression, Anxiety, ADD/ADHD Musculoskeletal: Osteoarthritis, Fibromyalgia, Scoliosis, Chronic back pain Derm: None - Past Surgical History Past Surgical History: Yes General: Gastric surgery Ortho: Carpal Tunnel surgery HEENT: Tonsil/Adenoidectomy - Present Medications Home Medications: Ambulatory Orders Medication Instructions Recorded Confirmed RX: hydrOXYzine PAMOATE [Vistaril] 25 mg PO BID 06/22/16 04/18/18 RX: Loratadine [Allergy] 10 mg PO DAILY PRN 09/15/16 04/18/18 RX: Metoprolol Tartrate 75 mg PO DAILY 09/15/16 04/18/18 RX: Promethazine [Phenergan] 25 mg PO TID PRN 09/15/16 04/18/18 RX: Oxybutynin [Ditropan] 5 mg PO BID 08/31/17 04/18/18 RX: Cyclobenzaprine [Flexeril] 10 mg PO BID 04/18/18 04/18/18 RX: Levothyroxine Sodium 100 mcg PO QDAC 04/18/18 04/18/18 RX: Metoprolol Tartrate 100 mg PO QPM 04/18/18 04/18/18 RX: Varenicline Tartrate [Chantix] 1 mg PO DAILY 04/18/18 04/18/18 RX: Vit E/Lidocaine/Aloe/Collagen 1 applic TOP Q8H PRN 04/18/18 04/18/18 [Lidotrex 2% Wound Gel] Metoprolol Succinate [Toprol Xl] 12.5 mg PO DAILY #15 tab.er.24h 04/22/18 RX: B Complex with Vitamin C 1 each PO DAILY #30 capsule 04/22/18 [Vitamin B-Complex with Vit C] RX: Ferrous Gluconate 324 mg PO BID #60 tablet 04/22/18 RX: Multivitamin W/Minerals 1 tab PO DAILYWM #30 tablet 04/22/18 [Theragran M] RX: Ibuprofen 1 tab PO Q6HR PRN 07/07/18 07/07/18 - Allergies Allergies/Adverse Reactions: Allergies Allergy/AdvReac Type Severity Reaction Status Date / Time No Known Drug Allergies Allergy Verified 12/06/18 10:49 - Social History Does the pt smoke?: Yes Smoking Status: Current every day smoker Does the pt drink ETOH?: No Does the pt have substance abuse?: No - Immunizations Immunizations are current?: Yes - POLST Patient has POLST: No POLST Status: Full Code (At this point, she would like everything done including intubation, CPR, tube feeds. If she were to have significant disease state resulting in significant cognitive dysfunction where she has severe memory loss and is 24/ 7 bed bound, let her go) PD ED PE NORMAL - Vitals Vital signs reviewed: Yes (tachy ) - General General: Alert and oriented X 3, Well developed/nourished, Other (Broad tears and a very sad face with a flattened affect.) - HEENT HEENT: Atraumatic, PERRL, EOMI, Ears normal, Moist mucous membranes, Pharynx benign - Neck Neck: Supple, no meningeal sign, No bony TTP - Cardiac Cardiac: No murmur, Other (tachy to 110) - Respiratory Respiratory: No respiratory distress, Clear bilaterally - Abdomen Abdomen: Soft, Non tender - Back Back: No CVA TTP, No spinal TTP - Derm Derm: Normal color, Warm and dry, No rash - Extremities Extremities: No deformity, No edema - Neuro Neuro: Alert and oriented X 3, rheumatology specialist 2-12 intact, No motor deficit, No sensory de ficit, Normal speech Eye Opening: Spontaneous Motor: Obeys Commands Verbal: Oriented GCS Score: 15 - Psych Psych: Other (mood is sad and the affect is flat ) Results - Vitals Vitals: Vital Signs - 24 hr 12/06/18 12/06/18 10:47 13:45 Temperature 36.7 C Heart Rate 112 H 107 H Respiratory 18 16 Rate Blood Pressure 150/77 H 113/70 O2 Saturation 100 100 Oxygen O2 Source [] Room air O2 Source [] Room air O2 Source Room air - Labs Labs: Laboratory Tests 12/06/18 12/06/18 12/06/18 10:44 10:44 11:07 WBC 7.1 RBC 4.88 Hgb 12.2 Hct 36.5 L MCV 74.8 L MCH 25.0 L MCHC 33.4 RDW 17.7 H Plt Count 210 MPV 10.0 Neut # (Auto) 4.7 Lymph # (Auto) 1.6 [place] # (Auto) 0.4 Eos # (Auto) 0.2 Baso # (Auto) 0.1 Absolute Nucleated RBC 0.00 Nucleated RBC % 0.0 Sodium Potassium Chloride Carbon Dioxide Anion Gap BUN Creatinine Estimated GFR (MDRD) Glucose Calcium Total Bilirubin AST ALT Alkaline Phosphatase Total Protein Albumin Globulin Albumin/Globulin Ratio Lipase TSH Urine Color BROWN Urine Clarity CLOUDY Urine pH 5.5 Ur Specific [place] >=1.030 H >=1.030 H Urine Protein TRACE Urine Glucose (UA) NEGATIVE Urine Ketones 15 H Urine Occult Blood LARGE H Urine Nitrite POSITIVE H Urine Bilirubin NEGATIVE Urine Urobilinogen 0.2 (NORMAL) Ur Leukocyte Esterase NEGATIVE Urine RBC 6-10 H Urine WBC 11-25 H Ur Squamous Epith Cells MANY Squamous H Urine Bacteria Many H Ur Microscopic Review INDICATED Urine Culture Comments NOT INDICATED Urine HCG, Qual NEGATIVE Salicylates Urine Opiates Screen NEGATIVE Ur Oxycodone Screen NEGATIVE Urine Methadone Screen NEGATIVE Ur Propoxyphene Screen NEGATIVE Acetaminophen Ur Barbiturates Screen NEGATIVE Ur Tricyclics Screen POSITIVE H Ur Phencyclidine Scrn NEGATIVE Ur Amphetamine Screen NEGATIVE U Methamphetamines Scrn NEGATIVE U Benzodiazepines Scrn NEGATIVE Urine Cocaine Screen NEGATIVE U Cannabinoids Screen POSITIVE H Ethyl Alcohol 12/06/18 12/06/18 11:07 11:07 WBC RBC Hgb Hct MCV MCH MCHC RDW Plt Count MPV Neut # (Auto) Lymph # (Auto) [place] # (Auto) Eos # (Auto) Baso # (Auto) Absolute Nucleated RBC Nucleated RBC % Sodium 137 Potassium 4.0 Chloride 105 Carbon Dioxide 19 L Anion Gap 13.0 BUN 10 Creatinine 0.9 Estimated GFR (MDRD) 69 L Glucose 97 Calcium 9.4 Total Bilirubin 0.6 AST 26 ALT 17 Alkaline Phosphatase 102 Total Protein 8.3 H Albumin 4.3 Globulin 4.0 Albumin/Globulin Ratio 1.1 Lipase 30 TSH 1.40 Urine Color Urine Clarity Urine pH Ur Specific [place] Urine Protein Urine Glucose (UA) Urine Ketones Urine Occult Blood Urine Nitrite Urine Bilirubin Urine Urobilinogen Ur Leukocyte Esterase Urine RBC Urine WBC Ur Squamous Epith Cells Urine Bacteria Ur Microscopic Review Urine Culture Comments Urine HCG, Qual Salicylates < 6.0 Urine Opiates Screen Ur Oxycodone Screen Urine Methadone Screen Ur Propoxyphene Screen Acetaminophen < 10 L Ur Barbiturates Screen Ur Tricyclics Screen Ur Phencyclidine Scrn Ur Amphetamine Screen U Methamphetamines Scrn U Benzodiazepines Scrn Urine Cocaine Screen U Cannabinoids Screen Ethyl Alcohol < 5.0 Procedures - IVC sono (time) 1130 Bedside IVC sono: IVC measures (cm) (1.47), Euvole[facility] PD MEDICAL DECISION MAKING - ED course Complexity details: reviewed old records, reviewed results, re-evaluated patient, considered differential, d/w patient ED course: 43-year-old female history of fibromyalgia has chronic depression and her depression has worsened she is now suicidal and not sleeping. She is medically cleared the social media editor is consulted. The patient has chronic suicidal ideation and will not act on it. She has never had an attempt and she is willing to contract for safety with the social media editor and follow up plans are in place. Departure - Departure Disposition: 01 Home, Self Care Clinical Impression: Depression, Suicidal ideation Instructions: Depression Help Tips, Suicide Warning Signs What Do, ED Depression Follow-Up: Konstantin Saavedra MD [Primary Care Provider] - Discharge Date/Time: 12/06/18 13:51
[2018-12-06] MEDS ORDERED: ACETAMINOPHEN 325 MG TABLET PO STA (13:42)
[2018-12-06 13:51] VITALS: BP 113/70
--- NOTE | 2018-12-09 06:08 | ED Physician Documentation ---
ED Addendum - Addendum Addendum: 12/09/18 06:07 Chart accessed for culture review. Urine culture grew >100K E. Coli, recommend rx macrobid 100mg PO BID x 5 days.
== END 2018-12-06 13:51 | disposition home or self-care (01) ==
LOC: ED 10:36
DX: R45.851 Suicidal ideations (principal); F32.9 Major depressive disorder, single episode, unspecified; A49.8 Other bacterial infections of unspecified site; I10 Essential (primary) hypertension; E03.9 Hypothyroidism, unspecified; M79.7 Fibromyalgia; M41.9 Scoliosis, unspecified; G89.29 Other chronic pain; F17.200 Nicotine dependence, unspecified, uncomplicated
CPT/HCPCS: 36415; 80053; 80306; 80307; 80320; 80329; 81001; 81025; 83690; 84443; 85025; 87086; 87181; 99283; 99284; A9270; 81003